=== PATIENT | female | born 1965 ===

== ENCOUNTER 2022-06-04 08:39 | Outpatient (REF) | payer OTHER, SELFPAY ==
--- NOTE | ~2022-06-04 | XR_ITS ---
EXAMINATION: XR HAND, BILATERAL CLINICAL INFORMATION: Osteoarthritis. COMPARISON: None. TECHNIQUE: Three views of the right hand. Three views of the left hand. FINDINGS: There is no acute fracture or subluxation. No suspicious focal bony lesion. No aggressive periosteal new bone formation. MINERALIZATION: Normal. ALIGNMENT: Normal. SOFT TISSUE CALCIFICATIONS: There are soft tissue calcifications associated with the right second and third PIP joints and the right fifth DIP joint. Small soft tissue calcifications present in the region of the left second PIP and the IP and the left third and fourth DIP joints. No chondrocalcinosis in the region of the triangular fibrocartilage on her side JOINT SPACES: There is mild to moderate narrowing of the DIP joints bilaterally. No narrowing of the radiocarpal joint, intercarpal or carpometacarpal joints. No significant narrowing of the MCP joints. OSTEOPHYTES: There are proliferative changes associated with the DIP joints greatest involving the IP joints of each thumb, and the right fifth and left second and third DIP joints. CYSTS/EROSIONS: No convincing cystic or erosive changes. Trace cysts involving the dorsum of the right first proximal phalanx could be present. SOFT TISSUE SWELLING: None. OTHER: None. XR/XR hand RT min 3V IMPRESSION: There are some soft tissue calcifications in a periarticular distribution primarily distally. There are some proliferative changes associated with the DIP joints. No significant erosive arthropathy. Overall pattern could be related to osteoarthritis No previous for comparison
--- NOTE | ~2022-06-04 | XR_ITS ---
EXAMINATION: XR HAND, BILATERAL CLINICAL INFORMATION: Osteoarthritis. COMPARISON: None. TECHNIQUE: Three views of the right hand. Three views of the left hand. FINDINGS: There is no acute fracture or subluxation. No suspicious focal bony lesion. No aggressive periosteal new bone formation. MINERALIZATION: Normal. ALIGNMENT: Normal. SOFT TISSUE CALCIFICATIONS: There are soft tissue calcifications associated with the right second and third PIP joints and the right fifth DIP joint. Small soft tissue calcifications present in the region of the left second PIP and the IP and the left third and fourth DIP joints. No chondrocalcinosis in the region of the triangular fibrocartilage on her side JOINT SPACES: There is mild to moderate narrowing of the DIP joints bilaterally. No narrowing of the radiocarpal joint, intercarpal or carpometacarpal joints. No significant narrowing of the MCP joints. OSTEOPHYTES: There are proliferative changes associated with the DIP joints greatest involving the IP joints of each thumb, and the right fifth and left second and third DIP joints. CYSTS/EROSIONS: No convincing cystic or erosive changes. Trace cysts involving the dorsum of the right first proximal phalanx could be present. SOFT TISSUE SWELLING: None. OTHER: None. XR/XR hand LT min 3V IMPRESSION: There are some soft tissue calcifications in a periarticular distribution primarily distally. There are some proliferative changes associated with the DIP joints. No significant erosive arthropathy. Overall pattern could be related to osteoarthritis No previous for comparison
== END 2022-06-04 08:40 | disposition home or self-care (01) ==
LOC: HO.XRAY 08:39
PROVIDERS: PCP Internal Medicine; Visit Provider Internal Medicine Rheumatology
DX: M17.0 Bilateral primary osteoarthritis of knee (principal); M19.041 Primary osteoarthritis, right hand; M19.042 Primary osteoarthritis, left hand; M79.7 Fibromyalgia; M10.9 Gout, unspecified; M19.071 Primary osteoarthritis, right ankle and foot; M47.816 Spondylosis without myelopathy or radiculopathy, lumbar region
CPT/HCPCS: 20610; 73130; 99212

== ENCOUNTER 2022-10-13 14:14 | Outpatient (REF) | payer OTHER, SELFPAY ==
[2022-10-13 15:01] LABS: Anion Gap 12 (12-20); Blood Urea Nitrogen 16 mg/dL (9-16); Calcium 9.7 mg/dL (8.4-10.2); Carbon Dioxide 25 mmol/L (22-29); Chloride 109 mmol/L (96-108); Estimated Glomerular Filt Rate > 60; Glucose Random 89 mg/dL (60-115); Potassium 4.6 mmol/L (3.3-5.1); Sodium 141 mmol/L (135-145); Uric Acid 7.7 mg/dL (2.4-5.7)
== END 2022-10-13 14:15 | disposition home or self-care (01) ==
LOC: HO.XRAY 14:14
PROVIDERS: PCP Internal Medicine; Visit Provider Internal Medicine Rheumatology
DX: M47.816 Spondylosis without myelopathy or radiculopathy, lumbar region (principal); M19.041 Primary osteoarthritis, right hand; M19.042 Primary osteoarthritis, left hand; M79.671 Pain in right foot; M79.672 Pain in left foot; M79.7 Fibromyalgia; M10.9 Gout, unspecified
CPT/HCPCS: 36415; 73630; 80048; 84550; 99212

== ENCOUNTER 2023-04-13 14:09 | Outpatient (REF) | payer OTHER, SELFPAY ==
--- NOTE | ~2023-04-13 | XR_ITS ---
EXAMINATION: XR FOOT, LEFT CLINICAL INFORMATION: Pain COMPARISON: None available. TECHNIQUE: AP, lateral, and oblique views of the left foot. FINDINGS: There is a small calcaneal heel and retrocalcaneal enthesophytes. Ankle mortise and subtalar joints are normal. No visible fracture, dislocation subluxation seen involving the left foot. The soft tissues are normal XR/XR foot LT min 3V IMPRESSION: Small calcaneal heel and retrocalcaneal enthesophytes. No visible acute fracture, dislocation or subluxation seen.
[2023-04-13 17:07] LABS: Estimated Glomerular Filt Rate 50; Uric Acid 9.2 mg/dL (2.4-5.7)
== END 2023-04-13 14:10 | disposition home or self-care (01) ==
LOC: HO.LAB 14:09
PROVIDERS: PCP Internal Medicine; Visit Provider Internal Medicine Rheumatology
DX: M10.9 Gout, unspecified (principal); M17.0 Bilateral primary osteoarthritis of knee; M19.041 Primary osteoarthritis, right hand; M19.042 Primary osteoarthritis, left hand; M19.071 Primary osteoarthritis, right ankle and foot; M47.816 Spondylosis without myelopathy or radiculopathy, lumbar region; M79.672 Pain in left foot
CPT/HCPCS: 36415; 73630; 82565; 84550; 99212

== ENCOUNTER 2023-04-29 14:04 | Outpatient (REF) | payer OTHER, SELFPAY ==
[2023-04-29 14:52] LABS: Estimated Glomerular Filt Rate > 60; Uric Acid 6.1 mg/dL (2.4-5.7)
== END 2023-04-29 14:05 | disposition home or self-care (01) ==
LOC: HO.LAB 14:04
PROVIDERS: PCP Internal Medicine; Visit Provider Internal Medicine Rheumatology
DX: M10.9 Gout, unspecified (principal)
CPT/HCPCS: 36415; 82565; 84550

== ENCOUNTER 2023-06-02 11:49 | Outpatient (REF) | payer OTHER, SELFPAY ==
[2023-06-02 13:20] LABS: Estimated Glomerular Filt Rate > 60; Uric Acid 5.6 mg/dL (2.4-5.7)
== END 2023-06-02 11:50 | disposition home or self-care (01) ==
LOC: HO.LAB 11:49
PROVIDERS: PCP Internal Medicine; Visit Provider Internal Medicine Rheumatology
DX: M10.9 Gout, unspecified (principal)
CPT/HCPCS: 36415; 82565; 84550

== ENCOUNTER 2023-07-29 09:54 | Outpatient (REF) | payer OTHER, SELFPAY ==
[2023-07-29 11:57] LABS: Estimated Glomerular Filt Rate > 60; Uric Acid 4.5 mg/dL (2.4-5.7)
== END 2023-07-29 09:55 | disposition home or self-care (01) ==
LOC: HO.WFDLDS 09:54
PROVIDERS: Visit Provider Internal Medicine Rheumatology
DX: M10.9 Gout, unspecified (principal)
CPT/HCPCS: 36415; 82565; 84550

== ENCOUNTER 2023-08-19 10:58 | Outpatient (AMB) | payer OTHER, SELFPAY ==
[2023-08-19 11:00] VITALS: BP 118/70; PULSE 87; TEMP 36.3; O2SAT 97; BMI 48.2
--- NOTE | 2023-08-19 11:00 | MHC.OFFVIS ---
Intake Vital Signs 08/19/23 11:00 Height 4 ft 11 in Weight 238 lb 12.17 oz BMI 48.2 BP 118/70 Blood Pressure Location Lt brachial Position Sitting Pulse 87 Pulse Source Pulse Oximeter Temp 97.3 F Temp Source Skin Pulse Oximetry (%) 97 Oxygen Delivery Method Room Air Intake Visit Reasons: Gout Intake Note: Patient presents today to follow up on gout and test results. Patient would like to decrease allopurinol. Requesting medication list for traveling. 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 Accompanied by: Self / Same As Patient Allergies azithromycin [AZITHROMYCIN] Allergy (Unknown, Unverified 08/19/23 11:04) UNKNOWN Penicillins [PENICILLINS] Allergy (Unknown, Unverified 08/19/23 11:04) SEIZURE Medication List - Last Reconciled 08/19/23 by Sivakumar Rodriguez MD acetaminophen (Tylenol Extra Strength) 500 mg PO Q6H PRN albuterol sulfate 90 mcg/actuation (ProAir HFA) 2 puffs inhalation Q6H PRN albuterol sulfate 90 mcg/actuation 2 puffs inhalation Q6H PRN allopurinol 300 mg PO DAILY cetirizine 10 mg PO DAILY citalopram 40 mg PO DAILY clonazepam 1 mg PO BEDTIME PRN fluticasone propion-salmeterol 115-21 mcg/actuation (Advair HFA) 2 puffs inhalation BID fluticasone propionate 50 mcg/actuation 2 sprays intranasal DAILY hydrochlorothiazide 25 mg PO DAILY levothyroxine 75 mcg PO DAILY lisinopril 10 mg PO DAILY omeprazole 20 mg PO DAILY quetiapine 50 mg PO BEDTIME zolpidem 10 mg PO BEDTIME PRN HPI HPI Comments History of Present Illness Details The patient returns for evaluation of her gout, fibromyalgia, and osteoarthritis. She has been on a stable dose of 300 mg daily allopurinol for the last few months. She reports no gout attacks. She has not been needing the prednisone for the gout. She still has overall muscle aches and pains that she feels are due to her fibromyalgia. The knees are worse with prolonged standing or walking and they have occasional swelling. She is taking some Tylenol extra-strength for that on her intermittent basis. She remains on citalopram and clonazepam. [facility] Medical History (Updated 08/19/23 @ 13:39 by Sivakumar Rodriguez MD) Trigger finger of all digits of both hands Carpal tunnel syndrome on both sides Surgical History History of cholecystectomy History of hysterectomy History of appendectomy Social History Household Members Other:: lives alone Housing: Apartment Are you a primary adult care provider to a significant other at home: No Do you presently have visiting nurse or other home services: No 75 years or older and lives alone: No Alcohol intake: never Patient Tobacco Use Status: Never used Tobacco e-Cigarette/Vaping Use: Never Used service: No Current occupational status: disabled Cognitive needs: No Hearing needs: No Vision needs: Yes Review of Systems Const Details: Negative for appetite change, weight change, fever, chills, malaise and fatigue Eyes Details: Negative for vision change, dry eyes,headaches and dizziness GI Details: Negative indigestion/heartburn, nausea, abdominal pain, bowel changes, diarrhea, constipation and bloody stool. Skin/Breast Details: Negative for itching, rash, hives, Raynaud's symptoms, sun sensitivity, and skin cancer Endo Details: Negative for polyuria and polydypsia Jim/Lymph Details: Negative for excessive bruising or bleeding. Physical Exam Vital Signs: Last Vital Signs Temp 97.3 F 08/19/23 11:00 Pulse 87 08/19/23 11:00 BP 118/70 08/19/23 11:00 Pulse Ox 97 08/19/23 11:00 Oxygen Delivery Method Room Air 08/19/23 11:00 BMI result Body Mass Index 48.2 APPEARANCE: Patient in no acute distress EYES no redness, pupils equal and reactive to light, eyelids normal EXTREMITIES: No edema, no calf tenderness. There are areas of superficial varicosities in the legs; they are not tender today. She has normal peripheral pulses. SKIN: No inflammatory or neoplastic lesions. Normal color and turgor JOINT EXAM: Cervical Spine:.? Mild pain with lateral flexion to 10 degrees to either side.? Pain is felt mostly over the posterior cervical muscle area where she has some mild tenderness. Thoracic Spine:.? No scoliosis.? No tenderness on palpation. Lumbar Spine:.? Alignment normal.? Mild pain with extremes Full range of motion, no tenderness. Chest Wall:.? No tenderness, swelling, increased warmth or erythema. Hands:.? Right:? No flexor tendon trigger tenderness or triggering is appreciated.? There is evidence of surgery at the 1st 3 flexor tendons.? There is some mild bony enlargement with minimal tenderness at the 2nd through 5th DIP joints.? No other areas of tenderness or swelling.? Left:? Evidence for surgery at the 2nd and 3rd flexor tendons but no triggering.? There is mild bony enlargement and mild tenderness at the thumb IP and the 2nd, 3rd and 5th PIP's.? No thenar atrophy or sensory loss.? Wrists:.? Right:? Mild pain with flexion or extension to 75 degrees with some slight tenderness but no swelling.? Left:? Normal pain-free range of motion without tenderness, swelling, increased warmth or erythema. Elbows: Normal pain-free range of motion without tenderness, swelling, increased warmth or erythema. Shoulders:.??Right:? Full range of motion without pain. No tenderness, weakness, swelling, increased warmth or erythema.? Left:? Mild pain with abduction 150 degrees.? Slight anterior tenderness without abductor weakness or adenopathy. Hips:? Full range of motion without pain. Hip bursa:.? No tenderness. Knees:.?? Right:? Mild pain with extremes of normal flexion or extension.? There is slight medial and lateral tenderness without redness or effusion.? Left:? Normal pain-free range of motion with some mild medial compartment tenderness without effusion, swelling, increased warmth or erythema.? Ankles:.? Normal pain-free range of motion without tenderness, swelling, increased warmth or erythema. Feet:.? Right: There is mild 1st MTP bony enlargement bilaterally.? This area is not tender but there is hallux valgus deformity.? There is no instep or MTP tenderness. No tenderness in the toes. Left: There is no swelling or tenderness in the instep region. The 1st MTP has slight tenderness and minimal bony enlargement. No tenderness or swelling in the toes. No redness or warmth. Tender points:? Mild tenderness to digital palpation at the occiput, trapezius, second rib, lateral epicondyle, knees, greater trochanter and gluteal area bilaterally. Results Reviewed Results Reviewed: Laboratory Tests 08/08/23 08/08/23 10/04/23 11:58 11:58 09:57 Creatinine 0.91 0.81 Uric Acid 5.6 07/29/23 09:57 Creatinine Uric Acid 4.5 [address] [place] [address] XRay Report Signed Patient: Shweta Alarcon MR#: [id number] : 1965 Acct:[id number] Age/Sex: 57 / F ADM Date: 04/13/[address]: Sivakumar Rodriguez MD Ordering Physician: Sivakumar Rodriguez MD Date of Service: 04/13/23 Procedure(s): XR foot LT min 3V Accession Number(s): [id number] cc: Sivakumar Rodriguez MD~ EXAMINATION: XR FOOT, LEFT CLINICAL INFORMATION: Pain COMPARISON: None available. TECHNIQUE: AP, lateral, and oblique views of the left foot. FINDINGS: There is a small calcaneal heel and retrocalcaneal enthesophytes. Ankle mortise and subtalar joints are normal. No visible fracture, dislocation subluxation seen involving the left foot. The soft tissues are normal XR/XR foot LT min 3V IMPRESSION: Small calcaneal heel and retrocalcaneal enthesophytes. No visible acute fracture, dislocation or subluxation seen. Dictated By: Yunior Auguste MD Assessment & Plan Assessment & Plan (1) Osteoarthritis of hands, bilateral: Code(s): M19.041 - Primary osteoarthritis, right hand; M19.042 - Primary osteoarthritis, left hand (2) Osteoarthritis of knees, bilateral: Code(s): M17.0 - Bilateral primary osteoarthritis of knee (3) Fibromyalgia: Code(s): M79.7 - Fibromyalgia (4) Gout: Code(s): M10.9 - Gout, unspecified Plan Gout with good control of hyperuricemia. There do not appear to be any signs of acute gout presently. She has some signs of osteoarthritis in the hands and knees. Otherwise the multiple tender points and widespread pain are consistent with fibromyalgia. She will continue with acetaminophen if needed. I suggest some diclofenac gel on the DIP joints when they are uncomfortable from osteoarthritis. A recheck visit in a year would be reasonable if her primary doctor wants us to refill the allopurinol but at this dose it seems to be controlling her hyperuricemia well. Medications: New diclofenac sodium 1% apply to involved joints once or twice a day 1 - 2 grams topical QID 100 grams 4RF M19.041 - Primary osteoarthritis, right hand, M19.042 - Primary osteoarthritis, left hand Coding Level of Care Code Est Pt Level 3 (25647) Diagnoses Osteoarthritis of hands, bilateral M19.041; M19.042 Osteoarthritis of knees, bilateral M17.0 Fibromyalgia M79.7 Gout M10.9
== END 2023-08-19 11:27 | disposition home or self-care (01) ==
PROVIDERS: PCP Internal Medicine; Visit Provider Internal Medicine Rheumatology
DX: M19.041 Primary osteoarthritis, right hand (principal); M19.042 Primary osteoarthritis, left hand; M17.0 Bilateral primary osteoarthritis of knee; M79.7 Fibromyalgia; M10.9 Gout, unspecified
CPT/HCPCS: 99213

== ENCOUNTER → 2023-08-19 10:58 | Outpatient (BNVA) | payer OTHER, SELFPAY | PROVIDERS: PCP Internal Medicine; Visit Provider Internal Medicine Rheumatology | DX: M17.0 Bilateral primary osteoarthritis of knee (principal); M79.7 Fibromyalgia; M10.9 Gout, unspecified; M19.041 Primary osteoarthritis, right hand; M19.042 Primary osteoarthritis, left hand | CPT/HCPCS: 99212 ==

== ENCOUNTER 2024-03-22 10:04 | Outpatient (AMB) | payer OTHER, SELFPAY ==
--- NOTE | 2024-03-22 10:34 | MHC.OFFVIS ---
Vital Signs 03/22/24 10:59 Height 4 ft 11 in Weight 236 lb 5.369 oz BMI 47.7 BP 110/62 Blood Pressure Location Rt brachial Position Sitting Pulse 82 Pulse Oximetry (%) 97 Intake Visit Reasons: Gout Intake Note: Patient presents today for evaluation on right knee pain and possible cortisone injection. Jewel Hole Driller Required: No Allergies azithromycin [AZITHROMYCIN] Allergy (Unknown, Unverified 03/22/24 10:40) UNKNOWN Penicillins [PENICILLINS] Allergy (Unknown, Unverified 03/22/24 10:40) SEIZURE HPI Comments Details: Ms. Alarcon 58 yoF returns for follow-up of her gout, fibromyalgia, and osteoarthritis. She has been on a stable dose of 300 mg daily allopurinol for the last few months. She reports no gout attacks. She has not been needing the prednisone for the gout. She still has overall muscle aches and pains that she feels are due to her fibromyalgia and also Obesity. The knees are worse with prolonged standing or walking and they have occasional swelling. She is taking Tylenol extra-strength for that on her intermittent basis. She remains on citalopram and clonazepam --long time (over 3 years) for knee injections. --today the right knee is worse - feels a pulling in the back when tries to straighten, --She has been walking and losing weight. - knee sometimes feels unstable and paulie - the knee brace she uses rolls. 08/19/2023 Dr. Rodriguez: The patient returns for evaluation of her gout, fibromyalgia, and osteoarthritis. She has been on a stable dose of 300 mg daily allopurinol for the last few months. She reports no gout attacks. She has not been needing the prednisone for the gout. She still has overall muscle aches and pains that she feels are due to her fibromyalgia. The knees are worse with prolonged standing or walking and they have occasional swelling. She is taking some Tylenol extra-strength for that on her intermittent basis. She remains on citalopram and clonazepam. [facility] Medical History (Updated 03/22/24 @ 10:51 by TANIA Mcgowan) Trigger finger of all digits of both hands Carpal tunnel syndrome on both sides Surgical History History of cholecystectomy History of hysterectomy History of appendectomy Social History Household Members Other:: lives alone Housing: Apartment Are you a primary medication care manager to a significant other at home: No Do you presently have visiting nurse or other home services: No 75 years or older and lives alone: No Alcohol intake: never Patient Tobacco Use Status: Never used Tobacco e-Cigarette/Vaping Use: Never Used service: No Current occupational status: disabled Cognitive needs: No Hearing needs: No Vision needs: Yes Review of Systems Const All systems reviewed & are unremarkable except as noted in HPI and below Physical Exam APPEARANCE: Patient in no acute distress EYES no redness, pupils equal and reactive to light, eyelids normal EXTREMITIES: No edema, no calf tenderness. There are areas of superficial varicosities in the legs; they are not tender today. She has normal peripheral pulses. SKIN: No inflammatory or neoplastic lesions. Normal color and turgor JOINT EXAM: Cervical Spine:.? Mild pain with lateral flexion to 10 degrees to either side.? Pain is felt mostly over the posterior cervical muscle area where she has some mild tenderness. Thoracic Spine:.? No scoliosis.? No tenderness on palpation. Lumbar Spine:.? Alignment normal.? Mild pain with extremes Full range of motion, no tenderness. Chest Wall:.? No tenderness, swelling, increased warmth or erythema. Hands:.? Right:? No flexor tendon trigger tenderness or triggering is appreciated.? There is evidence of surgery at the 1st 3 flexor tendons.? There is some mild bony enlargement with minimal tenderness at the 2nd through 5th DIP joints.? No other areas of tenderness or swelling.? Left:? Evidence for surgery at the 2nd and 3rd flexor tendons but no triggering.? There is mild bony enlargement and mild tenderness at the thumb IP and the 2nd, 3rd and 5th PIP's.? No thenar atrophy or sensory loss.? Wrists:.? Right:? Mild pain with flexion or extension to 75 degrees with some slight tenderness but no swelling.? Left:? Normal pain-free range of motion without tenderness, swelling, increased warmth or erythema. Elbows: Normal pain-free range of motion without tenderness, swelling, increased warmth or erythema. Shoulders:.??Right:? Full range of motion without pain. No tenderness, weakness, swelling, increased warmth or erythema.? Left:? Mild pain with abduction 150 degrees.? Slight anterior tenderness without abductor weakness or adenopathy. Hips:? Full range of motion without pain. Hip bursa:.? No tenderness. Knees:.?? Right:? Mild pain with extremes of normal flexion or extension.? There is slight medial and lateral tenderness without redness or effusion.?Tenderness to back with palpation. Left:? Normal pain-free range of motion with some mild medial compartment tenderness without effusion, swelling, increased warmth or erythema.? Ankles:.? Normal pain-free range of motion without tenderness, swelling, increased warmth or erythema. Feet:.? Right: There is mild 1st MTP bony enlargement bilaterally.? This area is not tender but there is hallux valgus deformity.? There is no instep or MTP tenderness. No tenderness in the toes. Left: There is no swelling or tenderness in the instep region. The 1st MTP has slight tenderness and minimal bony enlargement. No tenderness or swelling in the toes. No redness or warmth. Tender points:? Mild tenderness to digital palpation at the occiput, trapezius, second rib, lateral epicondyle, knees, greater trochanter and gluteal area bilaterally. Assessment & Plan Assessment & Plan (1) Osteoarthritis of hands, bilateral: Code(s): M19.041 - Primary osteoarthritis, right hand; M19.042 - Primary osteoarthritis, left hand Category: Medical Qualifiers: Osteoarthritis type: primary Qualified Code(s): M19.041 - Primary osteoarthritis, right hand; M19.042 - Primary osteoarthritis, left hand (2) Osteoarthritis of knees, bilateral: Code(s): M17.0 - Bilateral primary osteoarthritis of knee Category: Medical Qualifiers: Osteoarthritis type: primary Qualified Code(s): M17.0 - Bilateral primary osteoarthritis of knee (3) Gout: Code(s): M10.9 - Gout, unspecified Category: Medical Qualifiers: Gout site: multiple sites Encounter type: sequela Chronicity: chronic Presence of tophus: without tophus Plan #Gout and OA:Gout with good control of hyperuricemia. There do not appear to be any signs of acute gout presently. She can continue allopurinol 300mg QD (by PCP) as this dose seems to be controlling her hyperuricemia well. She has some signs of osteoarthritis in the hands and knees. She will continue with acetaminophen if needed and also diclofenac gel on the DIP joints when they are uncomfortable from osteoarthritis. Obtain labs 1 week before next visit #Right Knee Pain/Ovidio Knee OA:Today the the right knee is more bothersome, with posterior tenderness and possible hercules cyst. Waiting for [facility] from [facility]. Recommend a knee brace to help with stability during prolonged activities such as walking which she does for exercise. Patient will call if she desires a knee injection if the right knee is not improved with brace, Tylenol and hamstring stretches. The patient may also benefit from proper foot wear when she walks for long periods. Recommended foot analysis at the [id number]. #Fibromyalgia: The multiple tender points and widespread pain are consistent with fibromyalgia. A recheck visit in 6 months. 30 minutes spent reviewing history, evaluating patient and documenting Orders: Orders Uric Acid Today M10.9 - Gout, unspecified, M17.0 - Bilateral primary osteoarthritis of knee Comprehensive Met. Panel Today M10.9 - Gout, unspecified, M17.0 - Bilateral primary osteoarthritis of knee Complete Blood Count Auto Diff Today M10.9 - Gout, unspecified, M17.0 - Bilateral primary osteoarthritis of knee C Reactive Protein Today M10.9 - Gout, unspecified, M17.0 - Bilateral primary osteoarthritis of knee Erythrocyte Sedimentation Rate Today M10.9 - Gout, unspecified, M17.0 - Bilateral primary osteoarthritis of knee Medications: New leg brace (Knee Brace Large-XLarge) Apply to knee, especially right during prolong activities such as walking. 1 ea 0RF M17.0 - Bilateral primary osteoarthritis of knee Coding Level of Care Code Est Pt Level 4 (51883) Complex EM visit Add On G2211 Diagnoses Primary osteoarthritis of both hands M19.041; M19.042 Osteoarthritis type: primary Primary osteoarthritis of both knees M17.0 Osteoarthritis type: primary Gout M10.9 Gout site: multiple sites Encounter type: sequela Chronicity: chronic Presence of tophus: without tophus
[2024-03-22 10:59] VITALS: BP 110/62; PULSE 82; O2SAT 97; BMI 47.7
== END 2024-03-22 11:24 | disposition home or self-care (01) ==
PROVIDERS: PCP Internal Medicine; Visit Provider Nurse Practitioner Family
DX: M19.041 Primary osteoarthritis, right hand (principal); M19.042 Primary osteoarthritis, left hand; M17.0 Bilateral primary osteoarthritis of knee; M10.9 Gout, unspecified
CPT/HCPCS: 99214; G2211

== ENCOUNTER → 2024-03-22 10:04 | Outpatient (BNVA) | payer OTHER, SELFPAY | PROVIDERS: PCP Internal Medicine; Visit Provider Nurse Practitioner Family | DX: M19.041 Primary osteoarthritis, right hand (principal); M19.042 Primary osteoarthritis, left hand; M17.0 Bilateral primary osteoarthritis of knee; M10.9 Gout, unspecified | CPT/HCPCS: 99212 ==

== ENCOUNTER 2024-05-17 07:37 | Outpatient (AMB) | payer OTHER, SELFPAY ==
[2024-05-17 07:45] VITALS: BP 120/70; PULSE 77; O2SAT 99; BMI 48.9
--- NOTE | 2024-05-17 07:45 | MHC.OFFVIS ---
Vital Signs 05/17/24 07:45 Height 4 ft 11 in Weight 242 lb 1.081 oz BMI 48.9 BP 120/70 Blood Pressure Location Lt brachial Position Sitting Pulse 77 Pulse Source Pulse Oximeter Pulse Oximetry (%) 99 Oxygen Delivery Method Room Air Intake Visit Reasons: Knee pain/swelling/cm Intake Note: Patient is here for knee pain and swelling for almost a month. Wheat Buyer Required: No Accompanied by: Self / Same As Patient Allergies azithromycin [AZITHROMYCIN] Allergy (Unknown, Unverified 05/17/24 07:50) UNKNOWN Penicillins [PENICILLINS] Allergy (Unknown, Unverified 05/17/24 07:50) SEIZURE Medication List - Last Reconciled 05/17/24 by Nanette Velasco MD acetaminophen (Tylenol Extra Strength) 500 mg PO Q6H PRN albuterol sulfate 90 mcg/actuation (ProAir HFA) 2 puffs inhalation Q6H PRN albuterol sulfate mg inhalation allopurinol 300 mg PO DAILY cetirizine 10 mg PO DAILY citalopram 40 mg PO DAILY clonazepam 1 mg PO BEDTIME PRN diclofenac sodium 1% 1 - 2 grams topical QID fluticasone propion-salmeterol 115-21 mcg/actuation (Advair HFA) 2 puffs inhalation BID fluticasone propionate 50 mcg/actuation 2 sprays intranasal DAILY hydrochlorothiazide 25 mg PO DAILY leg brace (Knee Brace Large-XLarge) Apply to knee, especially right during prolong activities such as walking. levothyroxine 75 mcg PO DAILY lisinopril 10 mg PO DAILY omeprazole 20 mg PO DAILY quetiapine 50 mg PO BEDTIME rizatriptan mg PO zolpidem 10 mg PO BEDTIME PRN HPI Comments Details: This is a 58-year-old female with gout, generalized osteoarthritis and fibromyalgia who presents for evaluation of right knee pain. Did that for the last 3 weeks she has been having significant right knee pain. She does not recall an injury, she feels that her right knee locks and catches and almost gives out on her, no significant swelling. Difficulty with walking. Inability to fully extend the knee. She stated that had knee injections in the past, most recent was about a year and a half ago. She stated that knee injections generally provide reasonable relief PFSH Medical History Trigger finger of all digits of both hands Carpal tunnel syndrome on both sides Surgical History History of cholecystectomy History of hysterectomy History of appendectomy Social History Household Members Other:: lives alone Housing: Apartment Are you a primary palliative care coordinator to a significant other at home: No Do you presently have visiting nurse or other home services: No 75 years or older and lives alone: No Alcohol intake: never Patient Tobacco Use Status: Never used Tobacco e-Cigarette/Vaping Use: Never Used service: No Current occupational status: disabled Cognitive needs: No Hearing needs: No Vision needs: Yes Review of Systems Musc Reports arthralgias, Reports limited range of motion and Reports stiffness Physical Exam Vital Signs: Last Vital Signs Pulse 77 05/17/24 07:45 BP 120/70 05/17/24 07:45 Pulse Ox 99 05/17/24 07:45 Oxygen Delivery Method Room Air 05/17/24 07:45 BMI result Body Mass Index 48.9 Const General: cooperative, healthy appearing and comfortable Nutritional Appearance: obese morbidly obese Orientation/consciousness: patient oriented x3 Limitations: no limitations HEENT Head: Yes normocephalic and Yes atraumatic Mouth: moist mucous membranes Resp Effort & Inspection: normal respiratory effort and able to speak in complete sentences Skin General skin exam: no rashes or lesions noted Neuro General: patient oriented x3 Extrem Other: Right knee warmth, inability to fully extend the knee Pain with flexion-extension of the knee Office Procedures Joint Injection/Drain Joint Injection/Drain Primary Site: right knee Prep: site was prepped using sterile technique and ethochloride spray was applied Injected: 40 mg of, Kenalog, with 1 mL of, 1% plain lidocaine and in the joint Approach Used: medial parapatellar Procedure: The patient tolerated the procedure well Coding Details: With the patient's consent the right knee was prepped with ChloraPrep and alcohol. The skin was anesthetized with 2 cc of 1% lidocaine. The knee was then injected with 40 mg of triamcinolone and 1 cc of I % lidocaine. The patient tolerated the procedure with no immediate adverse effects. 25373 - Large joint Procedure code (CPT) selection complete Assessment & Plan Assessment & Plan (1) Osteoarthritis of knees, bilateral: Code(s): M17.0 - Bilateral primary osteoarthritis of knee Category: Medical Qualifiers: Osteoarthritis type: primary Qualified Code(s): M17.0 - Bilateral primary osteoarthritis of knee Plan: This is a 58-year-old female with gout, osteoarthritis and fibromyalgia who presents for evaluation of right knee pain. Known bilateral knee osteoarthritis. Right knee pain worsening over the last 3-4 weeks associated with locking, catching. Right knee is warm on exam. With patient's consent, right knee was injected with Kenalog. If no improvement in about 2 months, will consider knee MRI to rule out internal derangement (2) Gout: Code(s): M10.9 - Gout, unspecified Category: Medical Qualifiers: Gout site: multiple sites Encounter type: subsequent encounter Chronicity: chronic Presence of tophus: without tophus Plan: Gout well controlled on allopurinol 300 mg daily. Check uric acid level before next visit Plan I spent 30 minutes reviewing patient's chart, evaluating patient, ordering diagnostic workup, counseling patient and documenting in the chart Orders: Orders AMB Joint Injection/Aspiration Today M17.0 - Bilateral primary osteoarthritis of knee Uric Acid 2 Months M10.9 - Gout, unspecified, M17.0 - Bilateral primary osteoarthritis of knee Comprehensive Met. Panel 2 Months M10.9 - Gout, unspecified, M17.0 - Bilateral primary osteoarthritis of knee Coding Level of Care Code Est Pt Level 4 (66638) Diagnoses Primary osteoarthritis of both knees M17.0 Osteoarthritis type: primary Gout M10.9 Gout site: multiple sites Encounter type: subsequent encounter Chronicity: chronic Presence of tophus: without tophus CPT Codes Coding - 19399 Large joint: 20868 - Large joint ([id number])
== END 2024-05-17 08:23 | disposition home or self-care (01) ==
PROVIDERS: PCP Internal Medicine; Visit Provider Student in an Organized Health Care Education/Training Program
DX: M17.0 Bilateral primary osteoarthritis of knee (principal); M10.9 Gout, unspecified
CPT/HCPCS: 20610; 99214

== ENCOUNTER → 2024-05-17 07:37 | Outpatient (BNVA) | payer OTHER, SELFPAY | PROVIDERS: PCP Internal Medicine; Visit Provider Student in an Organized Health Care Education/Training Program | DX: M17.0 Bilateral primary osteoarthritis of knee (principal); M10.9 Gout, unspecified; Z79.899 Other long term (current) drug therapy | CPT/HCPCS: 20610; 99212; J2003; J3301 ==

== ENCOUNTER 2024-07-18 10:33 | Outpatient (REF) | payer OTHER, SELFPAY ==
[2024-07-18 10:46] LABS: MANUAL DIFF FLAG NO
[2024-07-18 11:45] LABS: Basophils Percent Auto 0.3 % (0-2); Eosinophils Absolute Auto 0.1 X10*3/uL (0.0-0.4); Eosinophils Percent Auto 1.7 % (0-4); Hematocrit 41.2 % (37.0-47.0); Hemoglobin 13.3 g/dl (12.0-16.0); Imm Gran Abs Auto 0.02 X10*3/uL (0.00-0.03); Imm Gran Pct Auto 0.3 % (0.0-0.4); Lymphocytes Absolute Auto 1.5 X10*3/uL (1.2-4.9); Lymphocytes Percent Auto 22.8 % (20-40); Mean Corpuscular HGB Conc 32.3 g/dl (31.0-35.0); Mean Corpuscular Hemoglobin 29.9 pg (27.0-33.0); Mean Corpuscular Volume 92.6 fL (80.0-98.0); Mean Platelet Volume 11.8 fL (9.4-12.3); Monocytes Absolute Auto 0.5 X10*3/uL (0.1-1.2); Monocytes Percent Auto 7.7 % (2-11); Neutrophils Absolute Auto 4.4 x10*3/uL (2.0-8.3); Neutrophils Percent Auto 67.2 % (45-73); Platelet Count 221 X10*3/uL (160-400); Red Blood Count 4.45 X10*6/uL (4.20-5.50); Red Cell Distribution Width 13.1 % (11.0-16.0); White Blood Count 6.5 X10*3/uL (4.8-10.8)
[2024-07-18 12:31] LABS: Erythrocyte Sedimentation Rate 37 MM/HR (0-20)
[2024-07-18 12:37] LABS: Alanine Aminotransferase 16 U/L (0-31); Albumin Level 4.1 g/dL (3.5-5.0); Alkaline Phosphatase 80 U/L (39-117); Anion Gap 10 (12-20); Aspartate Amino Transferase 12 U/L (5-31); Bilirubin Total 0.3 mg/dL (0.0-1.0); Blood Urea Nitrogen 13 mg/dL (9-16); C Reactive Protein 0.76 mg/dL (< or = 0.50); Calcium 9.5 mg/dL (8.4-10.2); Carbon Dioxide 29 mmol/L (22-29); Chloride 110 mmol/L (96-108); Estimated Glomerular Filt Rate > 60; Glucose Random 101 mg/dL (60-115); Potassium 4.5 mmol/L (3.3-5.1); Sodium 144 mmol/L (135-145); Total Protein 7.5 g/dL (6.5-8.0); Uric Acid 7.9 mg/dL (2.4-5.7)
== END 2024-07-18 10:34 | disposition home or self-care (01) ==
LOC: HO.LAB 10:33
PROVIDERS: Nurse Practitioner Family; PCP Internal Medicine; Visit Provider Student in an Organized Health Care Education/Training Program
DX: M17.0 Bilateral primary osteoarthritis of knee (principal); M10.9 Gout, unspecified
CPT/HCPCS: 36415; 80053; 84550; 85025; 85652; 86140

== ENCOUNTER 2024-09-02 07:10 | Outpatient (AMB) | payer OTHER, SELFPAY ==
--- NOTE | 2024-09-02 07:19 | A.OFFVIS_ITS ---
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 Allergies azithromycin [AZITHROMYCIN] Allergy (Unknown, Verified 09/02/24 07:24) UNKNOWN Penicillins [PENICILLINS] Allergy (Unknown, Verified 09/02/24 07:24) SEIZURE Medication List - Last Reconciled 09/02/24 by Emely Estes MD acetaminophen (Tylenol Extra Strength) 500 mg PO Q6H PRN albuterol sulfate 90 mcg/actuation (ProAir HFA) 2 puffs inhalation Q6H PRN albuterol sulfate mg inhalation allopurinol 300 mg PO DAILY cetirizine 10 mg PO DAILY citalopram 40 mg PO DAILY clonazepam 1 mg PO BEDTIME PRN diclofenac sodium 1% 1 - 2 grams topical QID fluticasone propion-salmeterol 115-21 mcg/actuation (Advair HFA) 2 puffs inhalation BID fluticasone propionate 50 mcg/actuation 2 sprays intranasal DAILY hydrochlorothiazide 25 mg PO DAILY leg brace (Knee Brace Large-XLarge) Apply to knee, especially right during prolong activities such as walking. levothyroxine 75 mcg PO DAILY lisinopril 10 mg PO DAILY omeprazole 20 mg PO DAILY quetiapine 50 mg PO BEDTIME rizatriptan mg PO zolpidem 10 mg PO BEDTIME PRN HPI Comments Details: Patient is a 59-year-old morbidly obese female with non crystal proven gout, hypertension, hypothyroidism and polyarticular osteoarthritis who presents today for an acute sick visit for left knee pain Interval History: Patient last seen 05/14/[address] Chente jesus for an acute visit for right knee pain. She was given an intra-articular steroid injection at that time with relief. With respect to her gout she is currently on allopurinol 300 however her uric acid is not at goal and she is no longer taking colchicine because it irritates her stomach Today she complains of a 3 day history of left knee pain and swelling. Denies any trauma Rheumatologic History: Non crystal proven gout Polyarticular osteoarthritis involving knees and hands Current Rheumatology Medication(s): Allopurinol 300 mg daily Colchicine 0.6 mg daily [facility] Medical History Trigger finger of all digits of both hands Carpal tunnel syndrome on both sides Surgical History History of cholecystectomy History of hysterectomy History of appendectomy Social History Household Members Other:: lives alone Housing: Apartment Are you a primary care attendant to a significant other at home: No Do you presently have visiting nurse or other home services: No 75 years or older and lives alone: No Alcohol intake: never Patient Tobacco Use Status: Never used Tobacco e-Cigarette/Vaping Use: Never Used service: No Current occupational status: disabled Cognitive needs: No Hearing needs: No Vision needs: Yes Review of Systems Const Details: Review of Systems Constitutional: Denies fever, chills, weight loss ENT: Denies vision changes, eye pain or eye redness, dental caries, dry mouth GI: Denies nausea, vomiting, diarrhea, abdominal pain, change in BM Pulm: Denies SOB, LOPEZ, hemoptysis, wheezing Cards: Denies chest pain, palpitations Skin: Denies Raynaud's, rash, nail changes, photosensitivity, ON CALL PHARMACY TECHNICIAN: Denies headaches, weakness, paresthesias, recurrent falls MSK: as per HPI All other systems reviewed and are unremarkable except noted above Physical Exam Vital Signs: Last Vital Signs Pulse 78 09/02/24 07:25 BP 124/80 09/02/24 07:25 Pulse Ox 98 09/02/24 07:25 Oxygen Delivery Method Room Air 09/02/24 07:25 BMI result Body Mass Index 47.7 Physical Examination CONSTITUITIONAL Patient alert and cooperative. Well appearing and in no apparent painful distress HEENT Conjunctiva and sclera clear. ?Pupils equal round and reactive to light. ?No lymphadenopathy. ?Normal dentition. No oral or nasal ulcers noted. No evidence of discoid rash to the alisha of ears CHEST/RESPIRATORY SYSTEM Normal respiratory effort and able to speak in complete sentences. ?Clear to auscultation bilaterally. ?No crackles, rales, rhonchi, wheezes heard. CARDIAC SYSTEM Regular rate and rhythm. ?S1 and S2 heard no murmurs. ?Radial pulses intact bilaterally MSK Hands: ?Good retirement sales consultant strength bilaterally - 5/5. ?No deformities noted. ?No synovitis noted to the MCPs, PIPs or DIPs. ?No tenderness to palpation of these joints. Wrists: ?Full range of motion at the wrists without pain. ?No tenderness to palpation or synovitis noted to the wrists. Elbows: Full range of motion without pain. No tenderness, weakness, swelling, increased warmth or erythema. Shoulders: Full range of motion without pain. No tenderness, weakness, swelling, increased warmth or erythema. Hips: Full range of motion without pain. Hip bursa: No tenderness to palpation Knees: ?Left knee obese and warm to touch unable to fully appreciate if there is any swelling because of the size of the knees. Right knee without warmth or tenderness to palpation Ankles: Full range of motion. ?No tenderness, swelling, increased warmth or erythema.? Feet: ?Negative squeeze test. ?No tenderness to palpation or swelling of the MTPs. Tender points:??No tenderness to palpation of the neck, shoulders, chest, elbows, hips, buttocks or knees. SKIN Skin intact without rashes. Office Procedures AMB Joint Injection/Aspiration Joint Injection/Aspiration Details: Procedure was explained to the patient and consent was obtained. ? The area of interest was identified and confirmed with patient. ?This was subsequently cleaned with chlorhexidine x3. ? The area was then anesthetized using ethyl chloride spray. 40 mg Kenalog with 1 cc 1% lidocaine was injected without issue. ?Minimal to no bleeding. ?Patient tolerated procedure. Primary Site: left knee Prep: site was prepped using aseptic technique and ethochloride spray was applied Injected: 40 mg of, Kenalog, with 1 mL of, 1% plain lidocaine and in the joint Approach Used: medial parapatellar Procedure: The patient tolerated the procedure well Coding 82370 - Large joint Procedure code (CPT) selection complete Office Meds Kenalog 40 mg/mL suspension for injection Performing Provider: Emely Estes MD Performing Location: [facility] [place] [facility] Administered by: Emely Estes MD on 09/02/24 08:12 Dose Route Admin Location Dispensed Lot Number Expiration Date [facility] Devulcanizer Operator 40 mg intra-articular 1 mL [id number] 02/23/26 [address]-7 [employer] lidocaine (PF) 10 mg/mL (1 %) injection solution Performing Provider: Emely Estes MD Performing Location: [facility] [place] [facility] Administered by: Emely Estes MD on 09/02/24 08:12 Dose Route Admin Location Dispensed Lot Number Expiration Date [employer] Devulcanizer Operator 10 mg Infiltration 2 mL [id number] 01/24/27 31917-564-16 [employer] Results Reviewed Results Reviewed: Laboratory Tests 07/18/24 10:44 WBC 6.5 RBC 4.45 Hgb 13.3 Hct 41.2 MCV 92.6 MCH 29.9 MCHC 32.3 Plt Count 221 ESR 37 H Sodium 144 Potassium 4.5 Chloride 110 H Carbon Dioxide 29 Anion Gap 10 L BUN 13 Creatinine 0.86 Uric Acid 7.9 H C-Reactive Protein 0.76 H Assessment & Plan Assessment & Plan (1) Gout flare: Code(s): M10.9 - Gout, unspecified Qualifiers: Gout site: knee Gout etiology: idiopathic Laterality: left Qualified Code(s): M10.062 - Idiopathic gout, left knee Plan: #Acute monoarticular arthritis Patient presents with acute monoarticular arthritis involving the left knee. Differentials include gout flare, OA flare, infection. Arthrocentesis performed however no fluid was removed. Attempted suprapatellar and medial parapatellar approaches and both were met with dry taps. Injected 40 mg of Kenalog with 1 cc 1% lidocaine. Based on her last uric acid which was 7.9 we will presume this is a gout flare. Plan to increase her allopurinol from 300-400 mg daily. We will add prednisolone 2.5 mg daily and stop colchicine since this causes GI issues and this prohibits her from taking it. (2) Gout: Code(s): M10.9 - Gout, unspecified Category: Medical Qualifiers: Chronicity: chronic Gout site: multiple sites Presence of tophus: without tophus Gout etiology: idiopathic Qualified Code(s): M1A.09X0 - Idiopathic chronic gout, multiple sites, without tophus (tophi) Plan: # non crystal proven non tophaceous gout Patient uric acid not at goal and last check we will increase allopurinol and ensure patient is taking prednisone to prevent flares while we get uric acid under control (3) Osteoarthritis of knees, bilateral: Code(s): M17.0 - Bilateral primary osteoarthritis of knee Category: Medical Qualifiers: Osteoarthritis type: primary Qualified Code(s): M17.0 - Bilateral primary osteoarthritis of knee Plan: #OA knees Physical therapy Plan I spent 40 minutes reviewing the record and labs, seeing the patient, discussing the treatment plan and documenting in the medical record ? Orders: Orders Comprehensive Met. Panel 3 Months M10.9 - Gout, unspecified, M17.0 - Bilateral primary osteoarthritis of knee Uric Acid 3 Months M10.9 - Gout, unspecified, M17.0 - Bilateral primary osteoarthritis of knee C Reactive Protein 3 Months M10.9 - Gout, unspecified, M17.0 - Bilateral primary osteoarthritis of knee Erythrocyte Sedimentation Rate 3 Months M10.9 - Gout, unspecified, M17.0 - Bilateral primary osteoarthritis of knee AMB Joint Injection/Aspiration Today M10.9 - Gout, unspecified, M17.0 - Bilateral primary osteoarthritis of knee Medications: New allopurinol 400 mg (2 x 200 mg) PO DAILY 180 tabs 1RF M10.9 - Gout, unspecified prednisone 2.5 mg PO DAILY 90 tabs 1RF M10.9 - Gout, unspecified Discontinued allopurinol Note dose increase to 300 mg daily Discontinued Reason: Doctor's Order 300 mg PO DAILY 90 tabs 3RF M10.9 - Gout, unspecified Coding Level of Care Code Est Pt Level 5 (68266) Complex EM visit Add On G2211 Diagnoses Acute idiopathic gout of left knee M10.062 Gout site: knee Gout etiology: idiopathic Laterality: left Idiopathic chronic gout of multiple sites without tophus M1A.09X0 Chronicity: chronic Gout site: multiple sites Presence of tophus: without tophus Gout etiology: idiopathic Primary osteoarthritis of both knees M17.0 Osteoarthritis type: primary CPT Codes Coding - 42311 Large joint: 51640 - Large joint ([id number])
[2024-09-02 07:25] VITALS: BP 124/80; PULSE 78; O2SAT 98; BMI 47.7
== END 2024-09-02 07:59 | disposition home or self-care (01) ==
LOC: HO.RHE 07:10
PROVIDERS: PCP Internal Medicine; Visit Provider Student in an Organized Health Care Education/Training Program
DX: M10.062 Idiopathic gout, left knee (principal); M1A.09X0 Idiopathic chronic gout, multiple sites, without tophus (tophi); M17.0 Bilateral primary osteoarthritis of knee; M10.9 Gout, unspecified
CPT/HCPCS: 20610; 99215

== ENCOUNTER → 2024-09-02 07:10 | Outpatient (BNVA) | payer OTHER, SELFPAY | PROVIDERS: PCP Internal Medicine; Visit Provider Student in an Organized Health Care Education/Training Program | DX: M10.062 Idiopathic gout, left knee (principal); M1A.09X0 Idiopathic chronic gout, multiple sites, without tophus (tophi); M17.0 Bilateral primary osteoarthritis of knee | CPT/HCPCS: 20610; 99212; J2003; J3300 ==

== ENCOUNTER 2024-09-21 12:20 | Outpatient (AMB) | payer OTHER, SELFPAY ==
[2024-09-21 12:39] VITALS: BP 132/80; PULSE 90; BMI 48.5
--- NOTE | 2024-09-21 12:39 | A.OFFVIS_ITS ---
Vital Signs 09/21/24 12:39 Height 4 ft 11 in Weight 240 lb 4.862 oz BMI 48.5 BP 132/80 Blood Pressure Location Rt brachial Position Sitting Pulse 90 Pulse Source Pulse Oximeter Intake Visit Reasons: Knee pain/Gout./cm Intake Note: Patient presents today for a follow-up on Knee Pain/Gout: Pain scale 1-10, 6: Chemist Steroids Required: No Accompanied by: Self / Same As Patient Allergies azithromycin [AZITHROMYCIN] Allergy (Unknown, Verified 09/21/24 12:41) UNKNOWN Penicillins [PENICILLINS] Allergy (Unknown, Verified 09/21/24 12:41) SEIZURE Medication List - Last Reconciled 09/21/24 by Emely Estes MD acetaminophen (Tylenol Extra Strength) 500 mg PO Q6H PRN albuterol sulfate 90 mcg/actuation (ProAir HFA) 2 puffs inhalation Q6H PRN albuterol sulfate mg inhalation allopurinol 400 mg (2 x 200 mg) PO DAILY cetirizine 10 mg PO DAILY citalopram 40 mg PO DAILY clonazepam 1 mg PO BEDTIME PRN diclofenac sodium 1% 1 - 2 grams topical QID fluticasone propion-salmeterol 115-21 mcg/actuation (Advair HFA) 2 puffs inhalation BID fluticasone propionate 50 mcg/actuation 2 sprays intranasal DAILY hydrochlorothiazide 25 mg PO DAILY leg brace (Knee Brace Large-XLarge) Apply to knee, especially right during prolong activities such as walking. levothyroxine 75 mcg PO DAILY lisinopril 10 mg PO DAILY omeprazole 20 mg PO DAILY prednisone 2.5 mg PO DAILY quetiapine 50 mg PO BEDTIME rizatriptan mg PO zolpidem 10 mg PO BEDTIME PRN HPI Comments Details: Patient is a 59-year-old morbidly obese female with non crystal proven gout, hypertension, hypothyroidism and polyarticular osteoarthritis who presents today for an acute sick visit for left knee pain Interval History: Patient last seen 09/02/2024 with me. At that time she was complaining of pain and swelling to her left knee. Examination was consistent with an acute gout flare. Arthrocentesis was performed however it was a dry tap likely secondary to her body habitus. Steroids were injected. Based on her uric acid her allopurinol was increased from 300-400 mg and her colchicine was switched Prednisone due to side effects. Today she reports improvement after about 3 days post injection. Overall the pain is improved but she now notices some instability involving bilateral knees. Rheumatologic History: Non crystal proven gout Polyarticular osteoarthritis involving knees and hands Current Rheumatology Medication(s): [id number] mg daily Prednisone 2.5mg [facility] Medical History (Updated 09/21/24 @ 13:23 by Emely Estes MD) Current use of steroid medication On allopurinol therapy Trigger finger of all digits of both hands Carpal tunnel syndrome on both sides Surgical History History of cholecystectomy History of hysterectomy History of appendectomy Social History Household Members Other:: lives alone Housing: Apartment Are you a primary residential caregiver to a significant other at home: No Do you presently have visiting nurse or other home services: No 75 years or older and lives alone: No Alcohol intake: never Patient Tobacco Use Status: Never used Tobacco e-Cigarette/Vaping Use: Never Used service: No Current occupational status: disabled Cognitive needs: No Hearing needs: No Vision needs: Yes Review of Systems Const Details: Review of Systems Constitutional: Denies fever, chills, weight loss ENT: Denies vision changes, eye pain or eye redness, dental caries, dry mouth GI: Denies nausea, vomiting, diarrhea, abdominal pain, change in BM Pulm: Denies SOB, LOPEZ, hemoptysis, wheezing Cards: Denies chest pain, palpitations Skin: Denies Raynaud's, rash, nail changes, photosensitivity, LABORER STORES: Denies headaches, weakness, paresthesias, recurrent falls MSK: as per HPI All other systems reviewed and are unremarkable except noted above Physical Exam Vital Signs: Last Vital Signs Pulse 90 09/21/24 12:39 BP 132/80 09/21/24 12:39 BMI result Body Mass Index 48.5 Physical Examination CONSTITUITIONAL Patient alert and cooperative. Well appearing and in no apparent painful distress HEENT Conjunctiva and sclera clear. No evidence of discoid rash to the alisha of ears CHEST/RESPIRATORY SYSTEM Normal respiratory effort and able to speak in complete sentences. ?Clear to auscultation bilaterally. ?No crackles, rales, rhonchi, wheezes heard. CARDIAC SYSTEM Regular rate and rhythm. ?S1 and S2 heard no murmurs. ?Radial pulses intact bilaterally MSK Hands: ?Good rail director strength bilaterally - 5/5. ?No deformities noted. ?No synovitis noted to the MCPs, PIPs or DIPs. ?No tenderness to palpation of these joints. No tophi noted Wrists: ?Full range of motion at the wrists without pain. ?No tenderness to palpation or synovitis noted to the wrists. Elbows: Full range of motion without pain. No tenderness, weakness, swelling, increased warmth or erythema. Shoulders: Full range of motion without pain. No tenderness, weakness, swelling, increased warmth or erythema. Hips: Full range of motion without pain. Hip bursa: No tenderness to palpation Knees: ?Bilateral knees with full range of motion. No warmth or tenderness to palpation. Ankles: Full range of motion. ?No tenderness, swelling, increased warmth or erythema.? Feet: ?Negative squeeze test. ?No tenderness to palpation or swelling of the MTPs. Tender points:??No tenderness to palpation of the neck, shoulders, chest, elbows, hips, buttocks or knees. SKIN Skin intact without rashes. Results Reviewed Results Reviewed: Laboratory Tests 07/29/23 07/18/24 09:57 10:44 WBC 6.5 RBC 4.45 Hgb 13.3 Hct 41.2 Plt Count 221 ESR 37 H Sodium 144 Potassium 4.5 Chloride 110 H Carbon Dioxide 29 BUN 13 Creatinine 0.86 Uric Acid 4.5 7.9 H C-Reactive Protein 0.76 H Assessment & Plan Assessment & Plan (1) Osteoarthritis of knees, bilateral: Code(s): M17.0 - Bilateral primary osteoarthritis of knee Category: Medical Qualifiers: Osteoarthritis type: primary Qualified Code(s): M17.0 - Bilateral primary osteoarthritis of knee Plan: #Bilateral Knee OA Patient with bilateral knee OA. Check x-rays. Send to physical therapy. (2) Gout: Comment: Allopurinol therapy Colchicine - stopped due to diarrhea Code(s): M10.9 - Gout, unspecified Category: Medical Qualifiers: Chronicity: chronic Gout etiology: idiopathic Gout site: multiple sit es Presence of tophus: without tophus Qualified Code(s): M1A.09X0 - Idiopathic chronic gout, multiple sites, without tophus (tophi) Plan: #Non tophaceous non crystal proven gout Check uric acid today Continue allopurinol 400 daily for now. Uric acid goal less than 6 Continue prednisone 2.5 mg until uric acid at goal. We will try to limit Prednisone given that she is prediabetic and she is also complaining of side effects even on the low dose of 2.5. No further gout flares (3) On allopurinol therapy: Code(s): Z79.899 - Other manager terminal (current) drug therapy Category: Medical Plan: #Long-term Current Use of Allopurinol Risks and benefits of allopurinol discussed with patient Benefits include decreased gout flares, remission of gout and reduction of tophi Risks include allopurinol hypersensitivity syndrome which is a severe cutaneous adverse reaction associated with allopurinol use particularly in patients who are HLA B*5801 positive, increased transaminases, GI upset including diarrhea, nausea and vomiting, and other dermatologic manifestations. [HLA B*5801 checked] (4) Current use of steroid medication: Code(s): Z79.52 - terminal makeup operator (current) use of systemic steroids Category: Medical Plan: #Long-term Use of Steroids Discussed with patient the risks and benefits of steroid for managing the rheumatic condition Benefits include: - Reduced pain, improved mobility, increased participation in activities, and decreased progression of disease Risks include: - GI upset, potential ultrasound worsening or formation (especially in patients > 65 years old), elevated blood pressure/worsening hypertension, elevated blood sugar/worsening diabetes control, worsening of bone density, elevated lipids/worsening triglycerides, cataract formation, weight gain Recommended using proton pump inhibitors (PPIs) for the duration of steroid use to reduce the risk of gastric ulcers and vitamin-D daily to reduce the risk of osteoporosis Labs checked: ?A1c, T spot, hepatitis-B and C serologies Pneumocystis jiroveci prophylaxis: ?Patient with risk factors including steroids greater than 50 mg for more than 30 days, age greater than 60 years, and lung involvement from underlying rheumatic disease requires prophylaxis and will be given so Plan I spent 20 minutes reviewing the record and labs, seeing the patient, discussing the treatment plan and documenting in the medical record ? Orders: Orders C Reactive Protein Today M1A.09X0 - Idiopathic chronic gout, multiple sites, without tophus (tophi), Z79.52 - terminal makeup operator (current) use of systemic steroids, Z79.899 - Other senior care (current) drug therapy Comprehensive Met. Panel Today M1A.09X0 - Idiopathic chronic gout, multiple sites, without tophus (tophi), Z79.52 - [facility] (current) use of systemic steroids, Z79.899 - Other senior care (current) drug therapy XR knee RT 3V Today M17.0 - Bilateral primary osteoarthritis of knee XR knee LT 3V Today M17.0 - Bilateral primary osteoarthritis of knee XR knee standing BI Today M17.0 - Bilateral primary osteoarthritis of knee PT Evaluation and Treatment Today M17.0 - Bilateral primary osteoarthritis of knee Uric Acid Today M1A.09X0 - Idiopathic chronic gout, multiple sites, without tophus (tophi) Erythrocyte Sedimentation Rate Today M1A.09X0 - Idiopathic chronic gout, multiple sites, without tophus (tophi), Z79.52 - terminal makeup operator (current) use of systemic steroids, Z79.899 - Other manager terminal (current) drug therapy Complete Blood Count Auto Diff Today M1A.09X0 - Idiopathic chronic gout, multiple sites, without tophus (tophi), Z79.52 - terminal makeup operator (current) use of systemic steroids, Z79.899 - Other manager terminal (current) drug therapy Coding Level of Care Code Est Pt Level 3 (95925) Diagnoses Primary osteoarthritis of both knees M17.0 Osteoarthritis type: primary Idiopathic chronic gout of multiple sites without tophus M1A.09X0 Chronicity: chronic Gout etiology: idiopathic Gout site: multiple sites Presence of tophus: without tophus On allopurinol therapy Z79.899 Current use of steroid medication Z79.52
== END 2024-09-21 13:50 | disposition home or self-care (01) ==
PROVIDERS: PCP Internal Medicine; Visit Provider Student in an Organized Health Care Education/Training Program
DX: M17.0 Bilateral primary osteoarthritis of knee (principal); M1A.09X0 Idiopathic chronic gout, multiple sites, without tophus (tophi); Z79.899 Other long term (current) drug therapy; Z79.52 Long term (current) use of systemic steroids
CPT/HCPCS: 99213

== ENCOUNTER 2024-09-21 12:20 | Outpatient (REF) | payer OTHER, SELFPAY ==
--- NOTE | ~2024-09-21 | XR_ITS ---
EXAMINATION: XR 3 VIEWS OF THE RIGHT KNEE XR 3 VIEWS OF LEFT KNEE XR SINGLE VIEW OF BOTH KNEES AP UPRIGHT CLINICAL INFORMATION: Bilateral primary osteoarthritis of the knees. COMPARISON: None available. TECHNIQUE: 4 views of each knee including AP upright and tunnel views. FINDINGS: RIGHT KNEE: Medial Compartment: Joint space narrowing and marginal osteophytes indicative of moderate osteoarthritis. Lateral Compartment: Marginal osteophytes without joint space narrowing indicative of mild osteoarthritis. Patellofemoral Compartment: Nonuniform joint space narrowing and marginal osteophytes indicative of gzcf-nb-vgmotctw osteoarthritis. No effusion. Possible loose body posteriorly LEFT KNEE: Medial Compartment: Joint space narrowing and marginal osteophytes indicative of zrzdaifz-uu-butrtt osteoarthritis. Lateral Compartment: Marginal osteophytes indicative of mild osteoarthritis. Patellofemoral Compartment: Mild joint space narrowing and marginal osteophytes indicative of mild osteoarthritis. Small effusion. XR/XR knee LT 3V IMPRESSION: RIGHT KNEE: Tricompartmental osteoarthritis. Moderate osteoarthritis of the medial compartment. Possible loose body. LEFT KNEE: Tricompartmental osteoarthritis with degenerative changes most prominent in the medial compartment being [id number]. Small effusion. Electronically signed by: Tom Hernández MD 09/25/2024 02:15 PM ERIN
--- NOTE | ~2024-09-21 | XR_ITS ---
EXAMINATION: XR 3 VIEWS OF THE RIGHT KNEE XR 3 VIEWS OF LEFT KNEE XR SINGLE VIEW OF BOTH KNEES AP UPRIGHT CLINICAL INFORMATION: Bilateral primary osteoarthritis of the knees. COMPARISON: None available. TECHNIQUE: 4 views of each knee including AP upright and tunnel views. FINDINGS: RIGHT KNEE: Medial Compartment: Joint space narrowing and marginal osteophytes indicative of moderate osteoarthritis. Lateral Compartment: Marginal osteophytes without joint space narrowing indicative of mild osteoarthritis. Patellofemoral Compartment: Nonuniform joint space narrowing and marginal osteophytes indicative of jpve-jx-ctnqmjvr osteoarthritis. No effusion. Possible loose body posteriorly LEFT KNEE: Medial Compartment: Joint space narrowing and marginal osteophytes indicative of pbpqepfx-[id number] osteoarthritis. Lateral Compartment: Marginal osteophytes indicative of mild osteoarthritis. Patellofemoral Compartment: Mild joint space narrowing and marginal osteophytes indicative of mild osteoarthritis. Small effusion. XR/XR knee standing BI IMPRESSION: RIGHT KNEE: Tricompartmental osteoarthritis. Moderate osteoarthritis of the medial compartment. Possible loose body. LEFT KNEE: Tricompartmental osteoarthritis with degenerative changes most prominent in the medial compartment being [id number]. Small effusion. Electronically signed by: Tom Hernández MD 09/25/2024 02:15 PM [facility]
--- NOTE | ~2024-09-21 | XR_ITS ---
EXAMINATION: XR 3 VIEWS OF THE RIGHT KNEE XR 3 VIEWS OF LEFT KNEE XR SINGLE VIEW OF BOTH KNEES AP UPRIGHT CLINICAL INFORMATION: Bilateral primary osteoarthritis of the knees. COMPARISON: None available. TECHNIQUE: 4 views of each knee including AP upright and tunnel views. FINDINGS: RIGHT KNEE: Medial Compartment: Joint space narrowing and marginal osteophytes indicative of moderate osteoarthritis. Lateral Compartment: Marginal osteophytes without joint space narrowing indicative of mild osteoarthritis. Patellofemoral Compartment: Nonuniform joint space narrowing and marginal osteophytes indicative of zdzm-sa-souyxixy osteoarthritis. No effusion. Possible loose body posteriorly LEFT KNEE: Medial Compartment: Joint space narrowing and marginal osteophytes indicative of kmmyhiyx-bo-iqjxwb osteoarthritis. Lateral Compartment: Marginal osteophytes indicative of mild osteoarthritis. Patellofemoral Compartment: Mild joint space narrowing and marginal osteophytes indicative of mild osteoarthritis. Small effusion. XR/XR knee RT 3V IMPRESSION: RIGHT KNEE: Tricompartmental osteoarthritis. Moderate osteoarthritis of the medial compartment. Possible loose body. LEFT KNEE: Tricompartmental osteoarthritis with degenerative changes most prominent in the medial compartment being [id number]. Small effusion. Electronically signed by: Tom Hernández MD 09/25/2024 02:15 PM ERIN
[2024-09-21 13:59] LABS: Basophils Percent Auto 0.3 % (0-2); Eosinophils Absolute Auto 0.1 X10*3/uL (0.0-0.4); Eosinophils Percent Auto 1.2 % (0-4); Hematocrit 39.8 % (37.0-47.0); Hemoglobin 12.9 g/dl (12.0-16.0); Imm Gran Abs Auto 0.03 X10*3/uL (0.00-0.03); Imm Gran Pct Auto 0.4 % (0.0-0.4); Lymphocytes Absolute Auto 1.9 X10*3/uL (1.2-4.9); MANUAL DIFF FLAG NO; Mean Corpuscular HGB Conc 32.4 g/dl (31.0-35.0); Mean Corpuscular Volume 92.6 fL (80.0-98.0); Mean Platelet Volume 10.8 fL (9.4-12.3); Monocytes Absolute Auto 0.5 X10*3/uL (0.1-1.2); Monocytes Percent Auto 6.3 % (2-11); Neutrophils Absolute Auto 4.9 x10*3/uL (2.0-8.3); Neutrophils Percent Auto 65.8 % (45-73); Platelet Count 245 X10*3/uL (160-400); Red Cell Distribution Width 13.7 % (11.0-16.0); White Blood Count 7.5 X10*3/uL (4.8-10.8)
[2024-09-21 14:22] LABS: Alanine Aminotransferase 23 U/L (0-31); Anion Gap 14 (12-20); Aspartate Amino Transferase 21 U/L (5-31); Bilirubin Total 0.2 mg/dL (0.0-1.0); Blood Urea Nitrogen 17 mg/dL (9-16); C Reactive Protein 0.69 mg/dL (< or = 0.50); Calcium 9.2 mg/dL (8.4-10.2); Carbon Dioxide 25 mmol/L (22-29); Chloride 109 mmol/L (96-108); Estimated Glomerular Filt Rate > 60; Glucose Random 84 mg/dL (60-115); Potassium 4.2 mmol/L (3.3-5.1); Sodium 144 mmol/L (135-145); Total Protein 7.3 g/dL (6.5-8.0); Uric Acid 5.6 mg/dL (2.4-5.7)
[2024-09-21 14:36] LABS: Alkaline Phosphatase 90 U/L (39-117)
[2024-09-21 14:45] LABS: Erythrocyte Sedimentation Rate 29 MM/HR (0-20)
== END 2024-09-21 12:21 | disposition home or self-care (01) ==
LOC: HO.XRAY 12:20
PROVIDERS: PCP Internal Medicine; Visit Provider Student in an Organized Health Care Education/Training Program
DX: M1A.09X0 Idiopathic chronic gout, multiple sites, without tophus (tophi) (principal); Z79.899 Other long term (current) drug therapy; Z79.52 Long term (current) use of systemic steroids; M17.0 Bilateral primary osteoarthritis of knee
CPT/HCPCS: 36415; 73562; 73565; 80053; 84550; 85025; 85652; 86140; 99212

== ENCOUNTER 2024-12-06 13:59 | Outpatient (REF) | payer OTHER, SELFPAY ==
[2024-12-06 15:18] LABS: MANUAL DIFF FLAG NO
[2024-12-06 15:44] LABS: Basophils Percent Auto 0.5 % (0-2); Eosinophils Absolute Auto 0.1 X10*3/uL (0.0-0.4); Eosinophils Percent Auto 1.4 % (0-4); Hematocrit 40.9 % (37.0-47.0); Hemoglobin 13.2 g/dl (12.0-16.0); Imm Gran Abs Auto 0.02 X10*3/uL (0.00-0.03); Imm Gran Pct Auto 0.3 % (0.0-0.4); Lymphocytes Absolute Auto 1.9 X10*3/uL (1.2-4.9); Lymphocytes Percent Auto 28.8 % (20-40); Mean Corpuscular HGB Conc 32.3 g/dl (31.0-35.0); Mean Corpuscular Hemoglobin 29.3 pg (27.0-33.0); Mean Corpuscular Volume 90.9 fL (80.0-98.0); Mean Platelet Volume 11.2 fL (9.4-12.3); Monocytes Absolute Auto 0.5 X10*3/uL (0.1-1.2); Monocytes Percent Auto 7.4 % (2-11); Neutrophils Absolute Auto 4.1 x10*3/uL (2.0-8.3); Neutrophils Percent Auto 61.6 % (45-73); Platelet Count 235 X10*3/uL (160-400); Red Cell Distribution Width 13.3 % (11.0-16.0); White Blood Count 6.6 X10*3/uL (4.8-10.8)
--- OUTSIDE RECORDS SUMMARY | 2024-12-06 15:52 | XMS_ITS | Encounter Summary ---
Author Organization [facility] Address [address] [place] [address] Care Team Providers Care Production Welder Name Role Phone Jak Hinojosa MD Primary Care Provider [phone] Reason for Referral * Imaging (Routine) - Closed Specialty Diagnoses / Procedures Referred By Breanna lofton Referred To Contact Radiology Diagnoses Encounter for well woman exam with routine gynecological exam Screening breast examination Procedures MG Mammo Digital Screening w Ruben bilat MG Mammo Digital Screening Martha Blake CNM [address] [place] [phone] Phone: tel: fax: [address] [phone] Phone: tel: Referral ID Status Reason Start Date Expiration Date Visits Re quested Visits Authorized [id number] Closed 11/17/2024 11/17/2025 1 1 Reason for Visit * Imaging (Routine) - Closed Specialty Diagnoses / Procedures Referred By Breanna lofton Referred To Contact Radiology Diagnoses Encounter for well woman exam with routine gynecological exam Screening breast examination Procedures MG Mammo Digital Screening w Ruben bilat MG Mammo Digital Screening Martha Blake CNM [address] [place] [address] Phone: tel: fax: [address] Phone: tel: Referral ID Status Reason Start Date Expiration Date Visits Re quested Visits Authorized [id number] Closed 11/17/2024 11/17/2025 1 1 Encounter Details Date Type Department Care Team (Latest Contact Info) Description 11/21/2024 9:44 AM EST - 11/21/2024 11:59 PM EST Hospital Encounter Radiology Department - [address] [phone] Encounter for well woman exam with routine gynecological exam; Screening breast examination Discharge Disposition: Home or Self Care Social History Tobacco Use Types Packs/Day Years Used Date Smoking Tobacco: Never Smokeless Tobacco: Never Alcohol Use Standard Drinks/Week Comments No 0 (1 standard drink = 0.6 oz pur e alcohol) Interpersonal Safety Answer Date Record ed Physical Abuse 09/28/2024 Verbal Abuse 09/28/2024 Comments No Sex and Gender Information Value Date Recorded Sex Assigned at Female 09/28/2024 8:12 AM EST Legal Sex Female 10:06 AM EST Gender Identity Female 09/28/2024 8:12 AM EST Sexual Orientation Straight 09/28/2024 8: 12 AM EST documented as of this encounter Medications at Time of Discharge acetaminophen (TYLENOL) 500 mg tablet Take 1 Tab by mouth every 6 hours as needed for Pain for up to 14 days. albuterol 2.5 mg /3 mL (0.083 %) nebulizer solution Take 1 Vial by nebulization every 4 hours as needed for Wheezing for up to 30 days albuterol HFA (PROAIR HFA ; PROVENTIL HFA ; VENTOLIN HFA) 90 mcg/actuation inhaler Inhale 2 puffs by mouth every 6 (six) hours if needed for wheezing. allopurinoL (ZYLOPRIM) 300 mg tablet Take 400 mg by mouth 1 (one) time each day. benzonatate (TESSALON) 100 mg capsule Take 1 capsule (100 mg total) by mouth 3 (three) times a day if needed for cough. Do not crush or chew. bisacodyL (DULCOLAX) 5 mg EC tablet Take 2 tablets by mouth right before beginning bowel prep. See instructions provided by the office 2 tablet 09/14/2024 cetirizine (ZyrTEC) 10 mg tablet Take 1 tablet (10 mg total) by mouth 1 (one) time each day. 90 tablet 1 09/05/2024 citalopram (CeleXA) 40 mg tablet Take 1 tablet (40 mg total) by mouth 1 (one) time each day. clonazePAM (KlonoPIN) 0.5 mg tablet Take 1 tablet (0.5 mg total) by mouth 2 (two) times a day. diclofenac (VOLTAREN) 1 % topical gel APPLY 4 GRAMS TOPICALLY FOUR TIMES A DAY TO BILATERAL KNEES 10/06/2024 fluticasone propion-salmeter oL (ADVAIR HFA) 115-21 mcg/actuation inhaler Inhale 2 puffs by mouth 2 (two) times a day. Rinse mouth with water after use to reduce aftertaste and incidence of candidiasis. Do not swallow. fluticasone propionate (FLONASE) 50 mcg/actuation nasal spray : 2 Sprays by Each Nare route daily for 14 days Shake gently. Before first use, prime pump. After use, clean tip and replace cap. gabapentin (NEURONTIN) 100 mg capsule TAKE ONE CAPSULE BY MOUTH THREE TIMES A DAY FOR 15 DAYS 10/12/2024 hydroCHLOROthiaz laura (HYDRODIURIL) 25 mg tablet Take 1 tablet (25 mg total) by mouth 1 (one) time each day. 90 tablet 1 09/05/2024 ibuprofen (ADVIL,MOTRIN) 600 mg tablet Take 1 Tablet by mouth 2 times daily for 7 days. levothyroxine (SYNTHROID, LEVOTHROID) 75 mcg tablet Take 1 tablet (75 mcg total) by mouth 1 (one) time each day before breakfast. 30 each 2 09/05/2024 Lidocaine Pain Relief 4 % patch APPLY 1 PATCH TOPICALLY ONCE DAILY. DO NOT LEAVE PATCH ON FOR MORE THAN 12 HOURS AT A TIME 10/12/2024 lisinopriL (PRINIVIL,ZESTRI L) 10 mg tablet Take 1 tablet (10 mg total) by mouth 1 (one) time each day. 90 each 1 09/05/2024 LORazepam (ATIVAN) 0.5 mg tablet Take 1 tablet (0.5 mg total) by mouth every 6 (six) hours if needed for anxiety. meclizine (ANTIVERT) 25 mg tablet Take 1 tablet (25 mg total) by mouth 3 (three) times a day if needed for dizziness. 06/02/2024 polyethylene glycol (Golytely) 236-22.74-6.74 -5.86 gram solution Take 4L by mouth once for one dose. May substitue any PEG. Starting at 6PM the night before your procedure drink 1 8oz glasses at your own pace until you complete half of the gallon. Finish 2nd half of the gallon 5 hours before your procedure. 4000 mL 09/14/2024 predniSONE (DELTASONE) 2.5 mg tablet Take 1 tablet (2.5 mg total) by mouth 1 (one) time each day. 09/02/2024 QUEtiapine (SEROquel) 50 mg tablet Take 1 tablet (50 mg total) by mouth at bedtime. zolpidem (AMBIEN) 10 mg tablet Take by mouth at bedtime as needed for sleep. omeprazole (PriLOSEC) [address] capsule Take 1 capsule (40 mg total) by mouth 1 (one) time each day. Do not crush or chew. 30 each 2 09/05/2024 documented as of this encounter Discharge Disposition Disposition Code Departure Means Destination Home or Self Care documented in this encounter Plan of Treatment Upcoming Encounters Date Type Department Care Team (Late st Contact Info) Description 01/17/2025 9:45 AM EDT Office Visit Adult Medicine [address] [place] [address] [phone] Paty Nguyen PA [address] [place] [phone] 09/15/2025 2:30 PM EST [facility] [address] [phone] Inderjit Paez MD 175 [facility] [address] [place] [address] documented as of this encounter Procedures Procedure Name Priority Date/Time Associated Diagnosis Comments MG MAMMO DIGITAL SCREENING W RUBEN BILAT Routine 11/21/2024 10:11 AM EST Encounter for well woman exam with routine gynecological exam Screening breast examination documented in this encounter Results * MG Mammo Digital Screening w Ruben bilat (11/21/2024 10:11 AM EST) Anatomical Region Laterality Modality Breast Bilateral Mammography 11/21/2024 7:28 PM EST Impressions 11/21/2024 7:31 PM EST 1. No mammographic evidence of malignancy 2. Scattered fibroglandular tissue BI-RADS CATEGORY: 2 - BENIGN RECOMMENDATION: Screening bilateral mammogram is recommended in 1 year. Mammo Location: [facility], [address] [place] [address], [phone], . -------- FINAL REPORT -------- Dictated By: Sabiha Conroy Dictated Date: 11/21/2024 19:28 ET Assigned Physician: Sabiha Conroy Reviewed and Electronically Signed By: Sabiha Conroy Signed Date: 11/21/2024 19:31 ET Workstation ID: [id number] Transcribed By: Self Edit Transcribed Date: 11/21/2024 19:28 ET Narrative 11/21/2024 7:31 PM EST A BILATERAL DIGITAL 3D SCREENING MAMMOGRAPHY HISTORY: Routine screening. ??Family history of breast cancer in mother. COMPARISON: Mammogram from 12/25/2020 Technique: Bilateral full field digital mammography (3D) was performed using standard CC and MLO projections CAD ??was used to evaluate this mammogram. FINDINGS: Right: No suspicious masses, groups of microcalcification or areas of architectural distortion identified. Stable typically benign parenchymal asymmetries. Left: No suspicious masses, groups of microcalcification or areas of architectural distortion identified. Stable typically benign parenchymal asymmetries. BREAST DENSITY: B - There are scattered areas of fibroglandular density. Procedure Note Sabiha Conroy MD - 11/21/2024 A BILATERAL DIGITAL 3D SCREENING MAMMOGRAPHY HISTORY: Routine screening. Family history of breast cancer in mother. COMPARISON: Mammogram from 12/25/2020 Technique: Bilateral full field digital mammography (3D) was performedusing standard CC and MLO projections CAD was used to evaluate this mammogram. FINDINGS: Right: No suspicious masses, groups of microcalcification or areas ofarchitectural distortion identified. Stable typically benign parenchymalasymmetries. Left: No suspicious masses, groups of microcalcification or areas ofarchitectural distortion identified. Stable typically benign parenchymalasymmetries. BREAST DENSITY: B - There are scattered areas of fibroglandular density. IMPRESSION: 1. No mammographic evidence of malignancy 2. Scattered fibroglandular tissue BI-RADS CATEGORY: 2 - BENIGN RECOMMENDATION: Screening bilateral mammogram is recommended in 1 year. Mammo Location: [facility], [address] [place] [address], [phone], . -------- FINAL REPORT -------- Dictated By: Sabiha Conroy Dictated Date: 11/21/2024 19:28 ET Assigned Physician: Sabiha Conroy Reviewed and Electronically Signed By: Sabiha Conroy Signed Date: 11/21/2024 19:31 ET Workstation ID: [id number] Transcribed By: Self Edit Transcribed Date: 11/21/2024 19:28 ET Martha Garcia CNM IMG BI PROCEDURES Final Resul t documented in this encounter Visit Diagnoses Diagnosis Encounter for well woman exam with routine gynecological exam Screening breast examination Other screening breast examination documented in this encounter Care Teams Production Welder Relationship Specialty Start Date End Date Jak Hinojosa MD [address] [place] [phone] PCP - General Internal Medicine 10/04/14 documented as of this encounter
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
--- OUTSIDE RECORDS SUMMARY | 2024-12-06 15:52 | XMS_ITS | Encounter Summary ---
Author Organization [employer] Address [address] [place] [address] Care Team Providers Care Industrial Refrigeration Mechanic Name Role Phone Jak Hinojosa MD Primary Care Provider [phone] Reason for Referral * Consultation (Routine) - Authorized Specialty Diagnoses / Procedures Referred By Breanna t Referred To Contact Bariatrics Diagnoses Morbid obesity with BMI of 45.0-49.9, adult (CMS/[facility]) Jak Hinojosa MD [address] [place] [address] Phone: tel: fax: Bariatric Surgery [address] [address] Phone: tel: fax: Referral ID Status Reason Start Date Expiration Date Visits Requested Visits Authorized [id number] Authorized Specialty Services Required 11/07/2024 11/07/2025 1 1 * Imaging (Routine) - Closed Specialty Diagnoses / Procedures Referred By Breanna t Referred To Contact Radiology Diagnoses Left kidney mass Procedures MR Abdomen wo and w Contrast Jak Hinojosa MD [address] [place] [address] Phone: tel: fax: Radiology Department - [address] Phone: tel: fax: Referral ID Status Reason Start Date Expiration Date Visits Re quested Visits Authorized [id number] Closed 11/07/2024 01/07/2025 1 1 Reason for Visit * Reason Comments Hospital Follow-up Encounter Details Date Type Department Care Team (Late st Contact Info) Description 11/07/2024 1:30 PM EST Office Visit Adult Medicine [address] [phone] Jak Hinojosa MD [address] [place] [phone] Left kidney mass (Primary Dx); Morbid obesity with BMI of 45.0-49.9, adult (CMS/HCC); Low back pain without sciatica, unspecified back pain laterality, unspecified chronicity Social History Tobacco Use Types Packs/Day Years Used Date Smoking Tobacco: Never Smokeless Tobacco: Never Tobacco Cessation:Counseling Given: Not Answered Alcohol Use Standard Drinks/Week Comments No 0 [...] Sign Reading Time Taken Comments Blood Pressure 130/80 11/07/2024 1:04 PM EST Pulse 74 11/07/2024 1:04 PM EST Temperature 36.2 ??C (97.2 ??F) 11/07/2024 1:04 PM ES T Respiratory Rate 14 11/07/2024 1:04 PM EST Oxygen Saturation 98% 11/07/2024 1:04 PM EST Inhaled Oxygen Concentration - - Weight 111 kg (245 lb) 11/07/2024 1:04 PM EST Height 149.9 cm (4' 11 ) 11/07/2024 1:04 PM EST Body Mass Index 49.48 11/07/2024 1:04 PM EST documented in this encounter Progress Notes * Jak Hinojosa MD - 11/07/2024 1:30 PM EST CHIEF COMPLAINT: Hospital Follow-up IDENTIFIER: Shweta Alarcon is a 59 y.o. old female. HPI: Pt with morbid obesity, chronic pain hx of fibromyalgia,migraines,htn,hypothroidism Pt was admitted for observation from 10/11-11/02/2023 at the [facility]. Pt presented with intractable left lower back pain ongoing for aprox one week. Pt denies any lower ext weakness or altered sensation. Pt denies injury or recent change in physical activity. Pt a week prior was in the hospital for upper endoscopy and colonoscopy and pt noted worsening backpain s/p. Pt denies n/v. Pt did note urination caused worsening of her back pain. Cbc cmp lactic acid wnl Ct abdomen did not show any evidence of acute abnormalities. However incidental 1.5 cm cystic appearing lesion in the interpolar of the left kidney was noted Pt did not have evidence of uti with urinalysis. Back pain was controlled with lidocaine patch and tylenol. Pt was d/gilberto with lidocaine patch,gabapentin,tizandidine and tylenol, pt was recommend to get abdominal MRI as an outpatient Pt had u/s via gastro 10/2024 Right renal length: 10.3 cm in greatest length Left renal length: Not examined. There is no dilation of the intrarenal collecting system in the right kidney. There is no suspicious focal lesion demonstrated in the right kidney. There is an approximately 1.2cm parapelvic cysts in the interpolar right kidney (Bosniak 1) There is no shadowing calculus demonstrated in the right kidney. Pt notes long time struggles with obesity pt notes in the past 10 years ago she would purge. Pt states she has started doing this again recently pt states her therapist is aware and has cautioned against this. Pt is looking for help with weight loss, pt notes in the past she was referred formedical management but her insurance did not cover the GLP-1A Pt bmi today Is 49.48 ROS: GENERAL: Negative for malaise, significant weight loss and fever RESPIRATORY: No cough, wheezing or shortness of breath CARDIOVASCULAR: Negative for chest pain, leg swelling and palpitations MUSCULOSKELETAL: See HPI PAST MEDICAL HISTORY: Patient Active Problem List Diagnosis Date Noted Morbid obesity with BMI of 50.0-59.9, adult ([facility]) 08/16/2024 Cholecystitis 11/25/2021 Allergic rhinitis 01/30/2021 Prediabetes 03/30/2019 Gout 01/11/2019 Varicose veins with pain 09/27/2018 Hemorrhoids 10/23/2016 Fatty liver 10/22/2016 Fibromyalgia 12/24/2015 Migraine 11/28/2015 Hypothyroidism 08/13/2015 Depressive disorder 12/11/2014 Asthma 11/19/2014 Colon polyp 11/19/2014 GERD (gastroesophageal reflux disease) 11/19/2014 Hypertension 11/19/2014 Obstructive sleep apnea 11/19/2014 SOCIAL HISTORY: Social History Tobacco Use Smoking status: Never Smokeless tobacco: Never Substance Use Topics Alcohol use: No FAMILY HISTORY: Family Status Relation Name Status Mother dx'd age 25 Father (Not Specified) Brother (Not Specified) Mother's vickie (Not Specified) Other m. aunts x 3 Alive Neg Hx (Not Specified) No partnership data on file Family History Problem Relation Name Age of Onset Colon cancer Mother dx'd age 25 60s Arthritis Mother dx'd age 25 Breast cancer Mother dx'd age 25 Arthritis Father Other (Other: unknown) Father Colon cancer Brother 35.00 Breast cancer Mother's side 3 cousins, all maternal Breast cancer Other m. aunts x 3 Ovarian cancer Neg Hx Uterine cancer Neg Hx ACTIVE MEDICATIONS: Outpatient Medications Marked as Taking for the 11/07/24 encounter (Office Visit) with Jak Hinojosa MD Medication Sig Dispense Refill acetaminophen (TYLENOL) 500 mg tablet Take 1 [...] instructions provided by the office 2 tablet 0 cetirizine (ZyrTEC) 10 mg tablet Take 1 tablet (10 mg total) by mouth 1 (one) time each day. 90 tablet 1 citalopram (CeleXA) 40 mg tablet Take 1 tablet (40 mg total) by mouth 1 (one) time each day. clonazePAM (KlonoPIN) 0.5 mg tablet Take 1 tablet (0.5 mg total) by mouth 2 (two) times a day. fluticasone propion-salmeteroL (ADVAIR HFA) 115-21 mcg/actuation inhaler Inhale 2 puffs by mouth 2 (two) times a day. Rinse mouth with water after use to reduce aftertaste and incidence of candidiasis. Do not swallow. fluticasone propionate (FLONASE) 50 mcg/actuation nasal spray : 2 Sprays by Each Nare route daily for 14 days Shake gently. Before first use, prime pump. After use, clean tip and replace cap. hydroCHLOROthiazide (HYDRODIURIL) 25 mg tablet Take 1 tablet (25 mg total) by mouth 1 (one) time each day. 90 tablet 1 ibuprofen (ADVIL,MOTRIN) 600 mg tablet Take 1 Tablet by mouth 2 times daily for 7 days. levothyroxine (SYNTHROID, LEVOTHROID) 75 mcg tablet Take 1 tablet (75 mcg total) by mouth 1 (one) time each day before breakfast. 30 each 2 lisinopriL (PRINIVIL,ZESTRIL) 10 mg tablet Take 1 tablet (10 mg total) by mouth 1 (one) time each day. 90 each 1 LORazepam (ATIVAN) 0.5 mg tablet Take 1 tablet (0.5 mg total) by mouth every 6 (six) hours if needed for anxiety. omeprazole (PriLOSEC) [address] capsule Take 1 capsule (40 mg total) by mouth 1 (one) time each day.Do not crush or chew. 30 each 2 predniSONE (DELTASONE) 2.5 mg tablet Take 1 tablet (2.5 mg total) by mouth 1 (one) time each day. QUEtiapine (SEROquel) 50 mg tablet Take 1 tablet (50 mg total) by mouth at bedtime. zolpidem (AMBIEN) 10 mg tablet Take by mouth at bedtime as needed for sleep. ALLERGIES: Azithromycin, Penicillins, Levofloxacin, and Naproxen PHYSICAL EXAM: Blood pressure 130/80, pulse 74, temperature 36.2 ??C (97.2 ??F), temperature source Temporal, resp. rate 14, height 1.499 m (59 ), weight 111 kg (245 lb), SpO2 98%. Body mass index is 49.48 kg/m??. Plan is deferred until next visit APPEARANCE: Alert and in no acute distress EYES: PERRLA, conjunctiva and sclera normal HEART: RRR with normal S1 and S2, no murmurs, no gallops, no JVD appreciated LUNG: clear to auscultation bilaterally EXTREMITIES: Extremities warm and well perfused without clubbing, cyanosis, or edema LABS: none IMPRESSION: 1. Left kidney mass 2. Morbid obesity with BMI of 45.0-49.9, adult (CMS/HCC) 3. Low back pain without sciatica, unspecified back pain laterality, unspecified chronicity PLAN: Pt with recent hospital stay for back pain pt with chronic pain at baseline pt was treated wth lidocaine and tylenol with relief pt notes the back pain currently is tolerable. Pt was noted to have incidental lesion noted on left kidney pt since had u/s showing paraplevic cyst right kidney I wonder if this was a typo, at this time will order abdominal mri to ensure we have clear understanding of the kidney lesion Pt with morbid obesity pt expressed frustration with her weight states she has recently started purging , pt therapist aware and cautioned her to stop, I also told the patient this is very dangerous and she needs to stop, I will refer patient to bariatric surgery pt is interested in weight loss surgery 2. Pt to follow up with care team as scheduled for 12/06/2024 No orders of the defined types were placed in this encounter. ADDITIONAL ORDERS: None Jak Hinojosa MD on 11/07/2024 at 12:37 PM EST documented in this encounter Plan of Treatment Upcoming Encounters Date Type Department Care Team (Late st Contact Info) Description 01/17/2025 9:45 AM EDT Office Visit Adult Medicine [facility] [address] [place] [address] Paty Nguyen PA [address] [place] [address] 09/15/2025 2:30 PM EST [facility] [address] [facility] [address] [place] [address] Inderjit Paez MD [address] [facility] [address] [place] [address] Scheduled Referrals Name Type Priority Associated Diagnoses Order Schedule Ambulatory referral to Bariatric Surgery Outpatient Referral Routine Morbid obesity with BMI of 45.0-49.9, adult (CMS/HCC) 1 Occurrences starting 11/07/2024 until 11/07/2025 documented as of this encounter Results * MR Abdomen wo and w Contrast (11/15/2024 10:11 AM EST) Anatomical Region Laterality Modality Body Magnetic Resonan ce 11/15/2024 7:36 PM EST Impressions 11/16/2024 1:50 PM EST Bilateral renal cysts. ??No suspicious renal lesion. Hepatomegaly and steatosis. POS [id number] -------- FINAL REPORT -------- Dictated By: Gisell Erickson Dictated Date: 11/15/2024 19:36 ET Assigned Physician: Gisell Erickson Reviewed and Electronically Signed By: Gisell Erickson Signed Date: 11/16/2024 13:50 ET Workstation ID: [id number] Transcribed By: Self Edit Transcribed Date: 11/15/2024 20:01 ET Narrative 11/16/2024 1:50 PM EST EXAM: ??MRI abdomen HISTORY: ??Follow-up parapelvic cyst in the right kidney on ultrasound. COMPARISON: None CORRELATION: ??Abdominal ultrasound 10/25/2024 and 11/12/2022 TECHNIQUE: Exam performed on a 1.5 Trina high-field MRI scanner. ??Multiplanar imaging performed without and with contrast and tailored for assessment of the kidneys. ??20 cc of Dotarem administered intravenously. FINDINGS: Liver: Enlarged measuring 20 cm in craniocaudad extent. ??Parenchyma shows drop in signal on opposed phase imaging from steatosis. ??0.7 cm T1 hypointense and T2 hyperintense lesion in the anterior inferior right hepatic lobe which enhances homogeneously and remains enhancing on the later phase images compatible with a small hemangioma. Gallbladder/biliary tree: Status post cholecystectomy. ??No intrahepatic biliary ductal dilatation. ??Dilatation of the common hepatic duct up to 1.1 cm which is similar to prior ultrasound exams. ??Low insertion of the cystic duct. ??Common bile duct measures 0.7 cm maximally and tapers distally. Spleen: No abnormality detected. Pancreas: No abnormality detected. Adrenal glands: No masses. Kidneys/ureters: ??No hydronephrosis. ??1.3 cm parapelvic cyst in the right mid kidney. ??Small peripelvic cysts in the left mid/lower kidney measuring up to 1.0 cm. ??Several bilateral cortical cysts which are more numerous on the left and measure up to 1.5 cm in the left mid kidney. ??This cyst may have a thin septation. ??No suspicious enhancing renal lesion. Vasculature: No abdominal aortic aneurysm. ??Hepatic veins and portal vein are patent. Peritoneum: No significant ascites or organized collection. Lymph nodes: No lymphadenopathy detected. Bowel: Nonobstructed bowel pattern. Lower thorax: No infiltrate in the basal lungs. ??No pleural or pericardial effusions. Procedure Note Gisell Erickson MD - 11/16/2024 EXAM: MRI abdomen HISTORY: Follow-up parapelvic cyst in the right kidney on ultrasound. COMPARISON: None CORRELATION: Abdominal ultrasound 10/25/2024 and 11/12/2022 TECHNIQUE: Exam performed on a 1.5 Trina high-field MRI scanner.Multiplanar imaging performed without and with contrast and tailored forassessment of the kidneys. 20 cc of Dotarem administered intravenously. FINDINGS: Liver: Enlarged measuring 20 cm in craniocaudad extent. Parenchyma showsdrop in signal on opposed phase imaging from steatosis. 0.7 cm [id number] and T2 hyperintense lesion in the anterior inferior righthepatic lobe which enhances homogeneously and remains enhancing on thelater phase images compatible with a small hemangioma. Gallbladder/biliary tree: Status post cholecystectomy. No intrahepaticbiliary ductal dilatation. Dilatation of the common hepatic duct up to1.1 cm which is similar to prior ultrasound exams. Low insertion of thecystic duct. Common bile duct measures 0.7 cm maximally and tapersdistally. Spleen: No abnormality detected. Pancreas: No abnormality detected. Adrenal glands: No masses. Kidneys/ureters: No hydronephrosis. 1.3 cm parapelvic cyst in the rightmid kidney. Small peripelvic cysts in the left mid/lower kidney measuringup to 1.0 cm. Several bilateral cortical cysts which are more numerous onthe left and measure up to 1.5 cm in the left mid kidney. This cyst mayhave a thin septation. No suspicious enhancing renal lesion. Vasculature: No abdominal aortic aneurysm. Hepatic veins and portal veinare patent. Peritoneum: No significant ascites or organized collection. Lymph nodes: No lymphadenopathy detected. Bowel: Nonobstructed bowel pattern. Lower thorax: No infiltrate in the basal lungs. No pleural or pericardialeffusions. IMPRESSION: Bilateral renal cysts. No suspicious renal lesion. Hepatomegaly and steatosis. POS [id number] -------- FINAL REPORT -------- Dictated By: Gisell Erickson Dictated Date: 11/15/2024 19:36 ET Assigned Physician: Gisell Erickson Reviewed and Electronically Signed By: Gisell Erickson Signed Date: 11/16/2024 13:50 ET Workstation ID: [id number] Transcribed By: Self Edit Transcribed Date: 11/15/2024 20:01 ET us Jak Hinojosa MD IMG MRI PROCEDURES Final Result documented in this encounter Visit Diagnoses Diagnosis Left kidney mass- Primary Unspecified disorder of kidney and ureter Morbid obesity with BMI of 45.0-49.9, adult (CMS/HCC) Low back pain without sciatica, unspecified back pain laterality, unspecified chronicity Left kidney mass Unspecified disorder of kidney and ureter documented in this encounter Care Teams Industrial Refrigeration Mechanic Relationship Specialty Start Date End Date Jak Hinojosa MD [address] [place] [address] PCP - General Internal Medicine 10/04/14 documented as of this encounter
--- OUTSIDE RECORDS SUMMARY | 2024-12-06 15:52 | XMS_ITS | Encounter Summary ---
Author Organization [facility] Address [address] [place] [address] Care Team Providers Care Knitting Inspector Name Role Phone Jak Hinojosa MD Primary Care Provider [phone] Reason for Visit * Reason Onset Date Comments Results 11/21/2024 Encounter Details Date Type Department Care Team (Late st Contact Info) Description 11/21/2024 Telephone Adult Medicine [address] [phone] Jak Hinojosa MD [address] [place] [address] Results Social History Tobacco Use Types Packs/Day Years [...] AM EST documented as of this encounter Progress Notes * Corina Liu - 11/24/2024 8:48 AM EST Patient is calling she is looking for the results on her MR Abdomen wo and w Contrast that was doneon 11/07/24 Please advise * DAMON Ashraf - 11/22/2024 10:23 PM EST What results is patient looking for? I last saw her in August 2024. * Judy Dowling MA - 11/22/2024 10:19 AM EST Can you please advice for pt ? * Rashi Mims - 11/21/2024 2:01 PM EST Wants to know the result of radiology please call back documented in this encounter Plan of Treatment Upcoming Encounters Date Type Department Care Team (Late st Contact Info) Description 01/17/2025 9:45 AM EDT Office Visit Adult Medicine [address] [phone] Paty Nguyen PA [address] [place] [address] 09/15/2025 2:30 PM EST [facility] [address] [facility] [address] [place] [phone] Inderjit Paez MD [address] [place] [address] documented as of this encounter Visit Diagnoses Not on filedocumented in this encounter Care Teams Knitting Inspector Relationship Specialty Start Date End Date Jak Hinojosa MD [address] [place] [address] PCP - General Internal Medicine 10/04/14 documented as of this encounter
--- OUTSIDE RECORDS SUMMARY | 2024-12-06 15:52 | XMS_ITS | Encounter Summary ---
Author Organization [employer] Address [address] [place] [address] Care Team Providers Care Network Engineer Name Role Phone Jak Hinojosa MD Primary Care Provider [phone] Reason for Referral * Imaging (Routine) - Closed Specialty Diagnoses / Procedures Referred By Contac t Referred To Contact Radiology Diagnoses Left kidney mass Procedures MR Abdomen wo and w Contrast Jak Hinojosa MD [address] [place] [address] Phone: tel: fax: Radiology [address] Phone: tel: fax: Referral ID Status Reason Start Date Expiration Date Visits Re quested Visits Authorized [id number] Closed 11/07/2024 01/07/2025 1 1 Reason for Visit * Imaging (Routine) - Closed Specialty Diagnoses / Procedures Referred By Contac t Referred To Contact Radiology Diagnoses Left kidney mass Procedures MR Abdomen wo and w Contrast Jak Hinojosa MD [address] [place] [address] Phone: tel: fax: Radiology Department - [address] [address] Phone: tel: fax: Referral ID Status Reason Start Date Expiration Date Visits Re quested Visits Authorized [id number] Closed 11/07/2024 01/07/2025 1 1 Encounter Details Date Type Department Care Team (Latest Contact Info) Description 11/15/2024 8:39 AM EST - 11/15/2024 11:59 PM EST Hospital Encounter Radiology Department - [address] [phone] Left kidney mass Discharge Disposition: Home or Self Care Social [...] crush or chew. 30 each 2 09/05/2024 doxycycline (ADOXA) 100 mg tablet Take 1 tablet (100 mg total) by mouth 2 (two) times a day. Take with a full glass of water and do not lie down for at least 30 minutes after 5 documented as of this encounter Discharge Disposition Disposition Code Departure Means Destination Home or Self Care documented in this encounter Plan of Treatment Upcoming Encounters Date Type Department Care Team (Late st Contact Info) Description 01/17/2025 9:45 AM EDT Office Visit Adult Medicine [address] [phone] Paty Nguyen PA [address] [place] [address] 09/15/2025 2:30 PM EST Office Visit [address] [place] [address] Inderjit Paez MD [address] [facility] [address] [place] [address] documented as of this encounter Procedures Procedure Name Priority Date/Time Associated Diagnosis Comments MR ABDOMEN WO AND W CONTRAST Routine 11/15/2024 10:11 AM EST Left kidney mass documented in this encounter Results * MR Abdomen wo and w Contrast (11/15/2024 10:11 AM EST) Anatomical Region Laterality Modality Body Magnetic Resonan ce 11/15/2024 7:36 PM EST Impressions 11/16/2024 1:50 PM EST Bilateral renal cysts. ??No suspicious renal lesion. Hepatomegaly and steatosis. POS [id number] -------- FINAL REPORT -------- Dictated By: Gisell Erickson Dictated Date: 11/15/2024 19:36 ET Assigned Physician: Gisell Erickson Reviewed and Electronically Signed By: Gisell Erickson Signed Date: 11/16/2024 13:50 ET Workstation ID: [id number] Transcribed By: Self Edit Transcribed Date: 11/15/2024 [...] opposed phase imaging from steatosis. 0.7 cm M1obvcsabxlyr and T2 hyperintense lesion in the anterior [...] suspicious renal lesion. Hepatomegaly and steatosis. POS [id number] -------- FINAL REPORT -------- Dictated By: Gisell Erickson Dictated Date: 11/15/2024 19:36 ET Assigned Physician: Gisell Erickson Reviewed and Electronically Signed By: Gisell Erickson Signed Date: 11/16/2024 13:50 ET Workstation ID: [id number] Transcribed By: Self Edit Transcribed Date: 11/15/2024 20:01 ET Jak Hinojosa [place] [facility] [place] Final Result documented in this encounter Visit Diagnoses Diagnosis Left kidney mass Unspecified disorder of kidney and ureter documented in this encounter Administered Medications Inactive Administered Medications - up to 3 most recent administrations Medication Order MAR Action Action Date Dose Rate Site gadoterate meglumine (CLARISCAN, DOTAREM) injection 20 mL 20 mL, intravenous, Once in imaging, Starting on 11/15/24 at 1011, For 1 dose Given 11/15/2024 10:11 AM EST 20 mL documented in this encounter Orders Medications Ordered That Leland ht Not Have Been Administered Count Last Ordered Date First Ordered Date gadoterate meglumine (ARLENE CAN, DOTAREM) injection 20 mL 1 11/15/2024 documented in this encounter Care Teams Network Engineer Relationship Specialty Start Date End Date Jak Hinojosa MD [address] [place] [address] PCP - General Internal Medicine 10/04/14 documented as of this encounter
--- OUTSIDE RECORDS SUMMARY | 2024-12-06 15:52 | XMS_ITS | Clinical Summary ---
Author Organization [facility] Address [address] [place] [address] Phone Care Team Providers Care Statistics Teacher Name Role Phone Jak Hinojosa MD Primary Care Provider [phone] Allergies Active Allergy Reactions Criticality Noted Date Comments Azithromycin Nausea And Vomiting,Rash High 5 Abdominal pain. Levofloxacin Swelling Medium 07/23/2018 Naproxen Swelling Low 05/20/2023 face Penicillins Seizures High 08/03/2024 Medications benzonatate (TESSALON) 100 mg capsule Take 1 capsule (100 mg total) by mouth 3 (three) times a day if needed for cough. Do not crush or chew. Active fluticasone propionate (FLONASE) 50 mcg/actuation nasal spray : 2 Sprays by Each Nare route daily for 14 days Shake gently. Before first use, prime pump. After use, clean tip and replace cap. Active ibuprofen (ADVIL,MOTRIN) 600 mg tablet Take 1 Tablet by mouth 2 times daily for 7 days. Active albuterol 2.5 mg /3 mL (0.083 %) nebulizer solution Take 1 Vial by nebulization every 4 hours as needed for Wheezing for up to 30 days Active fluticasone propion-salmet Elijah (ADVAIR HFA) 115-21 mcg/actuation inhaler Inhale 2 puffs by mouth 2 (two) times a day. Rinse mouth with water after use to reduce aftertaste and incidence of candidiasis. Do not swallow. Active allopurinoL (ZYLOPRIM) 300 mg tablet Take 400 mg by mouth 1 (one) time each day. Active citalopram (CeleXA) 40 mg tablet Take 1 tablet (40 mg total) by mouth 1 (one) time each day. Active albuterol HFA (PROAIR HFA ; PROVENTIL HFA ; VENTOLIN HFA) 90 mcg/actuation inhaler Inhale 2 puffs by mouth every 6 (six) hours if needed for wheezing. Active LORazepam (ATIVAN) 0.5 mg tablet Take 1 tablet (0.5 mg total) by mouth every 6 (six) hours if needed for anxiety. Active acetaminophen (TYLENOL) 500 mg tablet Take 1 Tab by mouth every 6 hours as needed for Pain for up to 14 days. Active QUEtiapine (SEROquel) 50 mg tablet Take 1 tablet (50 mg total) by mouth at bedtime. Active clonazePAM (KlonoPIN) 0.5 mg tablet Take 1 tablet (0.5 mg total) by mouth 2 (two) times a day. Active zolpidem (AMBIEN) 10 mg tablet Take by mouth at bedtime as needed for sleep. Active cetirizine (ZyrTEC) 10 mg tablet Take 1 tablet (10 mg total) by mouth 1 (one) time each day. 90 tablet 1 09/05/20 24 025 Active hydroCHLOROthi azide (HYDRODIURIL) 25 mg tablet Take 1 tablet (25 mg total) by mouth 1 (one) time each day. 90 tablet 1 09/05/20 24 Active levothyroxine (SYNTHROID, LEVOTHROID) 75 mcg tablet Take 1 tablet (75 mcg total) by mouth 1 (one) time each day before breakfast. 30 each 2 09/05/20 24 Active lisinopriL (PRINIVIL,ZEST RIL) 10 mg tablet Take 1 tablet (10 mg total) by mouth 1 (one) time each day. 90 each 1 09/05/20 24 Active bisacodyL (DULCOLAX) 5 mg EC tablet Take 2 tablets by mouth right before beginning bowel prep. See instructions provided by the office 2 tablet 09/14/20 24 Active polyethylene glycol (Golytely) 236-22.74-6.74 -5.86 gram solution Take 4L by mouth once for one dose. May substitue any PEG. Starting at 6PM the night before your procedure drink 1 8oz glasses at your own pace until you complete half of the gallon. Finish 2nd half of the gallon 5 hours before your procedure. 4000 mL 09/14/20 24 Active predniSONE (DELTASONE) 2.5 mg tablet Take 1 tablet (2.5 mg total) by mouth 1 (one) time each day. 09/02/20 24 Active gabapentin (NEURONTIN) 100 mg capsule TAKE ONE CAPSULE BY MOUTH THREE TIMES A DAY FOR 15 DAYS 10/12/20 24 Active diclofenac (VOLTAREN) 1 % topical gel APPLY 4 GRAMS TOPICALLY FOUR TIMES A DAY TO BILATERAL KNEES 10/06/20 24 Active Lidocaine Pain Relief 4 % patch APPLY 1 PATCH TOPICALLY ONCE DAILY. DO NOT LEAVE PATCH ON FOR MORE THAN 12 HOURS AT A TIME 10/12/20 24 Active meclizine (ANTIVERT) 25 mg tablet Take 1 tablet (25 mg total) by mouth 3 (three) times a day if needed for dizziness. 06/02/20 24 Active doxycycline (ADOXA) 100 mg tablet Take 1 tablet (100 mg total) by mouth 2 (two) times a day. Take with a full glass of water and do not lie down for at least 30 minutes after 025 Discontinu ed(Therapy completed) omeprazole (PriLOSEC) [address] capsule Take 1 capsule (40 mg total) by mouth 1 (one) time each day. Do not crush or chew. 30 each 2 09/05/20 24 025 Active Problems Problem Noted Date Diagnosed Date Abdominal wall pain 11/16/2024 Arthralgia 11/16/2024 Carpal tunnel syndrome 11/16/2024 Chronic constipation 11/16/2024 Costochondritis 11/16/2024 Cyst of ovary 11/16/2024 Gastritis due to Helicobacter species 11/16/2024 Genital herpes simplex 11/16/2024 History of hysterectomy 11/16/2024 Low back pain 11/16/2024 Mass of uterine adnexa 11/16/2024 Morbid obesity 11/16/2024 Severe obesity 11/16/2024 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 2024 Overview (11/16/2024): PPD -12 mm 02/19/2012 Prolapse of vaginal vault after hysterectomy Synovial cyst of knee 11/16/2024 Tubular adenoma of colon 11/16/2024 Overview (11/16/2024): by colonoscopy 02/06 Venous thrombosis 11/16/2024 Morbid obesity with BMI of 50.0-59.9, adult 07/27 Cholecystitis 11/25/2021 Overview (08/03/2024): S/p laparscopic cholecystetomy 11/23/21 [facility] ([place]) Allergic rhinitis 01/30/2021 Prediabetes 03/30/2019 Gout 01/11/2019 Varicose veins with pain 09/27/2018 Hemorrhoids 10/23/2016 Overview (08/03/2024): s/p hemorrhoidectomy 02/06 at [facility] Fatty liver 10/22/2016 Overview (08/03/2024): Abdominal ultrasound 01/05;10/10 Fibromyalgia 12/24/2015 Migraine 11/28/2015 Hypothyroidism 08/13/2015 Depressive disorder 12/11/2014 Overview (08/16/2024): Depressive disorder, not elsewhere classified Asthma 11/19/2014 Colon polyp 11/19/2014 Overview (08/03/2024): Tubular adenoma on 02/06 at [facility]; repeat in 5 years GERD (gastroesophageal reflux disease) 5 Hypertension 11/19/2014 Obstructive sleep apnea 11/19/2014 Overview (08/03/2024): [facility] Home Polysomnogram: Date 12/29/2016; AHI 8, Unclassified apneas 0; Obstructive apneas 0; Central apneas 1; Mixed apneas 0; hypopneas 68; average oxygen saturation 96% (lowest 85% without saturations <88% for 5% or more of study) [facility] Polysomnogram treatment study. Date 12/13/2018. SE 68 % SM 75 %; spent 19 % of the study in REM. On CPAP @ 8; RDI 2.2 (AHI 2.2), Central apneas 1; Obstructive apneas 0; Mixed apneas 0; hypopneas 6; RERAs 0; and, average oxygen saturation was 95%. For the entire study, PLMs ~16. - Obstructive Sleep Apnea - mild; mostly hypopneas; without sleep related hypoventilation by 2018 home polysomnogram. - 12/13/2018 Pre-study ESS 6. 3/4 RLS symptoms. - CPAP @ 8 corrective. Breast pain 12/02/2011 Bulimia nervosa 12/04/2010 Plantar fasciitis 01/19/2008 Encounters Date Type Department Care Team Description 11/21/2024 9:44 AM EST - 11/21/2024 11:59 PM EST Hospital Encounter Radiology Department - [address] [phone] Encounter for well woman exam with routine gynecological exam; Screening breast examination Discharge Disposition: Home or Self Care 11/21/2024 Telephone Adult Medicine [address] [phone] Jak Hinojosa MD Results 11/17/2024 11:15 AM EST Office Visit Obstetrics & Gynecology - [address] [phone] Martha Garcia CNM Encounter for well woman exam with routine gynecological exam (Primary Dx); Screening breast examination; Renal cyst; Screen for STD (sexually transmitted disease) 11/15/2024 8:39 AM EST - 11/15/2024 11:59 PM EST Hospital Encounter Radiology Department - [address] [phone] Left kidney mass Discharge Disposition: Home or Self Care 11/07/2024 1:30 PM EST Office Visit Adult Medicine [address] [phone] Jak Hinojosa MD Left kidney mass (Primary Dx); Morbid obesity with BMI of 45.0-49.9, adult (CMS/HCC); Low back pain without sciatica, unspecified back pain laterality, unspecified chronicity 10/25/2024 8:24 AM EST - 10/25/2024 11:59 PM EST Hospital Encounter [facility] Ultrasound [address] [place] [address] RUQ pain Discharge Disposition: Home or Self Care 10/13/2024 12:05 PM EST - 10/13/2024 11:59 PM EST Hospital Encounter Walk-In Clinic XRAY [facility] [address] [place] [address] Acute pain of left knee Discharge Disposition: Home or Self Care 10/13/2024 11:00 AM EST Office Visit Walk-In [place] [address] [place] [phone] Franklyn Leone PA Acute pain of left knee (Primary Dx) 10/12/2024 Nurse Triage Adult Medicine [address] [phone] Jak Hinojosa MD Hospital Follow-up 10/07/2024 10:00 AM EST Ancillary Procedure [facility] [address] [place] [address] Palpitations 09/28/2024 3:34 PM EST Anesthesia Event [facility] Endoscopy [address] [place] [address] Saroj Moore DO 09/28/2024 2:02 PM EST - 09/28/2024 11:59 PM EST Hospital Encounter [facility] Endoscopy [address] [place] [address] Kai Nj MD McAdams, Megan, KANG Family hx of colon cancer; GERD (gastroesophageal reflux disease); RUQ pain Discharge Disposition: Home or Self Care 09/27/2024 Telephone Gastroenterology [facility] [address] [facility] [address] [place] [address] Kai Nj MD SPECIAL PROCEDURE 09/14/2024 2:30 PM EST Office Visit Pulmonolgy [facility] 175 [facility] [address] [place] [phone] Inderjit Paez MD Mild persistent asthma, unspecified whether complicated (Primary Dx); Obstructive sleep apnea 09/14/2024 Telephone Vascular Surgery [facility] [address] [facility] [address] [place] [phone] Palma Rodriguez PA DME REQ 09/13/2024 10:30 AM EST Consult Gastroenterology [facility] [address] [facility] [address] [facility] [address] [place] [phone] Kai Nj MD RUQ pain (Primary Dx) 09/06/2024 3:00 PM EST Office Visit Adult [address] [phone] Paty Nguyen PA Hypertension, unspecified type (Primary Dx); Hypothyroidism, unspecified type; Gastroesophageal reflux disease, unspecified whether esophagitis present; Palpitations 09/05/2024 1:30 PM EST Office Visit Adult Medicine [address] [phone] Jak Hinojosa MD Flank pain (Primary Dx); Blurred vision; Primary hypertension; Chronic gout without tophus, unspecified cause, unspecified site; Prediabetes; Fibromyalgia from Last 3 Months Immunizations Name Administration Dates Next Due Influenza Quadravalent, MDCK , 0.5ml, preservative free (Flucelvax) 6mo and older 09/16/2023,09/19/2022,09/23/2021,2018 Influenza Quadravalent, MDCK , 0.5ml, with preservative (Flucelvax) 6mo and older 07/12/2018 Influenza Quadrivalent, 0.5m l, preservative free (Fluarix; FluLaval; Fluzone) ages 6mo and older (Afluria) 3yo and older 08/28/2020,10/15/2015 Influenza Whole 11/02/2006 Influenza trivalent, 0.5mL, preservative free (Fluarix; FluLaval; Fluzone) ages 6mo and older (Afluria) 3 years and older 08/30/2024 Influenza trivalent, with preservative (Fluzone; Afluria) 6mo and older 08/28/2020,10/15/2015,08/14/2014,2012,08/19/2010,11/02/2006 Influenza, Unspecified 11/02/2006 Td Tetanus diptheria (Tdvax) 7yo and older 09/23/2021 Tdap Tetanus diptheria acell ular pertussis (Boostrix; Adacel) 7yo and older 11/27/2009 Surgical History Surgery Date Site/Laterality Comments HYSTERECTOMY PROCEDURE: HISTORICAL HYSTERECTOMY APPENDECTOMY PROCEDURE: IL APPENDECTOMY OTHER SURGICAL HISTORY PROCEDURE: ---- HEMORRHOIDS ---- CARPAL TUNNEL RELEASE PROCEDURE: HISTORICAL CARPAL TUNNEL REL; COMMENT: trigger finger release and CTS OTHER SURGICAL HISTORY PROCEDURE: IL TENOLYSIS EXTENSOR TENDON HAND/FINGER EACH COLONOSCOPY 11/12/2018 PROCEDURE: HISTORICAL COLONOSCOPY; COMMENT: negative CHOLECYSTECTOMY PROCEDURE: HISTORICAL CHOLECYSTECTOMY OTHER SURGICAL HISTORY PROCEDURE: HISTORY OTHER; COMMENT: oophrectomy, unilateral Medical History Medical History Date Comments Hypertension 11/19/2014 DX:Hypertension Asthma 11/19/2014 DX:Asthma GERD (gastroesophageal reflu x disease) 11/19/2014 DX:GERD (gastroesophageal re flux disease) Colon polyp 11/19/2014, 2022 DX:Colon polyp; COMMENT: Tubular adenoma 02/06; repeat 5 yrs Morbid obesity (CMS/HCC) 11/19/2014 DX:Morb id obesity (HCC) Migraine 11/28/2015 DX:Migraine Depression DX:Depression Fibromyalgia DX:Fibromyalgia Sleep apnea DX:Sleep apnea Chest pain Hypothyroid Family History Medical History Relation Name Comments Colon cancer Brother Arthritis Father Other: unknown Father Arthritis Mother dx'd age 25 Breast cancer Mother dx'd age 25 Colon cancer Mother dx'd age 25 60s Breast cancer Mother's side 3 cousins, al l maternal Breast cancer Other m. aunts x 3 Ovarian cancer Neg Hx Uterine cancer Neg Hx Relation Name Status Comments Brother Father Mother dx'd age 25 Mother's side Other m. aunts x 3 Alive Social History Tobacco Use Types Packs/Day Years [...] Orientation Straight 09/28/2024 8: 12 AM EST Obstetrics History Para Term AB IAB SAB Ectopic Multiple Livin g Live Births 6 6 5 1 5 6 Date Outcome GA Total Labor Labor/2nd/3rd Weight Sex Type Anes PTL Yara A1 A5 Name Clin 1979 Term Onel Jung Delivery Location:[facility] Comments:Uncomplicated 1980 Term F Aguila stoen Juliss a Delivery Location:[facility] Comments:Uncompl 1982 Term Onel Galindo Delivery Location:[facility] Comments:asthma attack s requiring hospitalization 1983 25w 0d F Decea sed Vaness a Delivery Location:[facility] Comments:Born early, l ived 22 days 1984 Term F Aguila Mclean Delivery Location:[facility] Comments:uncompl 1985 Term Onel Jung Delivery Location:[facility] Comments:uncomplicated Last Filed Vital Signs Vital Sign Reading Time Taken Comments Blood Pressure 133/85 11/17/2024 10:38 AM EST Pulse 93 11/17/2024 10:38 AM EST Temperature 36.2 ??C (97.2 ??F) 11/07/2024 1:04 PM ES T Respiratory Rate 14 11/07/2024 1:04 PM EST Oxygen Saturation 98% 11/07/2024 1:04 PM EST Inhaled Oxygen Concentration - - Weight 111 kg (244 lb) 11/17/2024 10:38 AM EST Height 149.9 cm (4' 11 ) 11/17/2024 10:38 AM EST Body Mass Index 49.28 11/17/2024 10:38 AM EST Plan of Treatment Upcoming Encounters Date Type Department Care Team (Late st Contact Info) Description 01/17/2025 9:45 AM EDT Office Visit Adult Medicine [address] [phone] Paty Nguyen PA [address] [place] [phone] 09/15/2025 2:30 PM EST Office Visit Pulmonolgy - [place] [address] [facility] [address] [place] [address] Inderjit Paez MD [address] [facility] [address] [place] [address] Health Maintenance Due Date Last Done Comments Pneumococcal Vaccine: 50+ Years (1 of 2 - PCV) 1982 Pneumococcal Vaccine: Pediatrics (0 to 5 Years) and At-Risk Patients (6 to 64 Years) (1 of 2 - PCV) 1982 Cervical Cancer Screening: Pap Smear 1984 Zoster Vaccines (1 of 2) 2013 Depression Screening 10/04/2022 12/12/2020 Social Influencers of Health Screening 10/04/2022 RSV Immunization Patients 60+ Years Old (1 - Risk 60-74 years 1-dose series) 2023 COVID-19 Vaccine ( season) 2024 Hypertension/CHF/CAD Annual BMP Blood Test 09/05/2025 09/05/2024, 06/03/2024, 06/03/2024 Cholesterol Screening (Lipid Panel) 09/23/2026 09/23/2021 Breast Cancer Screening 11/21/2026 11/21/2024, 12/25 DTaP,Tdap,and Td Vaccines (3 - Td or Tdap) 09/23/2031 09/23/2021, 11/27/2009 Colorectal Cancer Screening: Colonoscopy 09/28/2034 09/28/2024, 11/12/2018 HIV Screening Completed 08/28/2017 Hepatitis C Screening Completed 04/17/2022 Influenza Vaccine Completed 08/30/2024, , 09/19/2022, Additional history exists HIB Vaccines Aged Out No longer eligi ble based on patient's age to complete this topic HPV Vaccines Aged Out No longer eligi ble based on patient's age to complete this topic Hepatitis A Vaccines Aged Out No long er eligible based on patient's age to complete this topic Hepatitis B Vaccines Aged Out No long er eligible based on patient's age to complete this topic IPV Vaccines Aged Out No longer eligi ble based on patient's age to complete this topic MMR Vaccines Aged Out No longer eligi ble based on patient's age to complete this topic Meningococcal ACWY Vaccine Aged Out N o longer eligible based on patient's age to complete this topic Meningococcal B Vacine Aged Out No lo nger eligible based on patient's age to complete this topic RSV Immunization Patients Under 20 months Aged Out No longer eligible based on patient's age to complete this topic Varicella Vaccines Aged Out No longer eligible based on patient's age to complete this topic Procedures Procedure Name Priority Date/Time Associated Diagnosis Comments MG MAMMO DIGITAL SCREENING W RUBEN BILAT Routine 11/21/2024 10:11 AM EST Encounter for well woman exam with routine gynecological exam Screening breast examination CHLAMYDIA TRACHOMATIS AND NEISSERIA GONORRHOEAE PCR Routine 11/17/2024 11:09 AM EST Encounter for well woman exam with routine gynecological exam Screen for STD (sexually transmitted disease) MR ABDOMEN WO AND W CONTRAST Routine 11/15/2024 10:11 AM EST Left kidney mass US ABDOMEN LIMITED Routine 10/25/2024 9: 02 AM EST RUQ pain XR KNEE 4+ VIEWS LEFT STAT 10/13/2024 12:17 PM EST Acute pain of left knee CARDIAC HOLTER MONITOR (REPORT GENERATED IN HOUSE) Routine 10/07/2024 9:48 AM EST Palpitations COLONOSCOPY Routine 09/28/2024 3:57 PM EST Family hx of colon cancer GERD (gastroesophageal reflux disease) RUQ pain EGD Routine 09/28/2024 3:57 PM EST Family hx of colon cancer GERD (gastroesophageal reflux disease) RUQ pain TISSUE EXAM Routine 09/28/2024 3:52 PM EST Family hx of colon cancer GERD (gastroesophageal reflux disease) RUQ pain EXTERNAL CLINICAL LAB 09/22/2024 EXTERNAL XRAY REPORT 09/21/2024 COMPLETE BLOOD COUNT Routine 09/06/2024 4:24 PM EST Palpitations THYROID STIMULATING HORMONE WITH REFLEX TO FREE T4 AND FREE T3 Routine 09/06/2024 4:24 PM EST Hypothyroidism, unspecified type Palpitations BASIC METABOLIC PANEL Routine 09/05/2024 2:26 PM EST Blurred vision HEMOGLOBIN A1C Routine 09/05/2024 2:26 PM EST Blurred vision HEPATITIS C SCREENING Routine 04/17/2022 LIPID PANEL Routine 09/23/2021 HIV SCREENING Routine 08/28/2017 from Last 3 Months or Most Recently Relevant to Health Maintenance Results * MG Mammo Digital Screening w Ruben bilat (11/21/2024 10:11 AM EST) Anatomical Region Laterality Modality Breast Bilateral Mammography 11/21/2024 7:28 PM EST Impressions 11/21/2024 7:31 PM EST 1. No mammographic evidence of malignancy 2. Scattered fibroglandular tissue BI-RADS CATEGORY: 2 - BENIGN RECOMMENDATION: Screening bilateral mammogram is recommended in 1 year. Mammo Location: [facility], [address] [place] [address], [id number], . -------- FINAL REPORT -------- Dictated By: Sabiha Conroy Dictated Date: 11/21/2024 19:28 ET Assigned Physician: Sabiha Conroy Reviewed and Electronically Signed By: Sabiha Conroy Signed Date: 11/21/2024 19:31 ET Workstation ID: [id number] Transcribed By: Self Edit Transcribed Date: 11/21/2024 [...] is recommended in 1 year. Mammo Location: [facility], [address] [place] [address], [id number], . -------- FINAL REPORT -------- Dictated By: Sabiha Conroy Dictated Date: 11/21/2024 19:28 ET Assigned Physician: Sabiha Conroy Reviewed and Electronically Signed By: Sabiha Conroy Signed Date: 11/21/2024 19:31 ET Workstation ID: [id number] Transcribed By: Self Edit Transcribed Date: 11/21/2024 19:28 ET Martha Garcia CNM IMG BI PROCEDURES Final Resul t * Chlamydia trachomatis and Neisseria gonorrhoeae molecular study (11/17/2024 11:09 AM EST) Neisseria gonorrhoeae PCR Negative Negative LAB MOLECULAR DIAGNOSTICS METHOD 11/18/2024 9:43 AM EST [facility] Chlamydia trachomatis PCR Negative Negative LAB MOLECULAR DIAGNOSTICS METHOD 11/18/2024 9:43 AM EST [facility] Swab Cervix uteri structure / Unknown Non-blood Collection / Unknown 11/17/2024 11:09 AM EST 11/17/2024 4:12 PM EST Martha PERSAUD LAB MICROBIOLOGY - GENERAL OR DERABLES Final Result [facility] [address] [place] [address], [place] [phone] * MR Abdomen wo and w Contrast (11/15/2024 10:11 AM EST) Anatomical Region Laterality Modality Body Magnetic Resonan ce 11/15/2024 7:36 PM EST Impressions 11/16/2024 1:50 PM EST Bilateral renal cysts. ??No suspicious renal lesion. Hepatomegaly and steatosis. POS [id number] -------- FINAL REPORT -------- Dictated By: Gisell Erickson Dictated Date: 11/15/2024 19:36 ET Assigned Physician: Gisell Erickson Reviewed and Electronically Signed By: Gisell Erickson Signed Date: 11/16/2024 13:50 ET Workstation ID: [id number] Transcribed By: Self Edit Transcribed Date: 11/15/2024 [...] opposed phase imaging from steatosis. 0.7 cm [id number] and T2 hyperintense lesion in the anterior [...] suspicious renal lesion. Hepatomegaly and steatosis. POS [id number] -------- FINAL REPORT -------- Dictated By: Gisell Erickson Dictated Date: 11/15/2024 19:36 ET Assigned Physician: Gisell Erickson Reviewed and Electronically Signed By: Giesll Erickson Signed Date: 11/16/2024 13:50 ET Workstation ID: [id number] Transcribed By: Self Edit Transcribed Date: 11/15/2024 20:01 ET us Jak Hinojosa MD IMG MRI PROCEDURES Final Result * US Abdomen Limited (10/25/2024 9:02 AM EST) Anatomical Region Laterality Modality Body Ultrasound 11/01/2024 9:54 AM EST Impressions 11/01/2024 9:59 AM EST Increased hepatic echogenicity can be seen with fatty change. No suspicious focal liver lesion. No intrahepatic biliary dilation. Previous cholecystectomy. The common duct measures 1.0 cm which is top normal following cholecystectomy. No definite choledocholithiasis demonstrated No ascites -------- FINAL REPORT -------- Dictated By: Bandar Miranda Dictated Date: 11/01/2024 09:54 ET Assigned Physician: Bandar Miranda Reviewed and Electronically Signed By: Bandar Miranda Signed Date: 11/01/2024 09:59 ET Workstation ID: [id number] Transcribed By: Self Edit Transcribed Date: 11/01/2024 09:54 ET Narrative 11/01/2024 9:59 AM EST EXAMINATION: ABDOMEN ULTRASOUND, LIMITED CLINICAL INFORMATION: Recurrent right upper quadrant pain. Symptoms for 2 years. Previous cholecystectomy for gallstones. Recurrent right upper quadrant pain COMPARISON: None. TECHNIQUE: Ultrasound of the right upper quadrant FINDINGS: QUALITY: Portions the pancreas were obscured. PANCREAS: The pancreatic head, neck and portions of the pancreatic body were visualized without a definite abnormality. Portions of the pancreatic tail were obscured. ABDOMINAL AORTA/IVC: The visualized IVC appears within normal limits. LIVER: The right lobe of the liver measures 18.2 cm. This is approximately one standard deviation above the mean expected. There is diffuse mild to moderate increased hepatic echogenicity. The portal tracts are slightly indistinct. The level of the diaphragm was able to be visualized. No suspicious focal liver lesion. The liver contour appears smooth. BILIARY: Previous cholecystectomy. COMMON BILE DUCT: The common duct measures 1.0 cm which is top normal following cholecystectomy. ??No definite choledocholithiasis GALLBLADDER TENDERNESS: No tenderness to transducer pressure over the expected region of the gallbladder. KIDNEYS: Right renal length: ??10.3 cm in greatest length Left renal length: ??Not examined. There is no dilation of the intrarenal collecting system in the right kidney. There is no suspicious focal lesion demonstrated in the right kidney. ??There is an approximately 1.2 cm parapelvic cysts in the interpolar right kidney (Bosniak 1) There is no shadowing calculus demonstrated ??in the right kidney. FLUID: No intraperitoneal fluid demonstrated in the upper abdomen Procedure Note Bandar Miranda MD - 11/01/2024 EXAMINATION: ABDOMEN ULTRASOUND, LIMITED CLINICAL INFORMATION: Recurrent right upper quadrant pain. Symptoms for 2 years. Previouscholecystectomy for gallstones. Recurrent right upper quadrant pain COMPARISON: None. TECHNIQUE: Ultrasound of the right upper quadrant FINDINGS: QUALITY: Portions the pancreas were obscured. PANCREAS: The pancreatic head, neck and portions of the pancreatic bodywere visualized without a definite abnormality. Portions of the pancreatictail were obscured. ABDOMINAL AORTA/IVC: The visualized IVC appears within normal limits. LIVER: The right lobe of the liver measures 18.2 cm. This is approximatelyone standard deviation above the mean expected. There is diffuse mild to moderate increased hepatic echogenicity. Theportal tracts are slightly indistinct. The level of the diaphragm was ableto be visualized. No suspicious focal liver lesion. The liver contour appears smooth. BILIARY: Previous cholecystectomy. COMMON BILE DUCT: The common duct measures 1.0 cm which is top normalfollowing cholecystectomy. No definite choledocholithiasis GALLBLADDER TENDERNESS: No tenderness to transducer pressure over theexpected region of the gallbladder. KIDNEYS: Right renal length: 10.3 cm in greatest length Left renal length: Not examined. There is no dilation of the intrarenal collecting system in the rightkidney. There is no suspicious focal lesion demonstrated in the right kidney.There is an approximately 1.2 cm parapelvic cysts in the interpolar rightkidney (Bosniak 1) There is no shadowing calculus demonstrated in the right kidney. FLUID: No intraperitoneal fluid demonstrated in the upper abdomen IMPRESSION: Increased hepatic echogenicity can be seen with fatty change. No suspicious focal liver lesion. No intrahepatic biliary dilation. Previous cholecystectomy. The commonduct measures 1.0 cm which is top normal following cholecystectomy. No definite choledocholithiasis demonstrated No ascites -------- FINAL REPORT -------- Dictated By: Bandar Miranda Dictated Date: 11/01/2024 09:54 ET Assigned Physician: Bandar Miranda Reviewed and Electronically Signed By: Bandar Miranda Signed Date: 11/01/2024 09:59 ET Workstation ID: [id number] Transcribed By: Self Edit Transcribed Date: 11/01/2024 09:54 ET us Kai Nj MD IMG US PROCEDURES Final Result * XR Knee 4+ Views Left (10/13/2024 12:17 PM EST) Anatomical Region Laterality Modality Lower Extremities, Knee Left Radiogra phic Imaging 10/13/2024 12:1 9 PM EST Impressions 10/13/2024 12:21 PM EST No acute findings. ??Degenerative changes most advanced in the medial compartment. -------- FINAL REPORT -------- Dictated By: Noah Awad Dictated Date: 10/13/2024 12:19 ET Assigned Physician: Noah Awad Reviewed and Electronically Signed By: Noah Awad Signed Date: 10/13/2024 12:21 ET Workstation ID: [id number] Transcribed By: Self Edit Transcribed Date: 10/13/2024 12:19 ET Narrative 10/13/2024 12:21 PM EST History: Medial left knee pain after falling. Left knee, 6 views: There is no evidence of fracture or dislocation. ??There is no joint effusion. ??There is moderate medial compartment degeneration and minimal patellofemoral compartment degeneration. ??The lateral compartment is well preserved. ??Soft tissues are unremarkable. Procedure Note Noah Awad MD - 10/13/2024 History: Medial left knee pain after falling. Left knee, 6 views: There is no evidence of fracture or dislocation.There is no joint effusion. There is moderate medial compartmentdegeneration and minimal patellofemoral compartment degeneration. Thelateral compartment is well preserved. Soft tissues are unremarkable. IMPRESSION: No acute findings. Degenerative changes most advanced in the medialcompartment. -------- FINAL REPORT -------- Dictated By: Noah Awad Dictated Date: 10/13/2024 12:19 ET Assigned Physician: Noah Awad Reviewed and Electronically Signed By: Noah Awad Signed Date: 10/13/2024 12:21 ET Workstation ID: [id number] Transcribed By: Self Edit Transcribed Date: 10/13/2024 12:19 ET us Franklyn JOSE IMG XR PROCEDURES Final Re sult * CARDIAC HOLTER MONITOR (REPORT GENERATED IN HOUSE) (10/07/2024 9:48 AM EST) Anatomical Region Laterality Modality Cardiac Diagnost ic Narrative 10/19/2024 9:25 PM EST [facility] DIAGNOSTIC TESTING DEPARTMENT [address] [place] [address], [id number], [place] [address] TEL: FAX: Type of test: ??48 hour Holter Monitor Date of test: 10/07/24 Ordering provider: DAMON Jovel Reason for Test: Palpitations Findings: 1: The predominant rhythm was Normal Sinus Rhythm with brief periods of Sinus Tachycardia. 2: Heart rate range was 51- 164 bpm with an average of 84 bpm. Total time in Sinus Tachycardia was 6 hrs 50 mins. 3: Rare PACs. One PVC. 4: No pauses noted. Longest R-R 1.4 sec. 5: Diary returned with no entries. Impression: Normal sinus rhythm with periods of sinus tachycardia us Paty JOSE CARDIAC SERVICES PRO CEDURES Final Result * COLONOSCOPY Anesthesia - MAC; [facility] ENDOSCOPY (09/28/2024 3:57 PM EST) Anatomical Region Laterality Modality Other 09/28/2024 3:26 PM EST Impressions 09/28/2024 4:00 PM EST - Diverticulosis in the sigmoid colon. ? - Internal hemorrhoids. ? - One 4 mm polyp in the descending colon, removed with ? a cold snare. Resected and retrieved. Recommendation: ?- Repeat colonoscopy in 5 years for surveillance. ? - Await pathology results. ? - Use fiber, for example Citrucel, Fibercon, Konsyl or ? Metamucil. Narrative 09/28/2024 4:00 PM EST [facility] GI Patient Name: Shweta Alarcon Procedure Date: 09/28/2024 3:26 PM Date of : 1965 Age: 59 Gender: Female Note Status: Finalized Attending MD: Kai Nj MD, Procedure Date No Time: 09/28/2024 Procedure: ? Colonoscopy Indications: ? High risk colon cancer surveillance: Personal history ? of colonic polyps Providers: ? Kai Nj MD Referring MD: ?Kai Nj MD Medicines: ? Propofol per Anesthesia Complications: ? No immediate complications. Estimated Blood Loss: ? Estimated blood loss was minimal. Procedure: ? Pre-Anesthesia Assessment: ? - ASA Grade Assessment: II - A patient with mild ? systemic disease. ? After I obtained informed consent, the scope was ? passed under direct vision. Throughout the procedure, ? the patient's blood pressure, pulse, and oxygen ? saturations were monitored continuously.The Olympus ? Pediatric Colonoscope was introduced through the anus ? and advanced to the cecum, identified by appendiceal ? orifice and ileocecal valve. The colonoscopy was ? performed without difficulty. The patient tolerated ? the procedure well. The quality of the bowel ? preparation was excellent. Findings: ?The perianal and digital rectal examinations were ? normal. ? A few diverticula were found in the sigmoid colon. ? Internal hemorrhoids were found during endoscopy. The ? hemorrhoids were Grade I (internal hemorrhoids that do ? not prolapse). ? A 4 mm polyp was found in the descending colon. The ? polyp was sessile. The polyp was removed with a cold ? snare. Resection and retrieval were complete. ? Estimated blood loss was minimal. Procedure Code(s): ? --- Professional --- ? 08602, Colonoscopy, flexible; with removal of ? tumor(s), polyp(s), or other lesion(s) by snare ? technique Diagnosis Code(s): ? --- Professional --- ? Z86.010, Personal history of colonic polyps ? K64.0, First degree hemorrhoids ? D12.4, Benign neoplasm of descending colon ? K57.30, Diverticulosis of large intestine without ? perforation or abscess without bleeding CPT copyright 2020 [employer]. All rights reserved. The codes documented in this report are preliminary and upon physician coder review may be revised to meet current compliance requirements. Kai Nj MD 09/28/2024 4:00:13 PM This report has been signed electronically.Kai Nj MD Number of Addenda: 0 Note Initiated On: 09/28/2024 3:26 PM Scope In: Scope Out: ? Endoscopy Department at [facility] - [address] [place] [address], ? [place] [address] Procedure Note Kai Nj MD - 09/28/2024 [facility] GI Patient Name: Shweta Alarcon Procedure Date: 09/28/2024 3:26 PM Date of : 1965 Age: 59 Gender: Female Note Status: Finalized Attending MD: Kai Nj MD, Procedure Date No Time: 09/28/2024 Procedure: Colonoscopy Indications: High risk colon cancer surveillance: Personalhistory of colonic polyps Providers: Kai Nj MD Referring MD: Kai Nj MD Medicines: Propofol per Anesthesia Complications: No immediate complications. Estimated Blood Loss: Estimated blood loss was minimal. Procedure: Pre-Anesthesia Assessment: - ASA Grade Assessment: II - A patient with mild systemic disease. After I obtained informed consent, the scope was passed under direct vision. Throughout theprocedure, the patient's blood pressure, pulse, and oxygen saturations were monitored continuously.The Olympus Pediatric Colonoscope was introduced through theanus and advanced to the cecum, identified byappendiceal orifice and ileocecal valve. The colonoscopy was performed without difficulty. The patient tolerated the procedure well. The quality of the bowel preparation was excellent. Findings: The perianal and digital rectal examinations were normal. A few diverticula were found in the sigmoidcolon. Internal hemorrhoids were found during endoscopy.The hemorrhoids were Grade I (internal hemorrhoids thatdo not prolapse). A 4 mm polyp was found in the descending colon. The polyp was sessile. The polyp was removed with acold snare. Resection and retrieval were complete. Estimated blood loss was minimal. Procedure Code(s): --- Professional --- 41769, Colonoscopy, flexible; with removal of tumor(s), polyp(s), or other lesion(s) by snare technique Diagnosis Code(s): --- Professional --- Z86.010, Personal history of colonic polyps K64.0, First degree hemorrhoids D12.4, Benign neoplasm of descending colon K57.30, Diverticulosis of large intestine without perforation or abscess without bleeding CPT copyright 2020 [employer]. All rights reserved. The codes documented in this report are preliminary and upon physician coder reviewmay be revised to meet current compliance requirements. Kai Nj MD 09/28/2024 4:00:13 PM This report has been signed electronically.Kai Nj MD Number of Addenda: 0 Note Initiated On: 09/28/2024 3:26 PM Scope In: Scope Out: Endoscopy Department at [facility] - [address] [place] [id number] IMPRESSION: - Diverticulosis in the sigmoid colon. - Internal hemorrhoids. - One 4 mm polyp in the descending colon, removedwith a cold snare. Resected and retrieved. Recommendation: - Repeat colonoscopy in 5 years for surveillance. - Await pathology results. - Use fiber, for example Citrucel, Fibercon, Konsylor Metamucil. us Kai Nj MD GI~PROCEDURE ORDERABLES Final Re sult * EGD Anesthesia - MAC; [facility] ENDOSCOPY (09/28/2024 3:57 PM EST) Anatomical Region Laterality Modality Other 09/28/2024 3:26 PM EST Impressions 09/28/2024 3:57 PM EST - Normal esophagus. ? - Normal stomach. ? - Normal examined duodenum. ? - No specimens collected. Recommendation: ?- Observe patient's clinical course. Narrative 09/28/2024 3:57 PM EST [facility] GI Patient Name: Shweta Alarcon Procedure Date: 09/28/2024 3:26 PM Date of : 1965 Age: 59 Gender: Female Note Status: Finalized Attending MD: Kai Nj MD, Procedure Date No Time: 09/28/2024 Procedure: ? Upper GI endoscopy Indications: ? Heartburn Providers: ? Kai Nj MD Referring MD: ?Kai Nj MD Medicines: ? Propofol per Anesthesia Complications: ? No immediate complications. Estimated Blood Loss: ? Estimated blood loss: none. Procedure: ? Pre-Anesthesia Assessment: ? - ASA Grade Assessment: II - A patient with mild ? systemic disease. ? After obtaining informed consent, the endoscope was ? passed under direct vision. Throughout the procedure, ? the patient's blood pressure, pulse, and oxygen ? saturations were monitored continuously.The Endoscope ? was introduced through the mouth, and advanced to the ? second part of duodenum. The upper GI endoscopy was ? accomplished without difficulty. The patient tolerated ? the procedure well. Findings: ?The esophagus was normal. ? The stomach was normal. ? The examined duodenum was normal. Procedure Code(s): ? --- Professional --- ? 56727, Esophagogastroduodenoscopy, flexible, ? transoral; diagnostic, including collection of ? specimen(s) by brushing or washing, when performed ? (separate procedure) Diagnosis Code(s): ? --- Professional --- ? R12, Heartburn CPT copyright 2020 [employer]. All rights reserved. The codes documented in this report are preliminary and upon physician coder review may be revised to meet current compliance requirements. Kai Nj MD 09/28/2024 3:57:35 PM This report has been signed electronically.Kai Nj MD Number of Addenda: 0 Note Initiated On: 09/28/2024 3:26 PM Scope In: Scope Out: ? Endoscopy Department at [address], ? [place] [address] Procedure Note Kai Nj MD - 09/28/2024 [facility] GI Patient Name: Shweta Alarcon Procedure Date: 09/28/2024 3:26 PM Date of : 1965 Age: 59 Gender: Female Note Status: Finalized Attending MD: Kai Nj MD, Procedure Date No Time: 09/28/2024 Procedure: Upper GI endoscopy Indications: Heartburn Providers: Kai Nj MD Referring MD: Kai Nj MD Medicines: Propofol per Anesthesia Complications: No immediate complications. Estimated Blood Loss: Estimated blood loss: none. Procedure: Pre-Anesthesia Assessment: - ASA Grade Assessment: II - A patient with mild systemic disease. After obtaining informed consent, the endoscope was passed under direct vision. Throughout theprocedure, the patient's blood pressure, pulse, and oxygen saturations were monitored continuously.TheEndoscope was introduced through the mouth, and advanced tothe second part of duodenum. The upper GI endoscopy was accomplished without difficulty. The patienttolerated the procedure well. Findings: The esophagus was normal. The stomach was normal. The examined duodenum was normal. Procedure Code(s): --- Professional --- 95120, Esophagogastroduodenoscopy, flexible, transoral; diagnostic, including collection of specimen(s) by brushing or washing, when performed (separate procedure) Diagnosis Code(s): --- Professional --- R12, Heartburn CPT copyright 2020 [employer]. All rights reserved. The codes documented in this report are preliminary and upon physician coder reviewmay be revised to meet current compliance requirements. Kai Nj MD 09/28/2024 3:57:35 PM This report has been signed electronically.Kai Nj MD Number of Addenda: 0 Note Initiated On: 09/28/2024 3:26 PM Scope In: Scope Out: Endoscopy Department at [address] [id number] IMPRESSION: - Normal esophagus. - Normal stomach. - Normal examined duodenum. - No specimens collected. Recommendation: - Observe patient's clinical course. Kai Nj MD GI~PROCEDURE ORDERABLES Final Re sult * Tissue exam (09/28/2024 3:52 PM EST) Final Diagnosis Descending Colon, polyp X 1: Tubular adenoma. 09/30/2024 10:36 AM [facility] Gross Description A. Large Intestine, Left/Descending Colon, polyp X 1: Labeled desc colon polyp x 1 . Received in formalin, is an approximately 0.4 cm, in greatest diameters, rubbery, santillan, polypoid tissue, which is inked black at the base, wrapped in paper and submitted in toto in one cassette, one piece, multiple levels. dvb/SL 09/30/2024 10:36 AM [facility] Disclaimer Unless otherwise specified, all tissue is 10% NB formalin fixed and paraffin embedded. 09/30/2024 10:36 AM [facility] Tissue Descending colon structure / Unknown 09/28/2024 3:52 PM EST 09/29/2024 9:15 AM EST Kai Nj MD LAB PATHOLOGY ORDERABLES Final R esult [facility] [address] [place] [address], * External clinical lab (09/22/2024) us Provider Onbase LAB BLOOD ORDERABLES Final Re sult * External Xray Report (09/21/2024) Anatomical Region Laterality Modality Radiographic Chanda ging us Provider Onbase IMG XR PROCEDURES Final Resul t * Thyroid stimulating hormone with reflex to free t4 and free t3 (09/06/2024 4:24 PM EST) TSH 1.74 0.40 - 4.00 mcIU/mL LAB CHEMISTRY METHOD 09/06/2024 6:56 PM EST [facility] Blood Venous blood specimen / Unknown Venipuncture / Unknown 09/06/2024 4:24 PM EST 09/06/2024 4:24 PM EST Paty JOSE LAB BLOOD ORDERABLES Fi nal Result [facility] [address] [place] [address], * (ABNORMAL) Complete blood count (09/06/2024 4:24 PM EST) [facility] WBC 9.2 4.8 - 10.8 K/mcL LAB HEMETOLOGY METHOD 09/06/2024 6:20 PM [facility] RBC 4.50 3.80 - 4.80 M/[facility] LAB HEMETOLOGY METHOD 09/06/2024 6:20 PM [facility] Hemoglobin 13.3 11.5 - 16.0 g/dL LAB HEMETOLOGY METHOD 09/06/2024 6:20 PM [facility] Hematocrit 41.9 35.0 - 47.0 % LAB HEMETOLOGY METHOD 09/06/2024 6:20 PM [facility] MCV 92.9 79.0 - 98.0 FL LAB HEMETOLOGY METHOD 09/06/2024 6:20 PM [facility] MCH 29.5 27.0 - 32.0 pcg LAB HEMETOLOGY METHOD 09/06/2024 6:20 PM [facility] MCHC 31.7(L) 32.0 - 37.0 g/dL LAB HEMETOLOGY METHOD 09/06/2024 6:20 PM [facility] RDW 13.4 11.0 - 15.0 % LAB HEMETOLOGY METHOD 09/06/2024 6:20 PM EST [facility] Platelets 275 130 - 400 K/mcL LAB HEMETOLOGY METHOD 09/06/2024 6:20 PM EST [facility] MPV 11.8(H) 7.0 - 11.0 FL LAB HEMETOLOGY METHOD 09/06/2024 6:20 PM EST [facility] NRBC 0.0 <1.0 % LAB HEMETOLOGY METHOD 09/06/2024 6:20 PM EST [facility] NRBC Absolute 0.00 <0.10 K/mcL LAB HEMETOLOGY METHOD 09/06/2024 6:20 PM EST [facility] Blood Venous blood specimen / Unknown Venipuncture / Unknown 09/06/2024 4:24 PM EST 09/06/2024 4:24 PM EST us Paty JOSE LAB BLOOD ORDERABLES Fi nal Result [facility] [address] [place] [address], * Hemoglobin A1c (09/05/2024 2:26 PM EST) Hemoglobin A1C 5.8 <6.5 % LAB CHEMISTRY METHOD 09/05/2024 8:48 PM EST [facility] Mean Bld Glu Estim. 120 mg/dL LAB CHEMISTRY METHOD 09/05/2024 8:48 PM EST [facility] Blood Venous blood specimen / Unknown Venipuncture / Unknown 09/05/2024 2:26 PM EST 09/05/2024 2:26 PM EST us Jak Hinojosa MD LAB BLOOD ORDERABLES Final Resu lt [facility] [address] [place] [address], * Basic metabolic panel (09/05/2024 2:26 PM EST) Sodium 140 133 - 145 mmol/L LAB CHEMISTRY METHOD 09/05/2024 4:56 PM [facility] Potassium 4.7 3.5 - 5.5 mmol/L LAB CHEMISTRY METHOD 09/05/2024 4:56 PM [facility] Chloride 106 96 - 110 mmol/L LAB CHEMISTRY METHOD 09/05/2024 4:56 PM [facility] CO2 27 21 - 32 mmol/L LAB CHEMISTRY METHOD 09/05/2024 4:56 PM [facility] Anion Gap 7 3 - 11 LAB CHEMISTRY METHOD 09/05/2024 4:56 PM [facility] Glucose 88 70 - 100 mg/dL LAB CHEMISTRY METHOD 09/05/2024 4:56 PM [facility] BUN 21 5 - 25 mg/dL LAB CHEMISTRY METHOD 09/05/2024 4:56 PM [facility] Creatinine 1.06 0.50 - 1.10 mg/dL LAB CHEMISTRY METHOD 09/05/2024 4:56 PM [facility] eGFR 60 >=60 mL/min/1. 73m2 LAB CHEMISTRY METHOD 09/05/2024 4:56 PM [facility] Comment:Calculation based on the??Chronic Kidney Disease Epidemiology Collaboration (CKD-EPI) equation refit??without adjustment for race. BUN/Creatinine Ratio 19.8 LAB CHEMISTRY METHOD 09/05/2024 4:56 PM [facility] Calcium 10.1 8.5 - 10.5 mg/dL LAB CHEMISTRY METHOD 09/05/2024 4:56 PM [facility] Blood Venous blood specimen / Unknown Venipuncture / Unknown 09/05/2024 2:26 PM EST 09/05/2024 2:26 PM EST Jak Hinojosa MD LAB BLOOD ORDERABLES Final Resu lt [facility] [address] [place] [address], [place] [phone] * Hepatitis C Screening (04/17/2022) Hepatitis C Screening Abstracted Historical Provider HEALTH MAINTENANCE Final Result * (ABNORMAL) Lipid panel (09/23/2021) LDL/HDL Ratio 4 0 - 4 Triglycerides 158(A) 0 - 150 mg/dL Cholesterol 217(A) 0 - 200 mg/dL HDL 51 >=40 mg/dL LDL Cholesterol 135(A) 0 - 100 mg/dL Blood Venous blood specimen / Unknown Historical Provider LAB BLOOD ORDERABLES Conchis l Result * HIV Screening (08/28/2017) HIV Screening Abstracted Historical Provider HEALTH MAINTENANCE Final Result from Last 3 Months or Most Recently Relevant to Health Maintenance Insurance 09-[address] [place] [id number] [facility] [place] [address] Care Teams 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
[2024-12-06 17:06] LABS: Erythrocyte Sedimentation Rate 38 MM/HR (0-20)
[2024-12-06 17:24] LABS: Alanine Aminotransferase 20 U/L (0-31); Albumin Level 4.1 g/dL (3.5-5.0); Alkaline Phosphatase 89 U/L (39-117); Anion Gap 10 (12-20); Aspartate Amino Transferase 17 U/L (5-31); Bilirubin Total 0.3 mg/dL (0.0-1.0); Blood Urea Nitrogen 12 mg/dL (9-16); C Reactive Protein 0.77 mg/dL (< or = 0.50); Calcium 9.4 mg/dL (8.4-10.2); Carbon Dioxide 27 mmol/L (22-29); Chloride 109 mmol/L (96-108); Estimated Glomerular Filt Rate > 60; Glucose Random 79 mg/dL (60-115); Potassium 4.6 mmol/L (3.3-5.1); Sodium 141 mmol/L (135-145); Uric Acid 6.6 mg/dL (2.4-5.7)
== END 2024-12-06 14:00 | disposition home or self-care (01) ==
LOC: HO.LAB 13:59
PROVIDERS: PCP Internal Medicine; Visit Provider Student in an Organized Health Care Education/Training Program
DX: M1A.09X0 Idiopathic chronic gout, multiple sites, without tophus (tophi) (principal); Z79.52 Long term (current) use of systemic steroids; Z79.899 Other long term (current) drug therapy
CPT/HCPCS: 36415; 80053; 84550; 85025; 85652; 86140; 99212

== ENCOUNTER 2024-12-06 13:59 | Outpatient (AMB) | payer OTHER, SELFPAY ==
--- NOTE | 2024-12-06 14:06 | MHC.OFFVIS ---
Vital Signs 12/06/24 14:11 Height 4 ft 11 in Weight 248 lb 7.375 oz BMI 50.2 BP 130/82 Blood Pressure Location Rt brachial Position Sitting Pulse 72 Pulse Source Pulse Oximeter Pulse Oximetry (%) 98 Oxygen Delivery Method Room Air Intake Visit Reasons: follow up Intake Note: Patient presents for follow up. Allergies azithromycin [AZITHROMYCIN] Allergy (Unknown, Verified 12/06/24 14:10) UNKNOWN Penicillins [PENICILLINS] Allergy (Unknown, Verified 12/06/24 14:10) SEIZURE Medication List - Last Reconciled 12/06/24 by Emely Estes MD acetaminophen (Tylenol Extra Strength) 500 mg PO Q6H PRN albuterol sulfate 90 mcg/actuation (ProAir HFA) 2 puffs inhalation Q6H PRN albuterol sulfate mg inhalation allopurinol 500 mg (2.5 x 200 mg) PO DAILY cetirizine 10 mg PO DAILY citalopram 40 mg PO DAILY clonazepam 1 mg PO BEDTIME PRN diclofenac sodium 1% 4 grams topical QID fluticasone propion-salmeterol 115-21 mcg/actuation (Advair HFA) 2 puffs inhalation BID fluticasone propionate 50 mcg/actuation 2 sprays intranasal DAILY hydrochlorothiazide 25 mg PO DAILY leg brace (Knee Brace Large-XLarge) Apply to knee, especially right during prolong activities such as walking. levothyroxine 75 mcg PO DAILY lisinopril 10 mg PO DAILY omeprazole 20 mg PO DAILY prednisone 2.5 mg PO DAILY quetiapine 50 mg PO BEDTIME rizatriptan mg PO zolpidem 10 mg PO BEDTIME PRN HPI Comments Details: Patient is a 59-year-old morbidly obese female with non crystal proven gout, hypertension, hypothyroidism and polyarticular osteoarthritis who presents today for an acute sick visit for left knee pain Interval History: Patient last seen 09/21/2024 with me. At that time she was here for evaluation of instability involving her bilateral knees. Exam at that time was consistent with bilateral osteoarthritis and knee x-rays ordered after that confirmed this. Since then patient has been taking the new dose of allopurinol 200 mg twice a day however she has not been taking the prednisolone everyday out of concerns of weight gain. She has had 1 minor gout flare about 2 weeks ago involving her right great toe. Rheumatologic History: Non crystal proven gout Polyarticular osteoarthritis involving knees and hands Current Rheumatology Medication(s): Allopurinol 400 mg daily Prednisone 2.5mg [facility] Medical History (Updated 09/21/24 @ 13:23 by Emely Estes MD) Current use of steroid medication On allopurinol therapy Trigger finger of all digits of both hands Carpal tunnel syndrome on both sides Surgical History History of cholecystectomy History of hysterectomy History of appendectomy Social History Household Members Other:: lives alone Housing: Apartment Are you a primary child care assistant to a significant other at home: No Do you presently have visiting nurse or other home services: No 75 years or older and lives alone: No Alcohol intake: never Patient Tobacco Use Status: Never used Tobacco e-Cigarette/Vaping Use: Never Used service: No Current occupational status: disabled Cognitive needs: No Hearing needs: No Vision needs: Yes Review of Systems Const Details: Review of Systems Constitutional: Denies fever, chills, weight loss ENT: Denies vision changes, eye pain or eye redness, dental caries, dry mouth GI: Denies nausea, vomiting, diarrhea, abdominal pain, change in BM Pulm: Denies SOB, LOPEZ, hemoptysis, wheezing Cards: Denies chest pain, palpitations Skin: Denies Raynaud's, rash, nail changes, photosensitivity, PLASTIC SURGEON: Denies headaches, weakness, paresthesias, recurrent falls MSK: as per HPI All other systems reviewed and are unremarkable except noted above Physical Exam Vital Signs: Last Vital Signs Pulse 72 12/06/24 14:11 BP 130/82 12/06/24 14:11 Pulse Ox 98 12/06/24 14:11 Oxygen Delivery Method Room Air 12/06/24 14:11 BMI result Body Mass Index 50.2 Vital signs reviewed Physical Examination CONSTITUITIONAL Patient alert and cooperative. Well appearing and in no apparent painful distress. Morbidly obese HEENT Conjunctiva and sclera clear. ?Pupils equal round and reactive to light. ?No lymphadenopathy. ? CHEST/RESPIRATORY SYSTEM Normal respiratory effort and able to speak in complete sentences. ?Clear to auscultation bilaterally. ?No crackles, rales, rhonchi, wheezes heard. CARDIAC SYSTEM Regular rate and rhythm. ?S1 and S2 heard no murmurs. 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 No deformities noted. ?No synovitis noted to the MCPs, PIPs or DIPs. ?No tenderness to palpation of these joints. Wrists: ?Full range of motion at the wrists without pain. ?No tenderness to palpation or synovitis noted to the wrists. Elbows: Full range of motion without pain. No tenderness, weakness, swelling, increased warmth or erythema. Shoulders: Full range of motion without pain. No tenderness, weakness, swelling, increased warmth or erythema. Hips: Full range of motion without pain. Hip bursa: No tenderness to palpation Knees: ?Full range of motion. ?No tenderness, swelling, increased warmth or erythema.?No effusion or crepitations Ankles: Full range of motion. ?No tenderness, swelling, increased warmth or erythema.? Feet: ?Negative squeeze test. ?No redness or swelling noted to the right 1st MTP but mild tenderness to palpation elicited. Tender points:?No tenderness to palpation of the bilateral trapezius, supraspinatus, greater trochanters, anterior costochondral junctions, bilateral gluteal areas, bilateral suboccipital muscle insertions SKIN Skin intact without rashes. Results Reviewed Results Reviewed: Laboratory Tests 07/29/23 07/18/24 09:57 10:44 WBC 6.5 RBC 4.45 Hgb 13.3 Hct 41.2 Plt Count 221 ESR 37 H Sodium 144 Potassium 4.5 Chloride 110 H Carbon Dioxide 29 BUN 13 Creatinine 0.86 Uric Acid 4.5 7.9 H C-Reactive Protein 0.76 H Laboratory Tests 07/18/24 09/21/24 10:44 13:51 WBC 7.5 RBC 4.30 Hgb 12.9 Hct 39.8 Plt Count 245 ESR 29 H Sodium 144 Potassium 4.2 Chloride 109 H Carbon Dioxide 25 BUN 17 H Creatinine 0.90 Uric Acid 7.9 H 5.6 Calcium 9.5 9.2 Total Bilirubin 0.3 0.2 AST 12 21 ALT 16 23 Alkaline Phosphatase 80 90 C-Reactive Protein 0.76 H 0.69 H XR Bilateral Knees 08/2024 FINDINGS: RIGHT KNEE: Medial Compartment: Joint space narrowing and marginal osteophytes indicative of moderate osteoarthritis. Lateral Compartment: Marginal osteophytes without joint space narrowing indicative of mild osteoarthritis. Patellofemoral Compartment: Nonuniform joint space narrowing and marginal osteophytes indicative of vbbk-xg-kuyspujw osteoarthritis. No effusion. Possible loose body posteriorly LEFT KNEE: Medial Compartment: Joint space narrowing and marginal osteophytes indicative of ayoqwmey-ii-ybfizv osteoarthritis. Lateral Compartment: Marginal osteophytes indicative of mild osteoarthritis. Patellofemoral Compartment: Mild joint space narrowing and marginal osteophytes indicative of mild osteoarthritis. Small effusion. Assessment & Plan Assessment & Plan (1) Gout: Comment: Allopurinol therapy Colchicine - stopped due to diarrhea Code(s): M10.9 - Gout, unspecified Category: Medical Qualifiers: Gout site: multiple sites Gout etiology: idiopathic Chronicity: chronic Presence of tophus: without tophus Qualified Code(s): M1A.09X0 - Idiopathic chronic gout, multiple sites, without tophus (tophi) Plan: #Non crystal proven gout Patient last uric acid 5.6 we will need to recheck uric acid today. Patient likely had a mild gout flare on a background of not taking her Prednisone prophylaxis Increase allopurinol to 500 mg daily. Prednisolone 2.5 mg daily Plan - Allopurinol 500mg daily - Prednisone 2.5mg daily - Labs today: CBC, CMP, UA, ESR, CRP - RTC 4 weeks - Labs before visit: CBC, CMP, ESR, CRP (2) Osteoarthritis of knees, bilateral: Code(s): M17.0 - Bilateral primary osteoarthritis of knee Category: Medical Qualifiers: Osteoarthritis type: primary Qualified Code(s): M17.0 - Bilateral primary osteoarthritis of knee Plan: #Bilateral knee OA Confirmed on XR Recommend low impact exercises to decrease strain on knee and increase movement to aid weight loss (3) On allopurinol therapy: Code(s): Z79.899 - Other halfway (current) drug therapy Category: Medical Plan: #Long-term Current Use of Allopurinol Risks and benefits of allopurinol discussed with patient Benefits include decreased gout flares, remission of gout and reduction of tophi Risks include allopurinol hypersensitivity syndrome which is a severe cutaneous adverse reaction associated with allopurinol use particularly in patients who are HLA B*5801 positive, increased transaminases, GI upset including diarrhea, nausea and vomiting, and other dermatologic manifestations. (4) Current use of steroid medication: Code(s): Z79.52 - prison (current) use of systemic steroids Category: Medical Plan: #Long-term Use of Steroids Discussed with patient the risks and benefits of steroid for managing the rheumatic condition Benefits include: - Reduced pain, improved mobility, increased participation in activities, and decreased progression of disease Risks include: - GI upset, potential ultrasound worsening or formation (especially in patients > 65 years old), elevated blood pressure/worsening hypertension, elevated blood sugar/worsening diabetes control, worsening of bone density, elevated lipids/worsening triglycerides, cataract formation, weight gain Recommended using proton pump inhibitors (PPIs) for the duration of steroid use to reduce the risk of gastric ulcers and vitamin-D daily to reduce the risk of osteoporosis Labs checked: ?A1c, T spot, hepatitis-B and C serologies Pneumocystis jiroveci prophylaxis: ?Patient with risk factors including steroids greater than 50 mg for more than 30 days, age greater than 60 years, and lung involvement from underlying rheumatic disease requires prophylaxis and will be given so Plan I spent 30 minutes reviewing the record and labs, taking a history, examining the patient, discussing the treatment plan and documenting in the medical record Orders: Orders C Reactive Protein 4 Weeks M17.0 - Bilateral primary osteoarthritis of knee, M1A.09X0 - Idiopathic chronic gout, multiple sites, without tophus (tophi), Z79.52 - prison (current) use of systemic steroids, Z79.899 - Other long term acute care registered nurse (current) drug therapy Uric Acid 4 Weeks M17.0 - Bilateral primary osteoarthritis of knee, M1A.09X0 - Idiopathic chronic gout, multiple sites, without tophus (tophi), Z79.52 - continuous churn buttermaker (current) use of systemic steroids, Z79.899 - Other long term acute care registered nurse (current) drug therapy Complete Blood Count Auto Diff Today M1A.09X0 - Idiopathic chronic gout, multiple sites, without tophus (tophi) Complete Blood Count Auto Diff 4 Weeks M17.0 - Bilateral primary osteoarthritis of knee, M1A.09X0 - Idiopathic chronic gout, multiple sites, without tophus (tophi), Z79.52 - continuous churn buttermaker (current) use of systemic steroids, Z79.899 - Other halfway (current) drug therapy Comprehensive Met. Panel 4 Weeks M17.0 - Bilateral primary osteoarthritis of knee, M1A.09X0 - Idiopathic chronic gout, multiple sites, without tophus (tophi), Z79.52 - continuous churn buttermaker (current) use of systemic steroids, Z79.899 - Other long term acute care registered nurse (current) drug therapy Erythrocyte Sedimentation Rate 4 Weeks M17.0 - Bilateral primary osteoarthritis of knee, M1A.09X0 - Idiopathic chronic gout, multiple sites, without tophus (tophi), Z79.52 - prison (current) use of systemic steroids, Z79.899 - Other long term acute care registered nurse (current) drug therapy Comprehensive Met. Panel Today M1A.09X0 - Idiopathic chronic gout, multiple sites, without tophus (tophi) C Reactive Protein Today M1A.09X0 - Idiopathic chronic gout, multiple sites, without tophus (tophi) Erythrocyte Sedimentation Rate Today M1A.09X0 - Idiopathic chronic gout, multiple sites, without tophus (tophi) Uric Acid Today M1A.09X0 - Idiopathic chronic gout, multiple sites, without tophus (tophi) Medications: Changed From allopurinol 400 mg (2 x 200 mg) PO DAILY 180 tabs 1RF M10.9 - Gout, unspecified To allopurinol 500 mg (2.5 x 200 mg) PO DAILY 180 tabs 1RF M10.9 - Gout, unspecified Refilled prednisone 2.5 mg PO DAILY 90 tabs 1RF M10.9 - Gout, unspecified Coding Level of Care Code Est Pt Level 4 (30756) Complex EM visit Add On G2211 Diagnoses Idiopathic chronic gout of multiple sites without tophus M1A.09X0 Gout site: multiple sites Gout etiology: idiopathic Chronicity: chronic Presence of tophus: without tophus Primary osteoarthritis of both knees M17.0 Osteoarthritis type: primary On allopurinol therapy Z79.899 Current use of steroid medication Z79.52
[2024-12-06 14:11] VITALS: BP 130/82; PULSE 72; O2SAT 98; BMI 50.2
== END 2024-12-06 14:49 | disposition home or self-care (01) ==
PROVIDERS: PCP Internal Medicine; Visit Provider Student in an Organized Health Care Education/Training Program
DX: M1A.09X0 Idiopathic chronic gout, multiple sites, without tophus (tophi) (principal); M17.0 Bilateral primary osteoarthritis of knee; Z79.899 Other long term (current) drug therapy; Z79.52 Long term (current) use of systemic steroids
CPT/HCPCS: 99214; G2211

== ENCOUNTER 2024-12-21 13:59 | Outpatient (AMB) | payer OTHER, SELFPAY ==
--- NOTE | 2024-12-21 14:28 | MHC.OFFVIS ---
Vital Signs 12/21/24 14:34 Height 4 ft 11 in Weight 248 lb 3.848 oz BMI 50.1 BP 134/82 Blood Pressure Location Lt brachial Position Sitting Pulse 91 Pulse Source Pulse Oximeter Pulse Oximetry (%) 98 Oxygen Delivery Method Room Air Intake Visit Reasons: Follow up Intake Note: Patient presents for follow up. I have a soar inside my mouth since I stater to take 600 mg of Allopurinol and constant headaches. Allergies azithromycin [AZITHROMYCIN] Allergy (Unknown, Verified 12/21/24 14:34) UNKNOWN Penicillins [PENICILLINS] Allergy (Unknown, Verified 12/21/24 14:34) SEIZURE Medication List - Last Reconciled 12/21/24 by Emely Estes MD acetaminophen (Tylenol Extra Strength) 500 mg PO Q6H PRN albuterol sulfate 90 mcg/actuation (ProAir HFA) 2 puffs inhalation Q6H PRN albuterol sulfate mg inhalation allopurinol 600 mg (2 x 300 mg) PO DAILY cetirizine 10 mg PO DAILY citalopram 40 mg PO DAILY clonazepam 1 mg PO BEDTIME PRN diclofenac sodium 1% 4 grams topical QID fluticasone propion-salmeterol 115-21 mcg/actuation (Advair HFA) 2 puffs inhalation BID fluticasone propionate 50 mcg/actuation 2 sprays intranasal DAILY hydrochlorothiazide 25 mg PO DAILY leg brace (Knee Brace Large-XLarge) Apply to knee, especially right during prolong activities such as walking. levothyroxine 75 mcg PO DAILY lisinopril 10 mg PO DAILY omeprazole 20 mg PO DAILY prednisone 2.5 mg PO DAILY quetiapine 50 mg PO BEDTIME rizatriptan mg PO zolpidem 10 mg PO BEDTIME PRN HPI Comments Details: Patient is a 59-year-old morbidly obese female with non crystal proven gout, hypertension, hypothyroidism and polyarticular osteoarthritis (knees, hands) who presents today for an acute sick visit for left knee pain Interval History: Patient last seen 12/06/2024 with me. At that time she had increased her dose of allopurinol however was not taking prednisone everyday and had a mini flare involving her right big toe. I reiterated that she shouldn't stop her prednisolone especially during the time when we are adjusting her uric acid lowering medications because that will precipitate a flare. She had repeat uric acid done which was 6.6 and allopurinol was increased to 600 mg. On the 600 mg patient has developed ulcers in the mouth. No new flares Rheumatologic History: Non crystal proven gout Polyarticular osteoarthritis involving knees and hands Current Rheumatology Medication(s): Allopurinol 600 mg daily Prednisone 2.5mg [facility] Medical History (Updated 12/21/24 @ 15:23 by Emely Estes MD) Encounter for monitoring febuxostat therapy Current use of steroid medication Trigger finger of all digits of both hands Carpal tunnel syndrome on both sides Surgical History History of cholecystectomy History of hysterectomy History of appendectomy Social History Household Members Other:: lives alone Housing: Apartment Are you a primary rn home care to a significant other at home: No Do you presently have visiting nurse or other home services: No 75 years or older and lives alone: No Alcohol intake: never Patient Tobacco Use Status: Never used Tobacco e-Cigarette/Vaping Use: Never Used service: No Current occupational status: disabled Cognitive needs: No Hearing needs: No Vision needs: Yes Review of Systems Const Details: Review of Systems Constitutional: Denies fever, chills, weight loss ENT: Denies vision changes, eye pain or eye redness, dental caries, dry mouth GI: Denies nausea, vomiting, diarrhea, abdominal pain, change in BM Pulm: Denies SOB, LOPEZ, hemoptysis, wheezing Cards: Denies chest pain, palpitations Skin: Denies Raynaud's, rash, nail changes, photosensitivity, [employer]: Denies headaches, weakness, paresthesias, recurrent falls MSK: as per HPI All other systems reviewed and are unremarkable except noted above Physical Exam Vital Signs: Last Vital Signs Pulse 91 12/21/24 14:34 BP 134/82 12/21/24 14:34 Pulse Ox 98 12/21/24 14:34 Oxygen Delivery Method Room Air 12/21/24 14:34 BMI result Body Mass Index 50.1 Vital signs reviewed Physical Examination CONSTITUITIONAL Patient alert and cooperative. Well appearing and in no apparent painful distress. Morbidly obese HEENT Conjunctiva and sclera clear. ?Pupils equal round and reactive to light. ?No lymphadenopathy. ? 3 cm shallow ulcer noted to the right buccal surface associated with erythema CHEST/RESPIRATORY SYSTEM Normal respiratory effort and able to speak in complete sentences. ?Clear to auscultation bilaterally. ?No crackles, rales, rhonchi, wheezes heard. CARDIAC SYSTEM Regular rate and rhythm. ?S1 and S2 heard no murmurs. ?Radial pulses intact bilaterally MSK Hands: ?Good head cashier strength bilaterally. No deformities noted. ?No synovitis noted to the MCPs, PIPs or DIPs. ?No tenderness to palpation of these joints. Wrists: ?Full range of motion at the wrists without pain. ?No tenderness to palpation or synovitis noted to the wrists. Elbows: Full range of motion without pain. No tenderness, weakness, swelling, increased warmth or erythema. Shoulders: Full range of motion without pain. No tenderness, weakness, swelling, increased warmth or erythema. Hips: Full range of motion without pain. Hip bursa: No tenderness to palpation Knees: ?Full range of motion. ?No tenderness, swelling, increased warmth or erythema.?No effusion or crepitations Ankles: Full range of motion. ?No tenderness, swelling, increased warmth or erythema.? Feet: ?Negative squeeze test. ?No redness or swelling noted to the right 1st MTP but mild tenderness to palpation elicited. Tender points:?No tenderness to palpation of the bilateral trapezius, supraspinatus, greater trochanters, anterior costochondral junctions, bilateral gluteal areas, bilateral suboccipital muscle insertions SKIN Skin intact without rashes. Results Reviewed Results Reviewed: Laboratory Tests 07/29/23 07/18/24 09:57 10:44 WBC 6.5 RBC 4.45 Hgb 13.3 Hct 41.2 Plt Count 221 ESR 37 H Sodium 144 Potassium 4.5 Chloride 110 H Carbon Dioxide 29 BUN 13 Creatinine 0.86 Uric Acid 4.5 7.9 H C-Reactive Protein 0.76 H Laboratory Tests 07/18/24 09/21/24 10:44 13:51 WBC 7.5 RBC 4.30 Hgb 12.9 Hct 39.8 Plt Count 245 ESR 29 H Sodium 144 Potassium 4.2 Chloride 109 H Carbon Dioxide 25 BUN 17 H Creatinine 0.90 Uric Acid 7.9 H 5.6 Calcium 9.5 9.2 Total Bilirubin 0.3 0.2 AST 12 21 ALT 16 23 Alkaline Phosphatase 80 90 C-Reactive Protein 0.76 H 0.69 H Laboratory Tests 12/06/24 15:17 WBC 6.6 RBC 4.50 Hgb 13.2 Hct 40.9 Plt Count 235 ESR 38 H Sodium 141 Potassium 4.6 Chloride 109 H Carbon Dioxide 27 BUN 12 Creatinine 0.73 Random Glucose 79 Uric Acid 6.6 H AST 17 ALT 20 Alkaline Phosphatase 89 C-Reactive Protein 0.77 H XR Bilateral Knees 08/2024 FINDINGS: RIGHT KNEE: Medial Compartment: Joint space narrowing and marginal osteophytes indicative of moderate osteoarthritis. Lateral Compartment: Marginal osteophytes without joint space narrowing indicative of mild osteoarthritis. Patellofemoral Compartment: Nonuniform joint space narrowing and marginal osteophytes indicative of ccrw-ly-dmzxjjhv osteoarthritis. No effusion. Possible loose body posteriorly LEFT KNEE: Medial Compartment: Joint space narrowing and marginal osteophytes indicative of xwtlreyp-ee-yreoaf osteoarthritis. Lateral Compartment: Marginal osteophytes indicative of mild osteoarthritis. Patellofemoral Compartment: Mild joint space narrowing and marginal osteophytes indicative of mild osteoarthritis. Small effusion. Assessment & Plan Assessment & Plan (1) Gout: Comment: Allopurinol therapy - stopped due oral ulcers Colchicine - stopped due to diarrhea Code(s): M10.9 - Gout, unspecified Category: Medical Qualifiers: Gout site: multiple sites Gout etiology: idiopathic Chronicity: chronic Presence of tophus: without tophus Qualified Code(s): M1A.09X0 - Idiopathic chronic gout, multiple sites, without tophus (tophi) Plan: #Non crystal proven gout patient is a 59-year-old female with non crystal proven non tophaceous gout here today for follow up. Last uric acid 6.6 and allopurinol increased to 600 mg daily. After the increase patient's started to develop oral ulcers. Concern is that this could be related to her allopurinol. We will have to stop allopurinol. Start febuxostat 40 mg daily. Continue prednisolone 2.5 mg. Goal uric acid less than 6. Plan - Stop Allopurinol - Prednisone 2.5mg daily - Start febuxostat 40mg daily - Magic mouth wash with lidocaine twice a day - RTC 3 months - Labs before visit: CBC, CMP, ESR, CRP, UA (2) Osteoarthritis of knees, bilateral: Code(s): M17.0 - Bilateral primary osteoarthritis of knee Category: Medical Qualifiers: Osteoarthritis type: primary Qualified Code(s): M17.0 - Bilateral primary osteoarthritis of knee Plan: #Bilateral knee OA Confirmed on XR Recommend low impact exercises to decrease strain on knee and increase movement to aid weight loss (3) Current use of steroid medication: Code(s): Z79.52 - long-term (current) use of systemic steroids Category: Medical Plan: #Long-term Use of Steroids Discussed with patient the risks and benefits of steroid for managing the rheumatic condition Benefits include: - Reduced pain, improved mobility, increased participation in activities, and decreased progression of disease Risks include: - GI upset, potential ultrasound worsening or formation (especially in patients > 65 years old), elevated blood pressure/worsening hypertension, elevated blood sugar/worsening diabetes control, worsening of bone density, elevated lipids/worsening triglycerides, cataract formation, weight gain Recommended using proton pump inhibitors (PPIs) for the duration of steroid use to reduce the risk of gastric ulcers and vitamin-D daily to reduce the risk of osteoporosis Labs checked: ?A1c, T spot, hepatitis-B and C serologies Pneumocystis jiroveci prophylaxis: ?Patient with risk factors including steroids greater than 50 mg for more than 30 days, age greater than 60 years, and lung involvement from underlying rheumatic disease requires prophylaxis and will be given so (4) Encounter for monitoring febuxostat therapy: Code(s): Z51.81 - Encounter for therapeutic drug level monitoring; Z79.899 - Other usp (current) drug therapy Category: Medical Plan: #Long-term Current Use of Febuxostat Risks and benefits of Feboxostat discussed with patient Benefits include decreased gout flares, remission of gout and reduction of tophi Discussed that febuxostat has a black box warning indicating an increased risk of from heart related causes and other causes. Other risks associated with this medication include heart arrhythmias, blurred vision, dizziness, shortness of breath, muscle pain and rash Plan I spent 30 minutes reviewing the record and labs, taking a history, examining the patient, discussing the treatment plan and documenting in the medical record Orders: Orders C Reactive Protein Today M1A.09X0 - Idiopathic chronic gout, multiple sites, without tophus (tophi) Comprehensive Met. Panel Today M1A.09X0 - Idiopathic chronic gout, multiple sites, without tophus (tophi) Complete Blood Count Auto Diff Today M1A.09X0 - Idiopathic chronic gout, multiple sites, without tophus (tophi) Erythrocyte Sedimentation Rate Today M1A.09X0 - Idiopathic chronic gout, multiple sites, without tophus (tophi) Uric Acid Today M1A.09X0 - Idiopathic chronic gout, multiple sites, without tophus (tophi) Medications: New febuxostat 40 mg PO DAILY 90 tabs 1RF M1A.09X0 - Idiopathic chronic gout, multiple sites, without tophus (tophi) Magic Mouthwash Diphen/Lido/Antacid 1:1:1 Lidocaine Viscous 2 % 80mL; diphenhydramine 12.5 mg/5 mL 80mL; aluminum-mag hydrox-simeth [id number]-88pv/5mL 80mL Use 10mL to swish and spit twice a day 10 mL PO BID 240 mL 1RF K12.0 - Recurrent oral aphthae Discontinued allopurinol Discontinued Reason: Doctor's Order 600 mg (2 x 300 mg) PO DAILY 180 tabs 1RF M10.9 - Gout, unspecified Coding Level of Care Code Est Pt Level 4 (44154) Complex EM visit Add On G2211 Diagnoses Idiopathic chronic gout of multiple sites without tophus M1A.09X0 Gout site: multiple sites Gout etiology: idiopathic Chronicity: chronic Presence of tophus: without tophus Primary osteoarthritis of both knees M17.0 Osteoarthritis type: primary Current use of steroid medication Z79.52 Encounter for monitoring febuxostat therapy Z51.81; Z79.020
[2024-12-21 14:34] VITALS: BP 134/82; PULSE 91; O2SAT 98; BMI 50.1
--- OUTSIDE RECORDS SUMMARY | 2024-12-21 17:13 | XMS_ITS | Encounter Summary ---
Author Organization [employer] Address [address] [place] [address] Care Team Providers Care Voice Pathologist Name Role Phone Jak Hinojosa MD Primary Care Provider [phone] Reason for Visit * Reason Onset Date Comments Med Refill 12/20/2024 Encounter Details Date Type Department Care Team ([facility] Contact Info) Description 12/20/2024 Telephone [facility] [address] [phone] Inderjit Paez MD [address] [phone] Med Refill Social History Tobacco Use Types Packs/Day Years [...] AM EST documented as of this encounter Ordered Prescriptions Prescription Sig Dispense Quantity Refills Last Filled Start Date End Date albuterol sulfate (ProAir RespiClick) 90 mcg/actuation aerosol powdr breath activated Inhale 180 mcg by mouth every 4 (four) hours. 1 each 3 12/20/2024 12/20/2025 documented in this encounter Progress Notes * Orlando Mondragon MA - 12/20/2024 12:52 PM EST DARIAN 09/14/24 * Jessica Quintana - 12/20/2024 12:09 PM EST Refill: PROAIR RESPICLICK 108 MCG/ACT AEPB 108 Darian: 09/14/2024 Nov: 09/15/2025 documented in this encounter Plan of Treatment Upcoming Encounters Date Type Department Care Team (Late st Contact Info) Description 01/17/2025 9:45 AM EDT Office Visit Adult Medicine [address] [phone] Paty Nguyen PA [address] [place] [phone] 02/23/2025 3:45 PM EDT Office Visit Bariatric Surgery - [place] [address] [phone] Elizabeth Maldonado MD [address] [address] 09/15/2025 2:30 PM EST Office Visit Pulmonolgy - [place] [address] [phone] Inderjit Paez MD [address] [address] documented as of this encounter Visit Diagnoses Not on filedocumented in this encounter Care Teams Voice Pathologist Relationship Specialty Start Date End Date Jak Hinojosa MD [address] [place] [phone] PCP - General Internal Medicine 10/04/14 documented as of this encounter
--- OUTSIDE RECORDS SUMMARY | 2024-12-21 17:13 | XMS_ITS | Encounter Summary ---
Author Organization [employer] Address [address] [place] [address] Care Team Providers Care Loss Prevention Officer Name Role Phone Jak Hinojosa MD Primary Care Provider [phone] Reason for Visit * Reason Onset Date Comments Results 11/21/2024 Encounter Details Date Type Department Care Team (Late st Contact Info) Description 11/21/2024 Telephone Adult Medicine [address] [phone] Jak Hinojosa MD [address] [place] [phone] Results Social History Tobacco Use Types Packs/Day [...] AM EDT Office Visit Adult Medicine [address] [phone] Paty Nguyen PA [address] [place] [phone] 02/23/2025 3:45 PM EDT Office Visit Bariatric Surgery - [place] [address] [place] [phone] Elizabeth Maldonado MD [address] [address] 09/15/2025 2:30 PM EST Office Visit Pulmonolgy - [place] [address] [phone] Inderjit Paez MD [address] [place] [address] documented as of this encounter Visit Diagnoses Not on filedocumented in this encounter Care Teams Loss Prevention Officer Relationship Specialty Start Date End Date Jak Hinojosa MD [address] [place] [phone] PCP - General Internal Medicine 10/04/14 documented as of this encounter
--- OUTSIDE RECORDS SUMMARY | 2024-12-21 17:13 | XMS_ITS | Encounter Summary ---
Author Organization [employer] Address [address] [place] [address] Care Team Providers Care Ballistics Expert Name Role Phone Jak Hinojosa MD Primary Care Provider [phone] Reason for Referral * Imaging (Routine) - Closed Specialty Diagnoses / Procedures Referred By Breanna lofton Referred To Contact Radiology Diagnoses Encounter for well woman exam with routine gynecological exam Screening breast examination Procedures MG Mammo Digital Screening w Ruben bilat MG Mammo Digital Screening Martha Blake CNM [address] [place] [phone] Phone: tel: fax: [address] [phone] Phone: tel: Referral ID Status Reason Start Date Expiration Date Visits Re quested Visits Authorized [id number] Closed 11/17/2024 11/17/2025 1 1 Reason for Visit * Imaging (Routine) - Closed Specialty Diagnoses / Procedures Referred By Breanna lofton Referred To Contact Radiology Diagnoses Encounter for well woman exam with routine gynecological exam Screening breast examination Procedures MG Mammo Digital Screening w Ruben bilat MG Mammo Digital Screening bilat Martha Garcia CNM [address] [place] [address] Phone: tel: fax: [address] Phone: tel: Referral ID Status Reason Start Date Expiration Date Visits Re quested Visits Authorized [id number] Closed 11/17/2024 11/17/2025 1 1 Encounter Details Date Type Department Care Team (Latest Contact Info) Description 11/21/2024 9:44 AM EST - 11/21/2024 11:59 PM EST Hospital Encounter Radiology Department - [address] [phone] Encounter for well woman exam with routine [...] for Wheezing for up to 30 days allopurinoL (ZYLOPRIM) 300 mg tablet Take 400 [...] mouth 2 times daily for 7 days. Lidocaine Pain Relief 4 % patch APPLY [...] crush or chew. 30 each 2 09/05/2024 5 albuterol HFA (PROAIR HFA ; PROVENTIL HFA ; VENTOLIN HFA) 90 mcg/actuation inhaler Inhale 2 puffs by mouth every 6 (six) hours if needed for wheezing. 5 levothyroxine (SYNTHROID, LEVOTHROID) 75 mcg tablet Take 1 tablet (75 mcg total) by mouth 1 (one) time each day before breakfast. 30 each 2 09/05/2024 5 documented as of this encounter Discharge Disposition Disposition Code Departure Means Destination Home or Self Care documented in this encounter Plan of Treatment Upcoming Encounters Date Type Department Care Team (Late st Contact Info) Description 01/17/2025 9:45 AM EDT Office Visit Adult Medicine [address] [phone] Paty Nguyen PA [address] [place] [phone] 02/23/2025 3:45 PM EDT Office Visit Bariatric Surgery [facility] [address] [phone] Elizabeth Maldonado MD 175 [facility] [address] [place] [address] 09/15/2025 2:30 PM EST Office Visit Pulmonolgy - [place] [address] [facility] [address] [place] [phone] Inedrjit Paez MD 175 [facility] [address] [place] [address] documented as of this encounter Procedures Procedure [...] is recommended in 1 year. Mammo Location: [facility], [address] [place] [address], [address], . -------- FINAL REPORT -------- Dictated By: Sabiha Conroy Dictated Date: 11/21/2024 19:28 ET Assigned Physician: Sabiha Conroy Reviewed and Electronically Signed By: Sabiha Conroy Signed Date: 11/21/2024 19:31 ET Workstation ID: [id number] Transcribed By: Self Edit Transcribed Date: 11/21/2024 [...] is recommended in 1 year. Mammo Location: [facility], [address] [place] [address], [address], . -------- FINAL REPORT -------- Dictated By: Sabiha Conroy Dictated Date: 11/21/2024 19:28 ET Assigned Physician: Sabiha Conroy Reviewed and Electronically Signed By: Sabiha Conroy Signed Date: 11/21/2024 19:31 ET Workstation ID: [id number] Transcribed By: Self Edit Transcribed Date: 11/21/2024 19:28 ET Martha Garcia CNM IMG BI PROCEDURES Final Resul t documented in this encounter Visit Diagnoses Diagnosis Encounter for well woman exam with routine gynecological exam Screening breast examination Other screening breast examination documented in this encounter Care Teams Ballistics Expert Relationship Specialty Start Date End Date Jak Hinojosa MD [address] [place] [phone] PCP - General Internal Medicine 10/04/14 documented as of this encounter
--- OUTSIDE RECORDS SUMMARY | 2024-12-21 17:13 | XMS_ITS | Clinical Summary ---
Author Organization [facility] Address [address] [facility] [place] [address] Phone Care Team Providers Care Flooring Mechanic Name Role Phone Jak Hinojosa MD Primary Care Provider [phone] Allergies Active Allergy Reactions Criticality Noted Date [...] mouth 1 (one) time each day. Active LORazepam (ATIVAN) 0.5 mg tablet Take [...] day. 90 tablet 1 09/05/20 24 Active lisinopriL (PRINIVIL,ZEST RIL) 10 [...] if needed for dizziness. 06/02/20 24 Active levothyroxine (SYNTHROID, LEVOTHROID) 75 mcg tablet TAKE ONE TABLET BY MOUTH EVERY DAY BEFORE BREAKFAST 90 tablet 1 12/13/19 25 Active Ventolin HFA 90 mcg/actuation inhaler INHALE 2 PUFFS INTO THE LUNGS EVERY 4 HOURS NEEDED FOR WHEEZING OR SHORTNESS OF BREATH 18 g 2 12/19/19 25 Active albuterol sulfate (ProAir RespiClick) 90 mcg/actuation aerosol powdr breath activated Inhale 180 mcg by mouth every 4 (four) hours. 1 each 3 12/20/19 25 026 Active albuterol HFA (PROAIR HFA ; PROVENTIL HFA ; VENTOLIN HFA) 90 mcg/actuation inhaler Inhale 2 puffs by mouth every 6 (six) hours if needed for wheezing. 025 Discontinued levothyroxine (SYNTHROID, LEVOTHROID) 75 mcg tablet Take 1 tablet (75 mcg total) by mouth 1 (one) time each day before breakfast. 30 each 2 09/05/20 24 025 Discontinued omeprazole (PriLOSEC) [address] capsule Take [...] 11/25/2021 Overview (08/03/2024): S/p laparscopic cholecystetomy 11/23/21 [facility] ([place]) Allergic rhinitis 01/30/2021 Prediabetes 03/30/2019 Gout 01/11/2019 Varicose veins with pain 09/27/2018 Hemorrhoids 10/23/2016 Overview (08/03/2024): s/p hemorrhoidectomy 02/06 at [facility] Fatty liver 10/22/2016 Overview (08/03/2024): Abdominal ultrasound 01/05;10/10 Fibromyalgia 12/24/2015 Migraine 11/28/2015 Hypothyroidism 08/13/2015 Depressive disorder 12/11/2014 Overview (08/16/2024): Depressive disorder, not elsewhere classified Asthma 11/19/2014 Colon polyp 11/19/2014 Overview (08/03/2024): Tubular adenoma on 02/06 at [facility]; repeat in 5 years GERD (gastroesophageal reflux disease) 5 Hypertension 11/19/2014 Obstructive sleep apnea 11/19/2014 Overview (08/03/2024): [facility] Home Polysomnogram: Date 12/29/2016; AHI 8, Unclassified apneas 0; Obstructive apneas 0; Central apneas 1; Mixed apneas 0; hypopneas 68; average oxygen saturation 96% (lowest 85% without saturations <88% for 5% or more of study) [facility] Polysomnogram treatment study. Date 12/13/2018. SE 68 [...] Encounters Date Type Department Care Team Description 12/20/2024 Telephone Pulmonolgy [facility] [address] [address] Inderjit Paez MD Med Refill 12/07/2024 Telephone Adult Medicine [address] [phone] Jak Hinojosa MD imaging results 11/21/2024 9:44 AM EST - 11/21/2024 11:59 PM EST Hospital Encounter Radiology Department - [address] [phone] Encounter for well woman exam with routine gynecological exam; Screening breast examination Discharge Disposition: Home or Self Care 11/21/2024 Telephone Adult Medicine [address] [phone] Jak Hinojosa MD Results 11/17/2024 11:15 AM EST Office Visit Obstetrics & Gynecology - [facility] [address] [place] [phone] Martha Garcia CNM Encounter for well woman exam with routine gynecological exam (Primary Dx); Screening breast examination; Renal cyst; Screen for STD (sexually transmitted disease) 11/15/2024 8:39 AM EST - 11/15/2024 11:59 PM EST Hospital Encounter Radiology Department - [address] [phone] Left kidney mass Discharge Disposition: Home or Self Care 11/07/2024 1:30 PM EST Office Visit Adult Medicine [address] [phone] Jak Hinojosa MD Left kidney mass (Primary Dx); Morbid obesity with BMI of 45.0-49.9, adult (CMS/HCC); Low back pain without sciatica, unspecified back pain laterality, unspecified chronicity 10/25/2024 8:24 AM EST - 10/25/2024 11:59 PM EST Hospital Encounter [facility] Ultrasound [address] [place] [phone] RUQ pain Discharge Disposition: Home or Self Care 10/13/2024 12:05 PM EST - 10/13/2024 11:59 PM EST Hospital Encounter [facility] [address] [phone] Acute pain of left knee Discharge Disposition: Home or Self Care 10/13/2024 11:00 AM EST Office Visit [facility] [address] [phone] Franklyn Leone PA Acute pain of left knee (Primary Dx) 10/12/2024 Nurse Triage Adult Medicine [address] [phone] Jak Hinojosa MD Hospital Follow-up 10/07/2024 10:00 AM EST Ancillary Procedure [facility] - [address] [facility] Jonathan [address] [place] [phone] Palpitations 09/28/2024 3:34 PM EST Anesthesia Event [facility] Endoscopy [address] [place] [address] Saroj Moore DO 09/28/2024 2:02 PM EST - 09/28/2024 11:59 PM EST Hospital Encounter [facility] Endoscopy [address] [place] [address] Kai Nj MD McAdams, Megan, CRNA Family hx of colon cancer; GERD (gastroesophageal reflux disease); RUQ pain Discharge Disposition: Home or Self Care 09/27/2024 Telephone Gastroenterology - [place] 175 [facility] [address] [facility] [address] [place] [address] Kai Nj MD SPECIAL PROCEDURE from Last 3 Months Immunizations Name Administration [...] Comments HYSTERECTOMY PROCEDURE: HISTORICAL HYSTERECTOMY APPENDECTOMY PROCEDURE: VT APPENDECTOMY OTHER SURGICAL HISTORY PROCEDURE: ---- HEMORRHOIDS ---- CARPAL TUNNEL RELEASE PROCEDURE: HISTORICAL CARPAL TUNNEL REL; COMMENT: trigger finger release and CTS OTHER SURGICAL HISTORY PROCEDURE: VT TENOLYSIS EXTENSOR TENDON HAND/FINGER EACH COLONOSCOPY 11/12/2018 PROCEDURE: HISTORICAL COLONOSCOPY; COMMENT: negative CHOLECYSTECTOMY PROCEDURE: HISTORICAL CHOLECYSTECTOMY OTHER SURGICAL HISTORY PROCEDURE: HISTORY OTHER; COMMENT: oophrectomy, unilateral Medical History Medical History Date Comments Hypertension 11/19/2014 DX:Hypertension Asthma 11/19/2014 DX:Asthma GERD (gastroesophageal reflu x disease) 11/19/2014 DX:GERD (gastroesophageal re flux disease) Colon polyp 11/19/20142022 DX:Colon polyp; COMMENT: Tubular adenoma 02/06; repeat [...] Yara A1 A5 Name Clin 1979 Term M Aguila stone Erich Delivery Location:[facility] Comments:Uncomplicated 1980 Term F Livin g Jorgeiss a Delivery Location:[facility] Comments:Uncompl 1982 Term M Aguila Galindo Delivery Location:[facility] Comments:asthma attack s requiring hospitalization 1984 25w 0d F Decea sed Vaness a Delivery Location:[facility] Comments:Born early, l ived 22 days 1984 Term F Aguila Mclean Delivery Location:[facility] Comments:uncompl 1985 Term M Aguila Jung Delivery Location:[facility] Comments:uncomplicated Last Filed Vital Signs Vital Sign [...] 9:45 AM EDT Office Visit Adult Medicine [address] [phone] Paty Nguyen PA [address] [place] [phone] 02/23/2025 3:45 PM EDT Office Visit Bariatric Surgery - [place] [address] [facility] [address] [place] [phone] Elizabeth Maldonado MD [address] [address] 09/15/2025 2:30 PM EST Office Visit Pulmonolgy - [place] [address] [facility] [address] [place] [phone] Inderjit Paez MD [address] [address] Health Maintenance Due Date Last Done Comments [...] CLINICAL LAB 09/22/2024 EXTERNAL XRAY REPORT 09/21/2024 BASIC METABOLIC PANEL Routine 09/05/2024 2:26 PM [...] is recommended in 1 year. Mammo Location: [facility], [address] [place] [address], [phone], . -------- FINAL REPORT -------- Dictated By: Sabiha Conroy Dictated Date: 11/21/2024 19:28 ET Assigned Physician: Sabiha Conroy Reviewed and Electronically Signed By: Sabiha Conroy Signed Date: 11/21/2024 19:31 ET Workstation ID: [id number] Transcribed By: Self Edit Transcribed Date: 11/21/2024 [...] is recommended in 1 year. Mammo Location: [facility], [address] [place] [address], [address], . -------- FINAL REPORT -------- Dictated By: Sabiha Conroy Dictated Date: 11/21/2024 19:28 ET Assigned Physician: Sabiha Conroy Reviewed and Electronically Signed By: Sabiha Conroy Signed Date: 11/21/2024 19:31 ET Workstation ID: [id number] Transcribed By: Self Edit Transcribed Date: 11/21/2024 19:28 ET Martha Garcia CNM IMG BI PROCEDURES Final Resul t * Chlamydia trachomatis and Neisseria gonorrhoeae molecular study (11/17/2024 11:09 AM EST) Neisseria gonorrhoeae PCR Negative Negative LAB MOLECULAR DIAGNOSTICS METHOD 11/18/2024 9:43 AM EST [facility] Chlamydia trachomatis PCR Negative Negative LAB MOLECULAR DIAGNOSTICS METHOD 11/18/2024 9:43 AM EST [facility] Swab Cervix uteri structure / Unknown Non-blood Collection / Unknown 11/17/2024 11:09 AM EST 11/17/2024 4:12 PM EST us Martha Garcia CNM LAB MICROBIOLOGY - GENERAL OR DERABLES Final Result [facility] [address] [place] [address], [place] [phone] * MR Abdomen wo and w Contrast (11/15/2024 10:11 AM EST) Anatomical Region Laterality Modality Body Magnetic Resonan ce 11/15/2024 7:36 PM EST Impressions 11/16/2024 1:50 PM EST Bilateral renal cysts. ??No suspicious renal lesion. Hepatomegaly and steatosis. POS [id number] -------- FINAL REPORT -------- Dictated By: Gisell Erickson Dictated Date: 11/15/2024 19:36 ET Assigned Physician: Gisell Erickson Reviewed and Electronically Signed By: Gisell Erickson Signed Date: 11/16/2024 13:50 ET Workstation ID: [id number] Transcribed By: Self Edit Transcribed Date: 11/15/2024 [...] opposed phase imaging from steatosis. 0.7 cm [id number] and T2 hyperintense lesion in the anterior [...] suspicious renal lesion. Hepatomegaly and steatosis. POS [id number] -------- FINAL REPORT -------- Dictated By: Gisell Erickson Dictated Date: 11/15/2024 19:36 ET Assigned Physician: Gisell Erickson Reviewed and Electronically Signed By: Gisell Erickson Signed Date: 11/16/2024 13:50 ET Workstation ID: [id number] Transcribed By: Self Edit Transcribed Date: 11/15/2024 [...] Signed Date: 11/01/2024 09:59 ET Workstation ID: [id number] Transcribed By: Self Edit Transcribed Date: 11/01/2024 [...] Signed Date: 11/01/2024 09:59 ET Workstation ID: [id number] Transcribed By: Self Edit Transcribed Date: 11/01/2024 09:54 ET us Kai Nj MD [facility] [place] PROCEDURES Final Result * XR Knee [...] Signed Date: 10/13/2024 12:21 ET Workstation ID: [id number] Transcribed By: Self Edit Transcribed Date: 10/13/2024 [...] Signed Date: 10/13/2024 12:21 ET Workstation ID: [id number] Transcribed By: Self Edit Transcribed Date: 10/13/2024 12:19 ET Franklyn JOSE IMG XR PROCEDURES Final Re sult * CARDIAC HOLTER MONITOR (REPORT GENERATED IN HOUSE) (10/07/2024 9:48 AM EST) Anatomical Region Laterality Modality Cardiac Diagnost ic Narrative 10/19/2024 9:25 PM EST [facility] DIAGNOSTIC TESTING DEPARTMENT [address] [place] [address] TEL: FAX: Type of test: ??48 hour [...] sinus rhythm with periods of sinus tachycardia Paty JOSE CV CARDIAC SERVICES PRO CEDURES Final Result * COLONOSCOPY Anesthesia - MAC; [facility] ENDOSCOPY (09/28/2024 3:57 PM EST) Anatomical Region [...] ? Metamucil. Narrative 09/28/2024 4:00 PM EST [facility] GI Patient Name: Shweta Alarcon Procedure [...] Procedure Code(s): ? --- Professional --- ? 39621, Colonoscopy, flexible; with removal of ? tumor(s), polyp(s), or other lesion(s) by snare ? technique Diagnosis Code(s): ? --- Professional --- ? Z86.010, Personal history of colonic polyps ? K64.0, First degree hemorrhoids ? D12.4, Benign neoplasm of descending colon ? K57.30, Diverticulosis of large intestine without ? perforation or abscess without bleeding CPT copyright 2020 [employer]. All rights reserved. The codes documented in this report are preliminary and upon security system technician review may be revised to meet current compliance requirements. Kai Nj MD 09/28/2024 4:00:13 PM This report has been signed electronically.Kai Nj MD Number of Addenda: 0 Note Initiated On: 09/28/2024 3:26 PM Scope In: Scope Out: ? Endoscopy Department at [facility] - [address] [place] [address], ? [place] [address] Procedure Note Kai Nj MD - 09/28/2024 [facility] GI Patient Name: Shweta Alarcon Procedure [...] was minimal. Procedure Code(s): --- Professional --- 78517, Colonoscopy, flexible; with removal of tumor(s), polyp(s), or other lesion(s) by snare technique Diagnosis Code(s): --- Professional --- Z86.010, Personal history of colonic polyps K64.0, First degree hemorrhoids D12.4, Benign neoplasm of descending colon K57.30, Diverticulosis of large intestine without perforation or abscess without bleeding CPT copyright 2020 [employer]. All rights reserved. The codes documented in this report are preliminary and upon security system technician reviewmay be revised to meet current compliance requirements. Kai Nj MD 09/28/2024 4:00:13 PM This report has been signed electronically.Kai Nj MD Number of Addenda: 0 Note Initiated On: 09/28/2024 3:26 PM Scope In: Scope Out: Endoscopy Department at [facility] - [address] [place] [phone] IMPRESSION: - Diverticulosis in the sigmoid colon. - Internal hemorrhoids. - One 4 mm polyp in the descending colon, removedwith a cold snare. Resected and retrieved. Recommendation: - Repeat colonoscopy in 5 years for surveillance. - Await pathology results. - Use fiber, for example Citrucel, Fibercon, Konsylor Metamucil. us Kai Nj MD GI~PROCEDURE ORDERABLES Final Re sult * EGD Anesthesia - MAC; [facility] ENDOSCOPY (09/28/2024 3:57 PM EST) Anatomical Region Laterality Modality Other 09/28/2024 3:26 PM EST Impressions 09/28/2024 3:57 PM EST - Normal esophagus. ? - Normal stomach. ? - Normal examined duodenum. ? - No specimens collected. Recommendation: ?- Observe patient's clinical course. Narrative 09/28/2024 3:57 PM EST [facility] GI Patient Name: Shweta Alarcon Procedure [...] Procedure Code(s): ? --- Professional --- ? 74181, Esophagogastroduodenoscopy, flexible, ? transoral; diagnostic, including collection of ? specimen(s) by brushing or washing, when performed ? (separate procedure) Diagnosis Code(s): ? --- Professional --- ? R12, Heartburn CPT copyright 2020 [employer]. All rights reserved. The codes documented in this report are preliminary and upon security system technician review may be revised to meet current compliance requirements. Kai Nj MD 09/28/2024 3:57:35 PM This report has been signed electronically.Kai Nj MD Number of Addenda: 0 Note Initiated On: 09/28/2024 3:26 PM Scope In: Scope Out: ? Endoscopy Department at [facility] - [address] [place] [address], ? [place] [address] Procedure Note Kai Nj MD - 09/28/2024 [facility] GI Patient Name: Shweta Alarcon Procedure [...] was normal. Procedure Code(s): --- Professional --- 32466, Esophagogastroduodenoscopy, flexible, transoral; diagnostic, including collection of specimen(s) by brushing or washing, when performed (separate procedure) Diagnosis Code(s): --- Professional --- R12, Heartburn CPT copyright 2020 [employer]. All rights reserved. The codes documented in this report are preliminary and upon security system technician reviewmay be revised to meet current compliance requirements. Kai Nj MD 09/28/2024 3:57:35 PM This report has been signed electronically.Kai Nj MD Number of Addenda: 0 Note Initiated On: 09/28/2024 3:26 PM Scope In: Scope Out: Endoscopy Department at [address] [phone] IMPRESSION: - Normal esophagus. - Normal stomach. - Normal examined duodenum. - No specimens collected. Recommendation: - Observe patient's clinical course. us Kai Nj MD GI~PROCEDURE ORDERABLES Final Re sult * Tissue exam (09/28/2024 3:52 PM EST) Final Diagnosis Descending Colon, polyp X 1: Tubular adenoma. 09/30/2024 10:36 AM EST [facility] HOSPITAL LAB Gross Description A. Large Intestine, Left/Descending Colon, polyp X 1: Labeled desc colon polyp x 1 . Received in formalin, is an approximately 0.4 cm, in greatest diameters, rubbery, santillan, polypoid tissue, which is inked black at the base, wrapped in paper and submitted in toto in one cassette, one piece, multiple levels. dvb/SL 09/30/2024 10:36 AM [facility] Disclaimer Unless otherwise specified, all tissue is 10% NB formalin fixed and paraffin embedded. 09/30/2024 10:36 AM [facility] Tissue Descending colon structure / Unknown 09/28/2024 3:52 PM EST 09/29/2024 9:15 AM EST Kai Nj MD LAB PATHOLOGY ORDERABLES Final R esult [facility] [address] [place] [address], [place] [phone] * External clinical lab (09/22/2024) Provider Onbase LAB BLOOD ORDERABLES Final Re sult * External Xray Report (09/21/2024) Anatomical Region Laterality Modality Radiographic Chanda ging Provider Onbase IMG XR PROCEDURES Final Resul t * Basic metabolic panel (09/05/2024 2:26 PM EST) Sodium 140 133 - 145 mmol/L LAB CHEMISTRY METHOD 09/05/2024 4:56 PM [facility] Potassium 4.7 3.5 - 5.5 mmol/L LAB CHEMISTRY METHOD 09/05/2024 4:56 PM [facility] Chloride 106 96 - 110 mmol/L LAB CHEMISTRY METHOD 09/05/2024 4:56 PM [facility] CO2 27 21 - 32 mmol/L LAB CHEMISTRY METHOD 09/05/2024 4:56 PM [facility] Anion Gap 7 3 - 11 LAB CHEMISTRY METHOD 09/05/2024 4:56 PM EST [facility] Glucose 88 70 - 100 mg/dL LAB CHEMISTRY METHOD 09/05/2024 4:56 PM [facility] BUN 21 5 - 25 mg/dL LAB CHEMISTRY METHOD 09/05/2024 4:56 PM [facility] Creatinine 1.06 0.50 - 1.10 mg/dL LAB CHEMISTRY METHOD 09/05/2024 4:56 PM [facility] eGFR 60 >=60 mL/min/1. 73m2 LAB CHEMISTRY METHOD 09/05/2024 4:56 PM [facility] Comment:Calculation based on the??Chronic Kidney Disease Epidemiology Collaboration (CKD-EPI) equation refit??without adjustment for race. BUN/Creatinine Ratio 19.8 LAB CHEMISTRY METHOD 09/05/2024 4:56 PM [facility] Calcium 10.1 8.5 - 10.5 mg/dL LAB CHEMISTRY METHOD 09/05/2024 4:56 PM [facility] Blood Venous blood specimen / Unknown Venipuncture / Unknown 09/05/2024 2:26 PM EST 09/05/2024 2:26 PM EST Jak Hinojosa MD LAB BLOOD ORDERABLES Final Resu lt [facility] [address] [place] [address], * Hepatitis C Screening (04/17/2022) Pathologist [facility] Hepatitis C Screening Abstracted Red Alcala MD HEALTH MAINTENANCE Final Result * (ABNORMAL) Lipid panel (09/23/2021) Pathologist [facility] LDL/HDL Ratio 4 0 - 4 Triglycerides 158(A) 0 - 150 mg/dL Cholesterol 217(A) 0 - 200 mg/dL HDL 51 >=40 mg/dL LDL Cholesterol 135(A) 0 - 100 mg/dL Blood Venous blood specimen / Unknown Historical Provider LAB BLOOD ORDERABLES Conchis l Result * HIV Screening (08/28/2017) [facility] HIV Screening Abstracted Historical Provider HEALTH MAINTENANCE Final Result from Last 3 Months or Most Recently Relevant to Health Maintenance Insurance 09-[address] [place] [address] [facility] PLAN Care Teams Flooring Mechanic Relationship Specialty Start Date End Date Jak Hinojosa MD [address] [place] [phone] PCP - General Internal Medicine 10/04/14
--- OUTSIDE RECORDS SUMMARY | 2024-12-21 17:13 | XMS_ITS | Encounter Summary ---
Author Organization [employer] Address [address] [place] [address] Care Team Providers Care Clerical Investigator Name Role Phone Jak Hinojosa MD Primary Care Provider [phone] Reason for Visit * Reason Onset Date Comments imaging results 12/07/2024 Encounter Details Date Type Department Care Team (Late st Contact Info) Description 12/07/2024 Telephone Adult Medicine [address] [phone] Jak Hinojosa MD [address] [place] [phone] imaging results Social History Tobacco Use Types Packs/Day Years [...] as of this encounter Progress Notes * Leah Gonzalez MA - 12/20/2024 3:02 PM EST Pt has been informed * Jak Hinojosa MD - 12/16/2024 6:29 PM EST Please inform the patient that the results will be mailed * Ailyn Tavares MA - 12/07/2024 11:10 AM EST Please review and advise. * Kimmy Torres - 12/07/2024 9:08 AM EST Patient call requires triage: Symptoms patient is presenting: patient is reaching out regarding mri and ultra sound test that were taking last month. Results are in there however pt never received a letter or phone call regardingresults. Pt would like to know if results can be emailed to her personally? If results cannot be emailed then pt request results to be mailed again to home address if cannot be emailed. How long has patient had these symptoms?: 11/16/2024 For ALL patients calling to schedule any appointment (routine, sick visit, follow up, consult, etc.) in the outpatient setting please ask the following questions: Do you have fever of higher than 101, sore throat with difficulty swallowing or severe shortness ofbreath? no If YES to any of these above symptoms, send a message to triage and do not book. Red dot. If no, an audio or video visit should be booked. Have you had close contact with someone with Coronavirus in the last 14 days? no Have you traveled abroad? no Have you traveled recently to another state outside of [place], [place], [place], [place], [place], [place], [place]? no o If yes, did you quarantine for 14 days or have a negative covid test? no If yes to any of the above, patient is not to be scheduled in office until after 14 day quarantine or negative covid test. If pain or injury related was it due to an accident at work or from a motor vehicle accident? If yes, date of accident/Injury: No If yes, gather 3rd republican insurance information Third Green Party Information: not applicable PCP: Jak Hinojosa MD Payor: [employer] [facility] PLAN / Plan: [employer] MEDICAID / Product Type: *No Product type* / documented in this encounter Plan of Treatment Upcoming Encounters Date Type Department Care Team (Late st Contact Info) Description 01/17/2025 9:45 AM EDT Office Visit Adult Medicine [facility] [address] [place] [phone] Paty Nguyen PA [address] [place] [phone] 02/23/2025 3:45 PM EDT Office Visit Bariatric Surgery [facility] [address] [phone] Elizabeth Maldonado MD [address] [phone] 09/15/2025 2:30 PM EST Office Visit Pulmonolgy - [place] [address] [phone] Inderjit Paez MD [address] [address] documented as of this encounter Visit Diagnoses Not on filedocumented in this encounter Care Teams Clerical Investigator Relationship Specialty Start Date End Date Jak Hinojosa MD [address] [place] [phone] PCP - General Internal Medicine 10/04/14 documented as of this encounter
== END 2024-12-21 15:21 | disposition home or self-care (01) ==
PROVIDERS: PCP Internal Medicine; Visit Provider Student in an Organized Health Care Education/Training Program
DX: M1A.09X0 Idiopathic chronic gout, multiple sites, without tophus (tophi) (principal); M17.0 Bilateral primary osteoarthritis of knee; Z79.52 Long term (current) use of systemic steroids; Z51.81 Encounter for therapeutic drug level monitoring; Z79.899 Other long term (current) drug therapy
CPT/HCPCS: 99214; G2211

== ENCOUNTER → 2024-12-21 13:59 | Outpatient (BNVA) | payer OTHER, SELFPAY | PROVIDERS: PCP Internal Medicine; Visit Provider Student in an Organized Health Care Education/Training Program | DX: M1A.09X0 Idiopathic chronic gout, multiple sites, without tophus (tophi) (principal); M17.0 Bilateral primary osteoarthritis of knee; Z79.52 Long term (current) use of systemic steroids; Z79.899 Other long term (current) drug therapy | CPT/HCPCS: 99212 ==

== ENCOUNTER 2025-01-30 12:20 | Outpatient (AMB) | payer OTHER, SELFPAY ==
[2025-01-30 12:29] VITALS: BP 126/74; PULSE 97; O2SAT 98; BMI 50.2
--- NOTE | 2025-01-30 12:29 | A.OFFVIS_ITS ---
Vital Signs 01/30/25 12:29 Height 4 ft 11 in Weight 248 lb 10.903 oz BMI 50.2 BP 126/74 Blood Pressure Location Lt brachial Position Sitting Pulse 97 Pulse Source Pulse Oximeter Pulse Oximetry (%) 98 Oxygen Delivery Method Room Air Intake Visit Reasons: Knee pain/Gout Intake Note: Patient presents today for pain in right knee and she feels a bump behind it, she is in constant pain, even with her medications. She states it's been a week that she has been in pain. Allergies azithromycin [AZITHROMYCIN] Allergy (Unknown, Verified 01/30/25 12:34) UNKNOWN Penicillins [PENICILLINS] Allergy (Unknown, Verified 01/30/25 12:34) SEIZURE HPI Comments Details: Patient is a 59-year-old morbidly obese female with non crystal proven gout, hypertension, hypothyroidism and polyarticular osteoarthritis (knees, hands) who presents today for urgent visit for right leg pain Interval History: Patient last seen 12/21/24 with me. At that time she was complaining of oral ulcers which we thought could be related to the increase in allopurinol. She was changed to febuxostat and given magic mouthwash Today she reports improvement in the mouth ulcers, tolerating the febuxostat. Here today for right leg pain Patient known to have varicose veins and a history of superficial thrombophlebitis currently being managed by vascular surgery at [facility]. States that for the past 1 week she has been having worsening pain of her lower extremities with engorgement of her varicose veins on the right and tenderness to palpation of stiff blood vessels posteriorly Denies any swelling to her knees Rheumatologic History: Non crystal proven gout Polyarticular osteoarthritis involving knees and hands Current Rheumatology Medication(s): Febuxostat 40 mg daily Prednisone 2.5 mg daily [facility] Medical History (Updated 12/21/24 @ 15:23 by Emely Estes MD) Encounter for monitoring febuxostat therapy Current use of steroid medication Trigger finger of all digits of both hands Carpal tunnel syndrome on both sides Surgical History History of cholecystectomy History of hysterectomy History of appendectomy Social History Household Members Other:: lives alone Housing: Apartment Are you a primary youth care worker to a significant other at home: No Do you presently have visiting nurse or other home services: No 75 years or older and lives alone: No Alcohol intake: never Patient Tobacco Use Status: Never used Tobacco e-Cigarette/Vaping Use: Never Used service: No Current occupational status: disabled Cognitive needs: No Hearing needs: No Vision needs: Yes Review of Systems Const Details: Review of Systems Constitutional: Denies fever, chills, weight loss ENT: Denies vision changes, eye pain or eye redness, dental caries, dry mouth GI: Denies nausea, vomiting, diarrhea, abdominal pain, change in BM Pulm: Denies SOB, LOPEZ, hemoptysis, wheezing Cards: Denies chest pain, palpitations Skin: Denies Raynaud's, rash, nail changes, photosensitivity, MAT WORKER: Denies headaches, weakness, paresthesias, recurrent falls MSK: as per HPI All other systems reviewed and are unremarkable except noted above Physical Exam Vital Signs: Last Vital Signs Pulse 97 01/30/25 12:29 BP 126/74 01/30/25 12:29 Pulse Ox 98 01/30/25 12:29 Oxygen Delivery Method Room Air 01/30/25 12:29 BMI result Body Mass Index 50.2 MSK Right lower extremity with prominent varicose veins and nodules. Tender palpation to the Remy perforators in the upper thigh and dad perforators in the posterior leg. Results Reviewed Results Reviewed: Laboratory Tests 09/21/24 12/06/24 13:51 15:17 WBC 6.6 RBC 4.50 Hgb 13.2 Hct 40.9 Plt Count 235 ESR 38 H Sodium 141 Potassium 4.6 Chloride 109 H Carbon Dioxide 27 BUN 12 Creatinine 0.73 Uric Acid 5.6 6.6 H Calcium 9.4 Total Bilirubin 0.3 AST 17 ALT 20 Alkaline Phosphatase 89 C-Reactive Protein 0.69 H 0.77 H Total Protein 7.3 8.0 Albumin 4.0 4.1 Assessment & Plan Assessment & Plan (1) Superficial thrombophlebitis: Code(s): I80.9 - Phlebitis and thrombophlebitis of unspecified site Qualifiers: Superficial thrombophlebitis-Involved body area: lower extremity Laterality: right Qualified Code(s): I80.01 - Phlebitis and thrombophlebitis of superficial vessels of right lower extremity Plan: #Superficial thrombophlebitis of the RLE Patient is a 59-year-old female with superficial thrombophlebitis of the right lower extremity. No evidence of a gout flare today Recommending patient follow up with her vascular surgeon Topical heat and leg elevation Venous Doppler ultrasound of the right lower extremity Plan - Topical heat and leg elevation - Doppler US - Follow up with vascular - RTC February 2025 for follow up of gout - Labs before visit: CBC, CMP, ESR, CRP, UA Plan I spent 22 minutes reviewing the record and labs, taking a history, examining the patient, discussing the treatment plan, ordering diagnostic work up and documenting in the medical record Orders: Orders US venous duplex LE RT Today I80.9 - Phlebitis and thrombophlebitis of unspecified site Coding Level of Care Code Est Pt Level 3 (07581) Diagnoses Thrombophlebitis of superficial veins of right lower extremity I80.01 Superficial thrombophlebitis-Involved body area: lower extremity Laterality: right
--- OUTSIDE RECORDS SUMMARY | 2025-01-30 14:40 | XMS_ITS | Encounter Summary ---
Author Organization [employer] Address [address] [place] [address] Care Team Providers Care Corn Picker Name Role Phone Jak Hinojosa MD Primary Care Provider [phone] Reason for Visit * Reason Onset Date Comments Ear Problem 01/17/2025 Pain in the back of EAR Encounter Details Date Type Department Care Team (Late st Contact Info) Description 01/17/2025 Telephone Adult Medicine [address] [phone] Jak Hinojosa MD [address] [place] [id number] Ear Problem (Pain in the back of EAR ) Social History Tobacco Use Types Packs/Day Years [...] as of this encounter Progress Notes * Yola Doyle RN - 01/17/2025 8:41 AM EDT Pt. C/o of pain and tenderness behind her left ear. The area is tender to touch but not red. She denies fever chills, o sore throat but throat is tender externally on left side and uncomfortable whenshe moves her head to the rt. She denies congestion,fever,n/v or diarrhea but states she is extremely tired and fatigued apt. Made for this a.m. * Luca Zambrano - 01/17/2025 8:16 AM EDT Patient call requires triage: Symptoms patient is presenting: Patient is having pain the back of her left ear How long has patient had these symptoms?: Yesterday For ALL patients calling to schedule any [...] 14 days? no Have you traveled abroad? NO Have you traveled recently to another state outside of [place], [place], [place], [place], [place], [place], [place]? no o If yes, did you quarantine [...] of accident/Injury: No If yes, gather 3rd green party insurance information Third Constitution Party Information: not applicable PCP: Jak Hinojosa MD Payor: [employer] PLAN / Plan: Receptor MEDICAID / Product Type: *No Product type* / documented in this encounter Plan of Treatment Upcoming Encounters Date Type Department Care Team (Late st Contact Info) Description 02/23/2025 3:45 PM EDT Office Visit Bariatric Surgery - [place] [address] [place] [phone] Elizabeth Maldonado MD [address] [place] [address] 06/27/2025 10:20 AM EDT Office Visit [facility] [address] [place] [address] Sivakumar Tijerina MD [address] [place] [address] [address] [place] [address] 09/15/2025 2:30 PM EST Office Visit Pulmonolgy - [place] [address] [place] [phone] Inderjit Paez MD [address] [place] [address] documented as of this encounter Visit Diagnoses Not on filedocumented in this encounter Additional Health Concerns Infection Onset Date Last Indicated Resolved Time Respiratory Rule-Out 01/17/2025 01/17/2025 025 12:05 AM EDT COVID-19 Rule-Out 01/17/2025 01/17/2025 01/18/2025 12:05 AM EDT documented as of this encounter Care Teams Corn Picker Relationship Specialty Start Date End Date Jak Hinojosa MD [address] [place] [phone] PCP - General Internal Medicine 10/04/14 documented as of this encounter
--- OUTSIDE RECORDS SUMMARY | 2025-01-30 14:40 | XMS_ITS | Clinical Summary ---
Author Organization [facility] ([place], [place]) [facility] Address [address] [place] [address] Phone Care Team Providers Care Button Bradder Name Role Phone Jak Hinojosa MD Primary Care Provider [phone] Allergies Active Allergy Reactions Criticality Noted Date Comments Azithromycin Nausea And Vomiting,Rash High 5 Abdominal pain. Levofloxacin Swelling Medium 07/23/2018 Naproxen Swelling Low 05/20/2023 face Penicillins Seizures High 08/03/2024 Medications ibuprofen (ADVIL,MOTRIN) 600 mg tablet Take 1 [...] day. 90 each 1 09/05/20 24 Active predniSONE (DELTASONE) 2.5 mg tablet [...] BREAKFAST 90 tablet 1 12/13/19 25 Active albuterol sulfate (ProAir RespiClick) 90 mcg/actuation aerosol powdr breath activated Inhale 180 mcg by mouth every 4 (four) hours. 1 each 3 12/20/19 25 026 Active Ventolin HFA 90 mcg/actuation inhaler Inhale 2 puffs by mouth every 4 (four) hours if needed for wheezing or shortness of breath. 18 g 3 12/22/19 25 026 Active fluticasone propionate (FLONASE) 50 mcg/actuation nasal spray Administer 2 sprays into each nostril 1 (one) time each day. 16 g 1 01/18/20 25 Active fluticasone propionate (FLONASE) 50 mcg/actuation nasal spray : 2 Sprays by Each Nare route daily for 14 days Shake gently. Before first use, prime pump. After use, clean tip and replace cap. 025 Discontinu ed(Reorder ) doxycycline (VIBRAMYCIN) 100 mg capsule Take 1 capsule (100 mg total) by mouth 2 (two) times a day for 7 days. Take with at least 8 ounces (large glass) of water, do not lie down for 30 minutes after. Administer 2 hours before or after multivitamins, antacids, or other products containing polyvalent cations (i.e., calcium, iron, magnesium, selenium, zinc). 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 2024 Overview (11/16/2024): PPD -12 mm 02/19/2012 Synovial cyst of knee 11/16/2024 Tubular adenoma of colon 11/16/2024 Overview (11/16/2024): by colonoscopy 02/06 Venous thrombosis 11/16/2024 Morbid obesity with BMI of 50.0-59.9, adult 07/27 Allergic rhinitis 01/30/2021 Prediabetes 03/30/2019 Gout 01/11/2019 Varicose veins with pain 09/27/2018 Hemorrhoids 10/23/2016 Overview (08/03/2024): s/p hemorrhoidectomy 02/06 at [facility] Fatty liver 10/22/2016 Overview (08/03/2024): Abdominal ultrasound 01/05;10/10 Fibromyalgia 12/24/2015 Migraine 11/28/2015 Hypothyroidism 08/13/2015 Depressive disorder 12/11/2014 Overview (08/16/2024): Depressive disorder, not elsewhere classified Asthma 11/19/2014 Colon polyp 11/19/2014 Overview (08/03/2024): Tubular adenoma on 02/06 at [facility]; repeat in 5 years GERD (gastroesophageal reflux disease) 5 Hypertension 11/19/2014 Obstructive sleep apnea 11/19/2014 Overview (08/03/2024): [facility] [place]ys[place]: Date 12/29/2016; AHI 8, Unclassified apneas 0; Obstructive apneas 0; Central apneas 1; Mixed apneas 0; hypopneas 68; average oxygen saturation 96% (lowest 85% without saturations <88% for 5% or more of study) [facility] Polysomnogram treatment study. Date 12/13/2018. SE 68 [...] RLS symptoms. - CPAP @ 8 corrective. Bulimia nervosa 12/04/2010 Plantar fasciitis 01/19/2008 Resolved Problems Problem Noted Date Diagnosed Date Resolved Date Abdominal wall pain 11/16/2024 12/30/19 25 History of hysterectomy 11/16/2024/03/2025 Prolapse of vaginal vault after hysterectomy 12/29/2024 Cholecystitis 11/25/2021 12/28/2024 Overview (08/03/2024): S/p laparscopic cholecystetomy 11/23/21 [facility] ([place]) Breast pain 12/02/2011 12/29/2024 Encounters Date Type Department Care Team Description 01/25/[address] [place] [address] Jak Hinojosa MD 01/20/[address] [place] [address] Jak Hinojosa MD Appointment 01/17/2025 9:30 AM EDT Office Visit Adult Medicine [address] [phone] Barb Tavares PA Acute suppurative otitis media of left ear without spontaneous rupture of tympanic membrane, recurrence not specified (Primary Dx); Seasonal allergic rhinitis, unspecified trigger 01/17/2025 Telephone Adult Medicine [address] [phone] Jak Hinojosa MD Ear Problem (Pain in the back of EAR ) 12/29/2024 1:30 PM EST Office Visit Adult [address] [phone] Donya Ricardo MD Oral aphthous ulcer (Primary Dx); Hypertension, unspecified type; Prediabetes; Mild persistent asthma, unspecified whether complicated; Fibromyalgia 12/28/2024 Nurse Triage Adult Medicine [address] [phone] Jak Hinojosa MD Headache; Mouth Lesions 12/22/2024 Telephone [facility] [address] [address] Inderjit Paez MD Medication Problem 12/20/2024 Telephone [facility] [address] [phone] Inderjit Paez MD Med Refill 12/07/2024 Telephone Adult Medicine [address] [phone] Jak Hinojosa MD imaging results 11/21/2024 9:44 AM EST - 11/21/2024 11:59 PM EST Hospital Encounter Radiology Department - [address] [phone] Encounter for well woman exam with routine gynecological exam; Screening breast examination Discharge Disposition: Home or Self Care 11/21/2024 Telephone Adult Medicine [address] [phone] Jak Hinojosa MD Results 11/17/2024 11:15 AM EST Office Visit Obstetrics & Gynecology - [address] [phone] Martha Garcia CN Encounter for well woman exam with routine gynecological exam (Primary Dx); Screening breast examination; Renal cyst; Screen for STD (sexually transmitted disease) 11/15/2024 8:39 AM EST - 11/15/2024 11:59 PM EST Hospital Encounter Radiology Department - [address] [phone] Left kidney mass Discharge Disposition: Home or Self Care 11/07/2024 1:30 PM EST Office Visit Adult Medicine [address] [phone] Jak Hinojosa MD Left kidney mass (Primary Dx); Morbid obesity with BMI of 45.0-49.9, adult (CMS/HCC); Low back pain without sciatica, unspecified back pain laterality, unspecified chronicity from Last 3 Months Immunizations Name Administration [...] Surgical History Surgery Date Site/Laterality Comments HYSTERECTOMY APPENDECTOMY OTHER SURGICAL HISTORY PROCEDURE: ---- HEMORRHOIDS ---- CARPAL TUNNEL RELEASE : trigger finger release and CTS OTHER SURGICAL HISTORY : TX TENOLYSIS EXTENSOR TENDON HAND/FINGER EACH COLONOSCOPY 11/12/2018 : negative CHOLECYSTECTOMY OTHER SURGICAL HISTORY oophrectomy, unilateral Medical History Medical History Date Comments Hypertension 11/19/2014 Asthma 11/19/2014 GERD (gastroesophageal reflu x disease) 11/19/2014 Colon polyp 11/19/2014, 2022 Tubular adenoma 02/06; repeat 5 yrs Morbid obesity (CMS/HCC) 11/19/2014 Migraine 11/28/2015 Depression Fibromyalgia Sleep apnea Hypothyroid Family History Medical History Relation Name Comments Colon cancer Brother Arthritis Father Colon cancer Mother dx'd age 25 60s; arthr itis, breast cancer Breast cancer Mother's side 3 cousins, al [...] A5 Name Clin 1977 Term M Aguila Jung Delivery Location:[facility] Comments:Uncomplicated 1980 Term F Aguila stone Juliss a Delivery Location:[facility] Comments:Uncompl 1982 Term M Aguila Galindo Delivery Location:[facility] Comments:asthma attack s requiring hospitalization 1983 25w 0d F Decea sed Vaness a Delivery Location:[facility] Comments:Born early, l ived 22 days 1984 Term F Aguila stone Caridad Delivery Location:[facility] Comments:uncompl 1985 Term M Aguila Jung Delivery Location:[facility] Comments:uncomplicated Last Filed Vital Signs Vital Sign Reading Time Taken Comments Blood Pressure 119/86 01/17/2025 9:22 AM EDT Pulse 77 01/17/2025 9:22 AM EDT Temperature 36.7 ??C (98 ??F) 01/17/2025 9:22 AM EDT Respiratory Rate 14 01/17/2025 9:22 AM EDT Oxygen Saturation 99% 01/17/2025 9:22 AM EDT Inhaled Oxygen Concentration - - Weight 114 kg (252 lb) 01/17/2025 9:22 AM EDT Height 149.9 cm (4' 11 ) 01/17/2025 9:22 AM EDT Body Mass Index 50.9 01/17/2025 9:22 AM EDT Plan of Treatment Upcoming Encounters Date Type Department Care Team (Late st Contact Info) Description 02/23/2025 3:45 PM EDT Office Visit Bariatric Surgery - [place] [address] [place] [phone] Elizabeth Maldonado MD 175 [facility] [address] [place] [address] 06/27/2025 10:20 AM EDT Office Visit [facility] [address] [place] [phone] Sivakumar Tijerina MD [address] [place] [address] [address] [place] [address] 09/15/2025 2:30 PM EST Office Visit Pulmonolgy - [place] [address] [place] [phone] Inderjit Paez MD [address] [place] [address] Health Maintenance Due Date Last Done Comments Pneumococcal Vaccine: 50+ Years (1 of 2 - PCV) 1982 Pneumococcal Vaccine: Pediatrics (0 to 5 Years) and At-Risk Patients (6 to 64 Years) (1 of 2 - PCV) 1982 Cervical Cancer Screening: Pap Smear 1984 Zoster Vaccines (1 of 2) 2013 Depression Screening 10/04/2022 12/12/2020 Social Influencers of Health Screening 10/04/2022 RSV Immunization Adult Patients (1 - Risk 60-74 years 1-dose series) [...] age to complete this topic Meningococcal B Vaccine Aged Out No l onger eligible based on patient's age to complete this topic RSV Immunization Patients Under 20 months Aged Out No longer eligible based on patient's age to complete this topic Varicella Vaccines Aged Out No longer eligible based on patient's age to complete this topic Procedures Procedure Name Priority Date/Time Associated Diagnosis Comments [id number], RSV, FLU A AND B QUALITATIVE RT-PCR, LOCAL REFERENCE LAB Routine 01/17/2025 10:09 AM EDT Acute suppurative otitis media of left ear without spontaneous rupture of tympanic membrane, recurrence not specified MG MAMMO DIGITAL SCREENING W RUBEN BILAT [...] 11/15/2024 10:11 AM EST Left kidney mass COLONOSCOPY Routine 09/28/2024 3:57 PM EST Family hx of colon cancer GERD (gastroesophageal reflux disease) RUQ pain BASIC METABOLIC PANEL Routine 09/05/2024 2:26 PM EST Blurred vision HEPATITIS C SCREENING Routine 04/17/2022 LIPID PANEL Routine 09/23/2021 HIV SCREENING Routine 08/28/2017 from Last 3 Months or Most Recently Relevant to Health Maintenance Results * [id number], RSV, Influenza A and B qualitative RT-PCR (01/17/2025 10:09 AM EDT) SARS COV-2 Not Detected Not Detected LAB MOLECULAR DIAGNOSTICS METHOD 01/18/2025 12:05 AM EDT [facility] Comment: Disclaimer: The manner in which this information is used to guide patient care is the responsibility of the healthcare provider. Testing was performed using the [employer] m SARS-CoV-2 test. This test has been authorized by FDA under an Emergency Use Authorization (EUA). This test is only authorized for the duration of time the declaration that circumstances exist justifying the authorization of the emergency use of in vitro diagnostic tests for detection of SARS-CoV-2 virus and/or diagnosis of COVID-19 infection under section 564(b)(1) of the Act, 21 U.S.C. 360bbb- 3(b)(1), unless the authorization is terminated or revoked sooner. Fact sheet for Healthcare Providers can be found at: https://www.fda.gov/media/735908/download Fact sheet for Patients can be found at: https://www.fda.gov/media/644564/download Influenza A PCR Not Detected Not Detected LAB MOLECULAR DIAGNOSTICS METHOD 01/18/2025 12:05 AM EDT [facility] Influenza B PCR Not Detected Not Detected LAB MOLECULAR DIAGNOSTICS METHOD 01/18/2025 12:05 AM EDT [facility] RSV PCR Not Detected Not Detected LAB MOLECULAR DIAGNOSTICS METHOD 01/18/2025 12:05 AM EDT [facility] Swab Nasopharyngeal structure / Unknown Non-blood Collection / Unknown 01/17/2025 10:09 AM EDT 01/17/2025 10:09 AM EDT Barb JOSE LAB MICROBIOLOGY - GENERAL OR DERABLES Final Result [facility] [address] [place] [address], [place] [phone] * MG Mammo Digital Screening w Ruben bilat (11/21/2024 10:11 AM EST) Anatomical Region Laterality Modality Breast Bilateral Mammography 11/21/2024 7:28 PM EST Impressions 11/21/2024 7:31 PM EST 1. No mammographic evidence of malignancy 2. Scattered fibroglandular tissue BI-RADS CATEGORY: 2 - BENIGN RECOMMENDATION: Screening bilateral mammogram is recommended in 1 year. Mammo Location: [facility], [address] [place] [address], [address], . -------- FINAL REPORT -------- Dictated By: Sabiha Conroy Dictated Date: 11/21/2024 19:28 ET Assigned Physician: Sabiha Conroy Reviewed and Electronically Signed By: Sabiha Conroy Signed Date: 11/21/2024 19:31 ET Workstation ID: [id number] Transcribed By: Self Edit Transcribed Date: 11/21/2024 [...] is recommended in 1 year. Mammo Location: [facility], [address] [place] [address], [address], . -------- FINAL REPORT -------- Dictated By: Sabiha Conroy Dictated Date: 11/21/2024 19:28 ET Assigned Physician: Sabiha Conroy Reviewed and Electronically Signed By: Sabiha Conroy Signed Date: 11/21/2024 19:31 ET Workstation ID: [id number] Transcribed By: Self Edit Transcribed Date: 11/21/2024 19:28 ET us Martha Garcia CNM IM BI PROCEDURES Final Resul t * Chlamydia trachomatis and Neisseria gonorrhoeae molecular study (11/17/2024 11:09 AM EST) Neisseria gonorrhoeae PCR Negative Negative LAB MOLECULAR DIAGNOSTICS METHOD 11/18/2024 9:43 AM EST [facility] Chlamydia trachomatis PCR Negative Negative LAB MOLECULAR DIAGNOSTICS METHOD 11/18/2024 9:43 AM EST [facility] Swab Cervix uteri structure / Unknown Non-blood Collection / Unknown 11/17/2024 11:09 AM EST 11/17/2024 4:12 PM EST us Martha Garcia [facility] MICROBIOLOGY - GENERAL OR DERABLES Final Result [facility] ([facility] [address] [place] [address], [place] [phone] * MR Abdomen wo and w Contrast (11/15/2024 10:11 AM EST) Anatomical Region Laterality Modality Body Magnetic Resonan ce 11/15/2024 7:36 PM EST Impressions 11/16/2024 1:50 PM EST Bilateral renal cysts. ??No suspicious renal lesion. Hepatomegaly and steatosis. POS [id number] -------- FINAL REPORT -------- Dictated By: Gisell Erickson Dictated Date: 11/15/2024 19:36 ET Assigned Physician: Gisell Erickson Reviewed and Electronically Signed By: Gisell Erickson Signed Date: 11/16/2024 13:50 ET Workstation ID: [id number] Transcribed By: Self Edit Transcribed Date: 11/15/2024 [...] opposed phase imaging from steatosis. 0.7 cm [id number] and T2 hyperintense lesion in the anterior [...] suspicious renal lesion. Hepatomegaly and steatosis. POS [id number] -------- FINAL REPORT -------- Dictated By: Gisell Erickson Dictated Date: 11/15/2024 19:36 ET Assigned Physician: Gisell Erickson Reviewed and Electronically Signed By: Gisell Erickson Signed Date: 11/16/2024 13:50 ET Workstation ID: [id number] Transcribed By: Self Edit Transcribed Date: 11/15/2024 20:01 ET Jak Hinojosa MD IM MRI PROCEDURES Final Result * COLONOSCOPY Anesthesia - MAC; [facility] ENDOSCOPY (09/28/2024 3:57 PM EST) Anatomical Region [...] ? Metamucil. Narrative 09/28/2024 4:00 PM EST [facility] Patient Name: Shweta Alarcon Procedure Date: [...] Procedure Code(s): ? --- Professional --- ? 98539, Colonoscopy, flexible; with removal of ? tumor(s), polyp(s), or other lesion(s) by snare ? technique Diagnosis Code(s): ? --- Professional --- ? Z86.010, Personal history of colonic polyps ? K64.0, First degree hemorrhoids ? D12.4, Benign neoplasm of descending colon ? K57.30, Diverticulosis of large intestine without ? perforation or abscess without bleeding CPT copyright 2020 [employer]. All rights reserved. The codes documented in this report are preliminary and upon corn cooker review may be revised to meet current compliance requirements. Kai Nj MD 09/28/2024 4:00:13 PM This report has been signed electronically.Kai Nj MD Number of Addenda: 0 Note Initiated On: 09/28/2024 3:26 PM Scope In: Scope Out: ? Endoscopy Department at [facility] - [address] [place] [address], ? [place] [address] Procedure Note Kai Nj MD - 09/28/2024 [facility] GI Patient Name: Shweta Alarcon Procedure Date: [...] was minimal. Procedure Code(s): --- Professional --- 21579, Colonoscopy, flexible; with removal of tumor(s), polyp(s), or other lesion(s) by snare technique Diagnosis Code(s): --- Professional --- Z86.010, Personal history of colonic polyps K64.0, First degree hemorrhoids D12.4, Benign neoplasm of descending colon K57.30, Diverticulosis of large intestine without perforation or abscess without bleeding CPT copyright 2020 [employer]. All rights reserved. The codes documented in this report are preliminary and upon corn cooker reviewmay be revised to meet current compliance requirements. Kai Nj MD 09/28/2024 4:00:13 PM This report has been signed electronically.Kai Nj MD Number of Addenda: 0 Note Initiated On: 09/28/2024 3:26 PM Scope In: Scope Out: Endoscopy Department at [facility] - [address] [place] [phone] IMPRESSION: - Diverticulosis in the sigmoid colon. - Internal hemorrhoids. - One 4 mm polyp in the descending colon, removedwith a cold snare. Resected and retrieved. Recommendation: - Repeat colonoscopy in 5 years for surveillance. - Await pathology results. - Use fiber, for example Citrucel, Fibercon, Konsylor Metamucil. Kai Nj MD GI~PROCEDURE ORDERABLES Final Re sult * Basic metabolic panel (09/05/2024 2:26 PM EST) Sodium 140 133 - 145 mmol/L LAB CHEMISTRY METHOD 09/05/2024 4:56 PM [facility] Potassium 4.7 3.5 - 5.5 mmol/L LAB CHEMISTRY METHOD 09/05/2024 4:56 PM [facility] Chloride 106 96 - 110 mmol/L LAB CHEMISTRY METHOD 09/05/2024 4:56 PM [facility] CO2 27 21 - 32 mmol/L LAB CHEMISTRY METHOD 09/05/2024 4:56 PM [facility] Anion Gap 7 3 - 11 LAB CHEMISTRY METHOD 09/05/2024 4:56 PM [facility] Glucose 88 70 - 100 mg/dL LAB CHEMISTRY METHOD 09/05/2024 4:56 PM [facility] BUN 21 5 - 25 mg/dL LAB CHEMISTRY METHOD 09/05/2024 4:56 PM [facility] Creatinine 1.06 0.50 - 1.10 mg/dL LAB CHEMISTRY METHOD 09/05/2024 4:56 PM [facility] eGFR 60 >=60 mL/min/1. 73m2 LAB CHEMISTRY METHOD 09/05/2024 4:56 PM [facility] Comment:Calculation based on the??Chronic Kidney Disease Epidemiology Collaboration (CKD-EPI) equation refit??without adjustment for race. BUN/Creatinine Ratio 19.8 LAB CHEMISTRY METHOD 09/05/2024 4:56 PM [facility] Calcium 10.1 8.5 - 10.5 mg/dL LAB CHEMISTRY METHOD 09/05/2024 4:56 PM EST [facility] Blood Venous blood specimen / Unknown Venipuncture / Unknown 09/05/2024 2:26 PM EST 09/05/2024 2:26 PM EST Jak Hinojosa MD LAB BLOOD ORDERABLES Final Resu lt [facility] [address] [place] [address], * Hepatitis C Screening (04/17/2022) Pathologist [facility] Hepatitis C Screening Abstracted Historical Provider HEALTH [...] Most Recently Relevant to Health Maintenance Insurance [facility] [employer] Care Teams Button Bradder Relationship Specialty Start Date End Date Jak Hinojosa MD [address] [place] [address] PCP - General Internal Medicine 10/04/14
--- OUTSIDE RECORDS SUMMARY | 2025-01-30 14:40 | XMS_ITS | Encounter Summary ---
Author Organization [facility] Address [address] [place] [address] Care Team Providers Care Sheep Shearer Name Role Phone Jak Hinojosa MD Primary Care Provider [phone] Encounter Details Date Type Department Care Team (Late st Contact Info) Description 01/25/[address] [facility] [address] [place] [phone] Jak Hinojosa MD [address] [place] [address] Social History Tobacco Use Types Packs/Day Years [...] AM EST documented as of this encounter Plan of Treatment Upcoming Encounters Date Type Department Care Team (Late st Contact Info) Description 02/23/2025 3:45 PM EDT Office Visit Bariatric Surgery - [address] [place] [phone] Elizabeth Maldonado MD [address] [facility] [address] [place] [address] 06/27/2025 10:20 AM EDT Office Visit [facility] - [address] [place] [address] Sivakumar Tijerina MD [address] [place] [address] [address] [place] [address] 09/15/2025 2:30 PM EST Office Visit Pulmonolgy - [place] [address] [facility] [address] [place] [phone] Inderjit Paez MD 175 [facility] [address] [place] [address] documented as of this encounter Visit Diagnoses Not on filedocumented in this encounter Care Teams Sheep Shearer Relationship Specialty Start Date End Date Jak Hinojosa MD [address] [place] [address] PCP - General Internal Medicine 10/04/14 documented as of this encounter
--- OUTSIDE RECORDS SUMMARY | 2025-01-30 14:40 | XMS_ITS | Encounter Summary ---
Author Organization [facility] Address [address] [place] [address] Care Team Providers Care Repeater Operator Name Role Phone Jak Hinojosa MD Primary Care Provider [phone] Reason for Visit * Reason Onset Date Comments Appointment 01/20/2025 Encounter Details Date Type Department Care Team (Late st Contact Info) Description 01/20/2025 Telephone [facility] [address] [place] [address] Jak Hinojosa MD [address] [place] [address] Appointment Social History Tobacco Use Types Packs/Day Years [...] as of this encounter Progress Notes * Harvey Figueroa - 01/20/2025 9:33 AM EDT Patient called with a new referral for a new patient previous, if we can call her back to schedule she would appreciate it. documented in this encounter Plan of Treatment Upcoming Encounters Date Type Department Care Team (Late st Contact Info) Description 02/23/2025 3:45 PM EDT Office Visit Bariatric Surgery - [place] [address] [place] [phone] Elizabeth Maldonado MD [address] [facility] [address] [place] [address] 06/27/2025 10:20 AM EDT Office Visit [facility] [address] [place] [address] Sivakumar Tijerina MD [address] [place] [address] [address] [place] [address] 09/15/2025 2:30 PM EST Office Visit Pulmonolgy - [place] [address] [place] [phone] Inderjit Paez MD [address] [facility] [address] [place] [address] documented as of this encounter Visit Diagnoses Not on filedocumented in this encounter Care Teams Repeater Operator Relationship Specialty Start Date End Date Jak Hinojosa MD [address] [place] [id number] PCP - General Internal Medicine 10/04/14 documented as of this encounter
== END 2025-01-30 13:00 | disposition home or self-care (01) ==
PROVIDERS: PCP Internal Medicine; Visit Provider Student in an Organized Health Care Education/Training Program
DX: I80.01 Phlebitis and thrombophlebitis of superficial vessels of right lower extremity (principal)
CPT/HCPCS: 99213

== ENCOUNTER → 2025-01-30 12:20 | Outpatient (BNVA) | payer OTHER, SELFPAY | PROVIDERS: PCP Internal Medicine; Visit Provider Student in an Organized Health Care Education/Training Program | DX: I80.01 Phlebitis and thrombophlebitis of superficial vessels of right lower extremity (principal) | CPT/HCPCS: 99212 ==

== ENCOUNTER 2025-02-13 12:08 | Outpatient (REF) | payer OTHER, SELFPAY ==
--- NOTE | ~2025-02-13 | US_ITS ---
CLINICAL HISTORY: I80.9 - Phlebitis and thrombophlebitis of unspecified site Venous duplex ultrasound right lower extremity Comparison: None Findings: The visualized deep veins are fully compressible with normal Doppler color flow and spectral tracings. Thrombosis is visualized in the greater saphenous vein at the level of the knee. Thrombosis of the varicose vein above the knee. No popliteal cyst. IMPRESSION: Negative for right lower extremity deep vein thrombosis. There is Superficial thrombophlebitis. This document has been electronically signed by: Carolyn Pak MD on 02/13/2025 13:45:25
== END 2025-02-13 12:09 | disposition home or self-care (01) ==
LOC: HO.US 12:08
PROVIDERS: PCP Internal Medicine; Visit Provider Student in an Organized Health Care Education/Training Program
DX: I80.9 Phlebitis and thrombophlebitis of unspecified site (principal)
CPT/HCPCS: 93971

== ENCOUNTER → 2025-02-13 12:12 | Outpatient (BNV) | payer OTHER, SELFPAY | PROVIDERS: PCP Internal Medicine; Visit Provider Nuclear Medicine | DX: I80.9 Phlebitis and thrombophlebitis of unspecified site (principal) | CPT/HCPCS: 93971 ==

== ENCOUNTER 2025-03-14 09:07 | Outpatient (REF) | payer OTHER, SELFPAY ==
[2025-03-14 10:08] LABS: MANUAL DIFF FLAG NO
--- OUTSIDE RECORDS SUMMARY | 2025-03-14 10:59 | XMS_ITS | Clinical Summary ---
Author Organization [facility] [employer] Address [address] [place] [address] Phone Care Team Providers Care Workforce Manager Name Role Phone Jak Hinojosa MD Primary Care Provider [phone] Allergies Active Allergy Reactions Criticality Noted Date [...] Mass of uterine adnexa 11/16/2024 Morbid obesity ([facility] V24, [facility] V28) 2024 Severe obesity ([facility] V24, [facility] V28) 2024 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 2024 Overview (11/16/2024): PPD -12 mm 02/19/2012 Synovial cyst of knee 11/16/2024 Tubular adenoma of colon 11/16/2024 Overview (11/16/2024): by colonoscopy 02/06 Venous thrombosis 11/16/2024 Morbid obesity with BMI of 5 0.0-59.9, adult ([facility] V24, [facility] V28) 08/16/2024 Allergic rhinitis 01/30/2021 Prediabetes 03/30/2019 Gout 01/11/2019 Varicose veins with pain 09/27/2018 Hemorrhoids 10/23/2016 Overview (08/03/2024): s/p hemorrhoidectomy 02/06 at [facility] Fatty liver 10/22/2016 Overview (08/03/2024): Abdominal ultrasound 01/05;10/10 Fibromyalgia 12/24/2015 Migraine 11/28/2015 Hypothyroidism 08/13/2015 Depressive disorder 12/11/2014 Overview (08/16/2024): Depressive disorder, not elsewhere classified Asthma 11/19/2014 Colon polyp 11/19/2014 Overview (08/03/2024): Tubular adenoma on 02/06 at [facility]; repeat in 5 years GERD (gastroesophageal reflux disease) 5 Hypertension 11/19/2014 Obstructive sleep apnea 11/19/2014 Overview (08/03/2024): [facility] Home Polysomnogram: Date 12/29/2016; AHI 8, Unclassified apneas 0; Obstructive apneas 0; Central apneas 1; Mixed apneas 0; hypopneas 68; average oxygen saturation 96% (lowest 85% without saturations <88% for 5% or more of study) [facility] Polysomnogram treatment study. Date 12/13/2018. SE 68 [...] 12/28/2024 Overview (08/03/2024): S/p laparscopic cholecystetomy 11/23/21 [facility] ([place]) Breast pain 12/02/2011 12/29/2024 Encounters Date Type Department Care Team Description 03/07/2025 Telephone Adult Medicine [address] [address] Jak Hinojosa MD Hospital Follow-up (N/A) 02/21/2025 Telephone [facility] Cardiology [facility] [address] [place] [phone] Anne Vidales 01/25/2025 Telephone [facility] [address] [place] [address] Jak Hinojosa MD 01/20/2025 Telephone [facility] [address] [place] [address] Jak Hinojosa MD Appointment 01/17/2025 9:30 AM EDT Office Visit [address] [phone] Barb Tavares PA Acute suppurative otitis media of left ear without spontaneous rupture of tympanic membrane, recurrence not specified (Primary Dx); Seasonal allergic rhinitis, unspecified trigger 01/17/2025 Telephone Adult [address] [phone] Jak Hinojosa MD Ear Problem (Pain in the back of EAR ) 12/29/2024 1:30 PM EST Office Visit [address] [phone] Donya Ricardo MD Oral aphthous ulcer (Primary Dx); Hypertension, unspecified type; Prediabetes; Mild persistent asthma, unspecified whether complicated; Fibromyalgia 12/28/2024 Nurse Triage Adult [address] [phone] Jak Hinojosa MD Headache; Mouth Lesions 12/22/2024 [facility]phone [facility] [address] [facility] [address] [place] [address] Inderjit Paez MD Medication Problem 12/20/2024 Telephone [facility] [address] [facility] [address] [place] [address] Inderjit Paez MD Med Refill [...] release and CTS OTHER SURGICAL HISTORY : AL TENOLYSIS EXTENSOR TENDON HAND/FINGER EACH COLONOSCOPY 11/12/2018 : negative CHOLECYSTECTOMY OTHER SURGICAL HISTORY oophrectomy, unilateral Medical History Medical History Date Comments Hypertension 11/19/2014 Asthma 11/19/2014 GERD (gastroesophageal reflu x disease) 11/19/2014 Colon polyp 11/19/2014, 2022 Tubular adenoma 02/06; repeat 5 yrs Morbid obesity ([facility] V24, [facility] V28) 11/19/2014 Migraine 11/28/2015 Depression Fibromyalgia Sleep [...] Name Clin 1977 Term Onel Jung Delivery Location:[facility] Comments:Uncomplicated 1980 Term F Aguila stone Juliss a Delivery Location:[facility] Comments:Uncompl 1982 Term M Aguila Galindo Delivery Location:[facility] Comments:asthma attack s requiring hospitalization 1984 25w 0d F Decea sed Vaness a Delivery Location:[facility] Comments:Born early, l ived 22 days 1984 Term F Aguila Mclean Delivery Location:[facility] Comments:uncompl 1985 Term Onel Jung Delivery Location:[facility] Comments:uncomplicated Last Filed Vital Signs Vital [...] 9:30 AM EDT Office Visit Adult Medicine [facility] [address] [place] [address] Donya Ricardo MD [address] [place] [address] 05/23/2025 10:00 AM EDT Ancillary Procedure [facility] [address] [place] [address] 06/27/2025 10:20 AM EDT Office Visit [facility] - [address] [place] [address] Sivakumar Tijerina MD [address] [place] [address] [address] [place] [address] 09/15/2025 2:30 PM EST Office Visit [facility] [place] [address] [place] [address] Inderjit Paez MD [address] [place] [address] Health Maintenance Due Date Last Done Comments [...] VENOUS RIGHT Routine 02/15/2025 9:15 AM EDT [id number], RSV, FLU A AND B QUALITATIVE RT-PCR, [...] CV VASCULAR PROCEDURES Fi nal Result * [id number], RSV, Influenza A and B qualitative RT-PCR (01/17/2025 10:09 AM EDT) SARS COV-2 Not Detected Not Detected LAB MOLECULAR DIAGNOSTICS METHOD 01/18/2025 12:05 AM EDT [facility] ([facility] Comment: Disclaimer: The manner in which this information is used to guide patient care is the responsibility of the healthcare provider. Testing was performed using the [employer] m SARS-CoV-2 test. This test has [...] for Healthcare Providers can be found at: https://www.fda.gov/media/603782/download Fact sheet for Patients can be found at: https://www.fda.gov/media/903025/download Influenza A PCR Not Detected Not Detected LAB MOLECULAR DIAGNOSTICS METHOD 01/18/2025 12:05 AM EDT [facility] Influenza B PCR Not Detected Not Detected LAB MOLECULAR DIAGNOSTICS METHOD 01/18/2025 12:05 AM EDT [facility] RSV PCR Not Detected Not Detected LAB MOLECULAR DIAGNOSTICS METHOD 01/18/2025 12:05 AM EDT [facility] Swab Nasopharyngeal structure / Unknown Non-blood Collection / Unknown 01/17/2025 10:09 AM EDT 01/17/2025 10:09 AM EDT Barb JOSE LAB MICROBIOLOGY - GENERAL OR DERABLES Final Result [facility] [address] [place] [address], * MG Mammo Digital Screening w Ruben bilat (11/21/2024 10:11 AM EST) Anatomical Region Laterality Modality Breast Bilateral Mammography 11/21/2024 7:28 PM EST Impressions 11/21/2024 7:31 PM EST 1. No mammographic evidence of malignancy 2. Scattered fibroglandular tissue BI-RADS CATEGORY: 2 - BENIGN RECOMMENDATION: Screening bilateral mammogram is recommended in 1 year. Mammo Location: [facility], [address] [place] [address], [id number], . -------- FINAL REPORT -------- Dictated By: Sabiha Conroy Dictated Date: 11/21/2024 19:28 ET Assigned Physician: Sabiha Conroy Reviewed and Electronically Signed By: Sabiha Conroy Signed Date: 11/21/2024 19:31 ET Workstation ID: [id number] Transcribed By: Self Edit Transcribed Date: 11/21/2024 [...] is recommended in 1 year. Mammo Location: [facility], [address] [place] [address], [address], . -------- FINAL REPORT -------- Dictated By: Sabiha Conroy Dictated Date: 11/21/2024 19:28 ET Assigned Physician: Sabiha Conroy Reviewed and Electronically Signed By: Sabiha Conroy Signed Date: 11/21/2024 19:31 ET Workstation ID: [id number] Transcribed By: Self Edit Transcribed Date: 11/21/2024 19:28 ET Martha Garcia CNM IMG BI PROCEDURES Final Resul t * COLONOSCOPY Anesthesia - MAC; [facility] ENDOSCOPY (09/28/2024 3:57 PM EST) Anatomical Region [...] ? Metamucil. Narrative 09/28/2024 4:00 PM EST [facility] GI Patient Name: Shweta Mcclain Procedure [...] Procedure Code(s): ? --- Professional --- ? 46017, Colonoscopy, flexible; with removal of ? tumor(s), polyp(s), or other lesion(s) by snare ? technique Diagnosis Code(s): ? --- Professional --- ? Z86.010, Personal history of colonic polyps ? K64.0, First degree hemorrhoids ? D12.4, Benign neoplasm of descending colon ? K57.30, Diverticulosis of large intestine without ? perforation or abscess without bleeding CPT copyright 2020 [employer]. All rights reserved. The codes documented in this report are preliminary and upon tripe scraper review may be revised to meet current compliance requirements. Kai Nj MD 09/28/2024 4:00:13 PM This report has been signed electronically.Kai Nj MD Number of Addenda: 0 Note Initiated On: 09/28/2024 3:26 PM Scope In: Scope Out: ? Endoscopy Department at [facility] - [address] [place] [address], ? [place] [address] Procedure Note Kai Nj MD - 09/28/2024 [facility] GI Patient Name: Shweta Mcclain Procedure [...] was minimal. Procedure Code(s): --- Professional --- 79846, Colonoscopy, flexible; with removal of tumor(s), polyp(s), or other lesion(s) by snare technique Diagnosis Code(s): --- Professional --- Z86.010, Personal history of colonic polyps K64.0, First degree hemorrhoids D12.4, Benign neoplasm of descending colon K57.30, Diverticulosis of large intestine without perforation or abscess without bleeding CPT copyright 2020 [employer]. All rights reserved. The codes documented in this report are preliminary and upon tripe scraper reviewmay be revised to meet current compliance requirements. Kai Nj MD 09/28/2024 4:00:13 PM This report has been signed electronically.Kai Nj MD Number of Addenda: 0 Note Initiated On: 09/28/2024 3:26 PM Scope In: Scope Out: Endoscopy Department at [facility] - [address] [place] [id number] IMPRESSION: - Diverticulosis in the sigmoid colon. [...] LAB CHEMISTRY METHOD 09/05/2024 4:56 PM EST [facility] Potassium 4.7 3.5 - 5.5 mmol/L LAB CHEMISTRY METHOD 09/05/2024 4:56 PM EST [facility] Chloride 106 96 - 110 mmol/L LAB CHEMISTRY METHOD 09/05/2024 4:56 PM EST [facility] CO2 27 21 - 32 mmol/L LAB CHEMISTRY METHOD 09/05/2024 4:56 PM [facility] Anion Gap 7 3 - 11 LAB CHEMISTRY METHOD 09/05/2024 4:56 PM [facility] Glucose 88 70 - 100 mg/dL LAB CHEMISTRY METHOD 09/05/2024 4:56 PM [facility] BUN 21 5 - 25 mg/dL LAB CHEMISTRY METHOD 09/05/2024 4:56 PM [facility] Creatinine 1.06 0.50 - 1.10 mg/dL LAB CHEMISTRY METHOD 09/05/2024 4:56 PM [facility] eGFR 60 >=60 mL/min/1. 73m2 LAB CHEMISTRY METHOD 09/05/2024 4:56 PM [facility] Comment:Calculation based on the??Chronic Kidney Disease Epidemiology Collaboration (CKD-EPI) equation refit??without adjustment for race. BUN/Creatinine Ratio 19.8 LAB CHEMISTRY METHOD 09/05/2024 4:56 PM [facility] Calcium 10.1 8.5 - 10.5 mg/dL LAB CHEMISTRY METHOD 09/05/2024 4:56 PM [facility] Blood Venous blood specimen / Unknown Venipuncture / Unknown 09/05/2024 2:26 PM EST 09/05/2024 2:26 PM EST Jak Hinojosa MD LAB BLOOD ORDERABLES Final Resu lt [facility] [address] [place] [address], * Hepatitis C Screening (04/17/2022) Pathologist [facility] Hepatitis C Screening Abstracted Historical Provider HEALTH MAINTENANCE Final Result * (ABNORMAL) Lipid panel (09/23/2021) Pathologist [facility] LDL/HDL Ratio 4 0 - 4 Triglycerides 158(A) 0 - 150 mg/dL Cholesterol 217(A) 0 - 200 mg/dL HDL 51 >=40 mg/dL LDL Cholesterol 135(A) 0 - 100 mg/dL Blood Venous blood specimen / Unknown Historical Provider LAB BLOOD ORDERABLES Conchis l Result * HIV Screening (08/28/2017) Pathologist [facility] HIV Screening Abstracted Historical Provider HEALTH MAINTENANCE Final Result from Last 3 Months or Most Recently Relevant to Health Maintenance Insurance 09-[address] [place] [address] [facility] Care Teams Workforce Manager Relationship Specialty Start Date End Date Jak Hinojosa MD [address] [place] [id number] PCP - General Internal Medicine 10/04/14
[2025-03-14 11:16] LABS: Basophils Percent Auto 0.3 % (0-2); Eosinophils Absolute Auto 0.1 X10*3/uL (0.0-0.4); Eosinophils Percent Auto 1.2 % (0-4); Hemoglobin 13.8 g/dl (12.0-16.0); Imm Gran Abs Auto 0.03 X10*3/uL (0.00-0.03); Imm Gran Pct Auto 0.4 % (0.0-0.4); Lymphocytes Absolute Auto 1.8 X10*3/uL (1.2-4.9); Lymphocytes Percent Auto 24.3 % (20-40); Mean Corpuscular HGB Conc 32.1 g/dl (31.0-35.0); Mean Corpuscular Hemoglobin 29.5 pg (27.0-33.0); Mean Corpuscular Volume 91.9 fL (80.0-98.0); Mean Platelet Volume 11.3 fL (9.4-12.3); Monocytes Absolute Auto 0.5 X10*3/uL (0.1-1.2); Monocytes Percent Auto 6.7 % (2-11); Neutrophils Absolute Auto 5.1 x10*3/uL (2.0-8.3); Neutrophils Percent Auto 67.1 % (45-73); Platelet Count 302 X10*3/uL (160-400); Red Blood Count 4.68 X10*6/uL (4.20-5.50); Red Cell Distribution Width 14.2 % (11.0-16.0); White Blood Count 7.6 X10*3/uL (4.8-10.8)
[2025-03-14 11:26] LABS: Alanine Aminotransferase 21 U/L (0-31); Albumin Level 4.4 g/dL (3.5-5.0); Alkaline Phosphatase 89 U/L (39-117); Anion Gap 10 (12-20); Aspartate Amino Transferase 19 U/L (5-31); Bilirubin Total 0.4 mg/dL (0.0-1.0); Blood Urea Nitrogen 18 mg/dL (9-16); Carbon Dioxide 28 mmol/L (22-29); Chloride 105 mmol/L (96-108); Estimated Glomerular Filt Rate > 60; Glucose Random 103 mg/dL (60-115); Potassium 5.2 mmol/L (3.3-5.1); Sodium 138 mmol/L (135-145); Total Protein 8.1 g/dL (6.5-8.0)
[2025-03-14 11:40] LABS: Uric Acid 6.3 mg/dL (2.4-5.7)
[2025-03-14 11:48] LABS: Erythrocyte Sedimentation Rate 37 MM/HR (0-20)
== END 2025-03-14 09:08 | disposition home or self-care (01) ==
LOC: HO.LAB 09:07
PROVIDERS: PCP Internal Medicine; Visit Provider Student in an Organized Health Care Education/Training Program
DX: M1A.09X0 Idiopathic chronic gout, multiple sites, without tophus (tophi) (principal)
CPT/HCPCS: 36415; 80053; 84550; 85025; 85652; 86140; 96372; 99212; J3300

== ENCOUNTER 2025-03-14 09:07 | Outpatient (AMB) | payer OTHER, SELFPAY ==
--- NOTE | 2025-03-14 09:13 | MHC.OFFVIS ---
Vital Signs 03/14/25 09:19 Height 4 ft 11 in Weight 250 lb 7.122 oz BMI 50.6 BP 124/72 Blood Pressure Location Rt brachial Position Sitting Pulse 86 Pulse Source Pulse Oximeter Pulse Oximetry (%) 97 Oxygen Delivery Method Room Air Intake Visit Reasons: discuss ER visit Intake Note: Patient presents for ER visit follow up. Allergies azithromycin [AZITHROMYCIN] Allergy (Unknown, Verified 03/14/25 09:18) UNKNOWN Penicillins [PENICILLINS] Allergy (Unknown, Verified 03/14/25 09:18) SEIZURE Medication List - Last Reconciled 03/14/25 by Emely Estes MD acetaminophen (Tylenol Extra Strength) 500 mg PO Q6H PRN albuterol sulfate 90 mcg/actuation (ProAir HFA) 2 puffs inhalation Q6H PRN albuterol sulfate mg inhalation cetirizine 10 mg PO DAILY citalopram 40 mg PO DAILY clonazepam 1 mg PO BEDTIME PRN diclofenac sodium 1% 4 grams topical QID febuxostat 40 mg PO DAILY fluticasone propion-salmeterol 115-21 mcg/actuation (Advair HFA) 2 puffs inhalation BID fluticasone propionate 50 mcg/actuation 2 sprays intranasal DAILY hydrochlorothiazide 25 mg PO DAILY leg brace (Knee Brace Large-XLarge) Apply to knee, especially right during prolong activities such as walking. levothyroxine 75 mcg PO DAILY lisinopril 10 mg PO DAILY Magic Mouthwash Diphen/Lido/Antacid 1:1:1 10 mL PO BID omeprazole 20 mg PO DAILY prednisone 2.5 mg PO DAILY prednisone 5 mg PO DIRECTED quetiapine 50 mg PO BEDTIME rizatriptan mg PO zolpidem 10 mg PO BEDTIME PRN HPI Comments Details: Patient is a 59-year-old morbidly obese female with non crystal proven gout, hypertension, hypothyroidism and polyarticular osteoarthritis (knees, hands) who presents today for urgent visit for left foot pain Interval History: Patient last seen 01/30/25 with me. At that time she was here for an urgent visit for right calf pain. Exam was consistent with superficial thrombophlebitis and not gout. She was sent for a Doppler ultrasound which confirmed this. I recommended following up with vascular surgery conservative measures such as ice and foot elevation. Today she is here for urgent visit for left foot pain. Started about a week ago. Went to the ED and was given prednisone and ibuprofen. Currently complaining of significant GI upset but still unable to walk on the foot. Patient not taking her febuxostat and restarted allopurinol 300 mg without the knowledge of this provider Rheumatologic History: Non crystal proven gout Polyarticular osteoarthritis involving knees and hands Current Rheumatology Medication(s): Allopurinol 300 mg Prednisone not taking due to GI upset [facility] Medical History (Updated 12/21/24 @ 15:23 by Emely Estes MD) Encounter for monitoring febuxostat therapy Current use of steroid medication Trigger finger of all digits of both hands Carpal tunnel syndrome on both sides Surgical History History of cholecystectomy History of hysterectomy History of appendectomy Social History Household Members Other:: lives alone Housing: Apartment Are you a primary assurance services manager health care to a significant other at home: No Do you presently have visiting nurse or other home services: No 75 years or older and lives alone: No Alcohol intake: never Patient Tobacco Use Status: Never used Tobacco e-Cigarette/Vaping Use: Never Used service: No Current occupational status: disabled Cognitive needs: No Hearing needs: No Vision needs: Yes Review of Systems Const Details: Review of Systems Constitutional: Denies fever, chills, weight loss ENT: Denies vision changes, eye pain or eye redness, dental caries, dry mouth GI: Denies nausea, vomiting, diarrhea, abdominal pain, change in BM Pulm: Denies SOB, LOPEZ, hemoptysis, wheezing Cards: Denies chest pain, palpitations Skin: Denies Raynaud's, rash, nail changes, photosensitivity, FOOD TASTER: Denies headaches, weakness, paresthesias, recurrent falls MSK: as per HPI All other systems reviewed and are unremarkable except noted above Physical Exam Vital Signs: Last Vital Signs Pulse 86 03/14/25 09:19 BP 124/72 03/14/25 09:19 Pulse Ox 97 03/14/25 09:19 Oxygen Delivery Method Room Air 03/14/25 09:19 BMI result Body Mass Index 50.6 MSK Left foot swelling tenderness to palpation of the heel as well as the plantar surface. Office Procedures Injection-Therapetic IM Kenalog Lot# [id number] exp 04/2026 [facility]: [address]-5 Results Reviewed Results Reviewed: Laboratory Tests 09/21/24 12/06/24 13:51 15:17 WBC 6.6 RBC 4.50 Hgb 13.2 Hct 40.9 Plt Count 235 ESR 38 H Sodium 141 Potassium 4.6 Chloride 109 H Carbon Dioxide 27 BUN 12 Creatinine 0.73 Uric Acid 5.6 6.6 H Calcium 9.4 Total Bilirubin 0.3 AST 17 ALT 20 Alkaline Phosphatase 89 C-Reactive Protein 0.69 H 0.77 H Total Protein 7.3 8.0 Albumin 4.0 4.1 Assessment & Plan Assessment & Plan (1) Gout: Comment: Allopurinol therapy - stopped due oral ulcers Colchicine - stopped due to diarrhea Code(s): M10.9 - Gout, unspecified Category: Medical Qualifiers: Gout site: multiple sites Gout etiology: idiopathic Chronicity: chronic Presence of tophus: without tophus Qualified Code(s): M1A.09X0 - Idiopathic chronic gout, multiple sites, without tophus (tophi) Plan: #Non crystal proven gout Patient is a 59-year-old female with non crystal proven gout here today for urgent visit for left foot pain. The patient is likely having a gout flare on a background of noncompliance with gout regimen. Patient is supposed to be on febuxostat however patient is taking allopurinol 300 mg. Gave her an intramuscular injection of 60 mg of triamcinolone today given her significant GI upset. We will review efficacy in 3 days. Labs today Plan - S/p 60mg kenalog IM - Labs today: CBC, CMP, ESR, CRP, UA - RTC 3 days Plan I spent 30 minutes reviewing the record and labs, taking a history, examining the patient, discussing the treatment plan, ordering diagnostic work up and documenting in the medical record Orders: Orders Injection-Corticosteroid Today M10.9 - Gout, unspecified Medications: Discontinued prednisone Take 15 mg for 7 days then 10 mg for 7 days then 5 mg for 7 days then stop Discontinued Reason: Doctor's Order 5 mg PO DIRECTED 42 tabs 0RF M10.9 - Gout, unspecified Coding Level of Care Code Est Pt Level 4 (83111) Complex EM visit Add On G2211 Diagnoses Idiopathic chronic gout of multiple sites without tophus M1A.09X0 Gout site: multiple sites Gout etiology: idiopathic Chronicity: chronic Presence of tophus: without tophus Comment Add CPT Code 14530 + J3301 with 6 units
[2025-03-14 09:19] VITALS: BP 124/72; PULSE 86; O2SAT 97; BMI 50.6
--- OUTSIDE RECORDS SUMMARY | 2025-03-14 09:48 | XMS_ITS | Clinical Summary ---
Author Organization [facility] Address [address] [place] [address] Phone Care Team Providers Care Hypercil Core Transformer Assembler Name Role Phone Jak Hinojosa MD Primary Care Provider [phone] Allergies Active Allergy Reactions Criticality Noted Date [...] day. 90 tablet 1 09/05/20 24 Active hydroCHLOROthi azide (HYDRODIURIL) 25 mg tablet Take 1 tablet (25 mg total) by mouth 1 (one) time each day. 90 tablet 1 09/05/20 24 Active predniSONE (DELTASONE) 2.5 [...] day. 16 g 1 01/18/20 25 Active lisinopriL (PRINIVIL,ZEST RIL) 10 mg tablet TAKE ONE TABLET BY MOUTH EVERY DAY 90 tablet 1 03/13/20 25 Active lisinopriL (PRINIVIL,ZEST RIL) 10 mg tablet Take 1 tablet (10 mg total) by mouth 1 (one) time each day. 90 each 1 09/05/20 24 025 Discontinued Active Problems Problem Noted Date Diagnosed Date Sinus tachycardia 01/24/2025 Palpitation 01/24/2025 Arthralgia 11/16/2024 Carpal tunnel syndrome 11/16/2024 Chronic constipation 11/16/2024 Costochondritis 11/16/2024 Cyst of ovary 11/16/2024 Gastritis due to Helicobacter species 11/16/2024 Genital herpes simplex 11/16/2024 Low back pain 11/16/2024 Mass of uterine adnexa 11/16/2024 Morbid obesity ([facility] V24, [facility] V28) 2024 Severe obesity ([facility] V24, [facility] V28) 2024 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 2024 Overview (11/16/2024): PPD -12 mm 02/19/2012 Synovial cyst of knee 11/16/2024 Tubular adenoma of colon 11/16/2024 Overview (11/16/2024): by colonoscopy 02/06 Venous thrombosis 11/16/2024 Morbid obesity with BMI of 5 0.0-59.9, adult ([facility] V24, [facility] V28) 08/16/2024 Allergic rhinitis 01/30/2021 Prediabetes 03/30/2019 Gout 01/11/2019 Varicose veins with pain 09/27/2018 Hemorrhoids 10/23/2016 Overview (08/03/2024): s/p hemorrhoidectomy 02/06 at [facility] Fatty liver 10/22/2016 Overview (08/03/2024): Abdominal ultrasound 01/05;10/10 Fibromyalgia 12/24/2015 Migraine 11/28/2015 Hypothyroidism 08/13/2015 Depressive disorder 12/11/2014 Overview (08/16/2024): Depressive disorder, not elsewhere classified Asthma 11/19/2014 Colon polyp 11/19/2014 Overview (08/03/2024): Tubular adenoma on 02/06 at [facility]; repeat in 5 years GERD (gastroesophageal reflux disease) 5 Hypertension 11/19/2014 Obstructive sleep apnea 11/19/2014 Overview (08/03/2024): [facility] Home Polysomnogram: Date 12/29/2016; AHI 8, Unclassified apneas 0; Obstructive apneas 0; Central apneas 1; Mixed apneas 0; hypopneas 68; average oxygen saturation 96% (lowest 85% without saturations <88% for 5% or more of study) [facility] Polysomnogram treatment study. Date 12/13/2018. SE 68 [...] mostly hypopneas; without sleep related hypoventilation by 2019 home polysomnogram. - 12/13/2018 Pre-study ESS 6. 3/4 RLS symptoms. - CPAP @ 8 corrective. Bulimia nervosa 12/04/2010 Plantar fasciitis 01/19/2008 Resolved Problems Problem Noted Date Diagnosed Date Resolved Date Abdominal wall pain 11/16/2024 12/30/19 History of hysterectomy 11/16/2024 03/0 03/2025 Prolapse of vaginal vault after hysterectomy 12/29/2024 Cholecystitis 11/25/2021 12/28/2024 Overview (08/03/2024): S/p laparscopic cholecystetomy 11/23/21 [facility] Breast pain 12/02/2011 12/29/2024 Encounters Date Type Department Care Team Description 03/07/2025 Telephone Adult Medicine [address] [phone] Jak Hinojosa MD Hospital Follow-up (N/A) 02/21/2025 Telephone [facility] Cardiology [facility] [address] [place] [phone] Anne Vidales 01/25/2025 Telephone [facility] [address] [place] [address] Jak Hinojosa MD 01/20/2025 Telephone [facility] [address] [place] [address] Jak Hinojosa MD Appointment 01/17/2025 9:30 AM EDT Office Visit [address] [phone] Barb Tavares PA Acute suppurative otitis media of left ear without spontaneous rupture of tympanic membrane, recurrence not specified (Primary Dx); Seasonal allergic rhinitis, unspecified trigger 01/17/2025 Telephone Adult [address] [phone] Jak Hinojosa MD Ear Problem (Pain in the back of EAR ) 12/29/2024 1:30 PM EST Office Visit [address] [phone] Donya Ricardo MD Oral aphthous ulcer (Primary Dx); Hypertension, unspecified type; Prediabetes; Mild persistent asthma, unspecified whether complicated; Fibromyalgia 12/28/2024 Nurse Triage Adult [address] [phone] Jak Hinojosa MD Headache; Mouth Lesions 12/22/2024 [facility] [address] [facility] [address] [place] [address] Inderjit Paez MD Medication Problem 12/20/[address] [facility] [address] [facility] [address] [facility] [address] [place] [address] Inderjit Paez MD Med Refill from Last 3 Months Immunizations Name Administration [...] release and CTS OTHER SURGICAL HISTORY : OK TENOLYSIS EXTENSOR TENDON HAND/FINGER EACH COLONOSCOPY 11/12/2018 : negative CHOLECYSTECTOMY OTHER SURGICAL HISTORY oophrectomy, unilateral Medical History Medical History Date Comments Hypertension 11/19/2014 Asthma 11/19/2014 GERD (gastroesophageal reflu x disease) 11/19/2014 Colon polyp 11/19/2014, 2022 Tubular adenoma 02/06; repeat 5 yrs Morbid obesity ([facility] V24, [facility] V28) 11/19/2014 Migraine 11/28/2015 Depression Fibromyalgia Sleep apnea [...] Name Clin 1977 Term Onel Jung Delivery Location:[facility] Comments:Uncomplicated 1980 Term F Aguila stone Juliss a Delivery Location:[facility] Comments:Uncompl 1982 Term M Aguila Galindo Delivery Location:[facility] Comments:asthma attack s requiring hospitalization 1984 25w 0d F Decea sed Vaness a Delivery Location:[facility] Comments:Born early, l ived 22 days 1986 Term F Aguila Mclean Delivery Location:[facility] Comments:uncompl 1985 Term Onel Jung Delivery Location:[facility] Comments:uncomplicated Last Filed Vital Signs Vital Sign [...] Care Team (Late st Contact Info) Description 03/16/2025 9:30 AM EDT Office Visit Adult Medicine [facility] [address] [place] [address] Donya Ricardo MD [address] [place] [address] 05/23/2025 10:00 AM EDT Ancillary Procedure [facility] [address] [place] [address] 06/27/2025 10:20 AM EDT Office Visit [facility] - [address] [place] [address] Sivakumar Tijerina MD [address] [place] [address] [address] [place] [address] 09/15/2025 2:30 PM EST Office Visit Pulmonolgy - [place] [address] [place] [address] Inderjit Paez MD [address] [place] [address] Health Maintenance Due Date Last Done Comments [...] years 1-dose series) 2023 COVID-19 Vaccine ( - season) 2024 Hypertension/CHF/CAD Annual BMP Blood Test [...] Procedure Name Priority Date/Time Associated Diagnosis Comments VAS US DUPLEX LOWER EXT VENOUS RIGHT Routine 02/15/2025 9:15 AM EDT [id number], RSV, FLU A AND B QUALITATIVE RT-PCR, LOCAL REFERENCE LAB Routine 01/17/2025 10:09 AM EDT Acute suppurative otitis media of left ear without spontaneous rupture of tympanic membrane, recurrence not specified MG MAMMO DIGITAL SCREENING W RUBEN BILAT Routine 11/21/2024 10:11 AM EST Encounter for well woman exam with routine gynecological exam Screening breast examination COLONOSCOPY Routine 09/28/2024 3:57 PM EST Family hx of colon cancer GERD (gastroesophageal reflux disease) RUQ pain BASIC METABOLIC PANEL Routine 09/05/2024 2:26 PM EST Blurred vision HEPATITIS C SCREENING Routine 04/17/2022 LIPID PANEL Routine 09/23/2021 HIV SCREENING Routine 08/28/2017 from Last 3 Months or Most Recently Relevant to Health Maintenance Results * Vascular US duplex lower extremity venous right (02/15/2025 9:15 AM EDT) Anatomical Region Laterality Modality Vascular, Abdomen Ultrasound Historical Provider CV VASCULAR PROCEDURES Fi nal Result * [id number], RSV, Influenza A and B qualitative RT-PCR (01/17/2025 10:09 AM EDT) SARS COV-2 Not Detected Not Detected LAB MOLECULAR DIAGNOSTICS METHOD 01/18/2025 12:[address] [facility] Comment: Disclaimer: The manner in which this information is used to guide patient care is the responsibility of the healthcare provider. Testing was performed using the Yob[employer] Alinity m SARS-CoV-2 test. This test has [...] for Healthcare Providers can be found at: https://www.fda.gov/media/382384/download Fact sheet for Patients can be found at: https://www.fda.gov/media/232728/download Influenza A PCR Not Detected Not Detected LAB MOLECULAR DIAGNOSTICS METHOD 01/18/2025 12:05 AM EDT [facility] Influenza B PCR Not Detected Not Detected LAB MOLECULAR DIAGNOSTICS METHOD 01/18/2025 12:05 AM EDT [facility] RSV PCR Not Detected Not Detected LAB MOLECULAR DIAGNOSTICS METHOD 01/18/2025 12:05 AM EDT [facility] Swab Nasopharyngeal structure / Unknown Non-blood Collection / Unknown 01/17/2025 10:09 AM EDT 01/17/2025 10:09 AM EDT Barb JOSE LAB MICROBIOLOGY - GENERAL OR DERABLES Final Result [facility] [address] [place] [address], * MG Mammo Digital Screening w Ruben bilat (11/21/2024 10:11 AM EST) Anatomical Region Laterality Modality Breast Bilateral Mammography 11/21/2024 7:28 PM EST Impressions 11/21/2024 7:31 PM EST 1. No mammographic evidence of malignancy 2. Scattered fibroglandular tissue BI-RADS CATEGORY: 2 - BENIGN RECOMMENDATION: Screening bilateral mammogram is recommended in 1 year. Mammo Location: [facility], [address] [place] [address], [address], . -------- FINAL REPORT -------- Dictated By: Sabiha Conroy Dictated Date: 11/21/2024 19:28 ET Assigned Physician: Sabiha Conroy Reviewed and Electronically Signed By: Sabiha Conroy Signed Date: 11/21/2024 19:31 ET Workstation ID: [id number] Transcribed By: Self Edit Transcribed Date: 11/21/2024 [...] is recommended in 1 year. Mammo Location: [facility], [address] [place] [address], [address], . -------- FINAL REPORT -------- Dictated By: Sabiha Conroy Dictated Date: 11/21/2024 19:28 ET Assigned Physician: Sabiha Conroy Reviewed and Electronically Signed By: Sabiha Conroy Signed Date: 11/21/2024 19:31 ET Workstation ID: [id number] Transcribed By: Self Edit Transcribed Date: 11/21/2024 19:28 ET Martha Garcia CNM IMG BI PROCEDURES Final Resul t * COLONOSCOPY Anesthesia - MAC; [facility] ENDOSCOPY [...] ? Metamucil. Narrative 09/28/2024 4:00 PM EST [facility] Patient Name: Shweta Mcclain Procedure Date: 09/28/2024 3:26 PM Date of [...] Procedure Code(s): ? --- Professional --- ? 83322, Colonoscopy, flexible; with removal of ? tumor(s), polyp(s), or other lesion(s) by snare ? technique Diagnosis Code(s): ? --- Professional --- ? Z86.010, Personal history of colonic polyps ? K64.0, First degree hemorrhoids ? D12.4, Benign neoplasm of descending colon ? K57.30, Diverticulosis of large intestine without ? perforation or abscess without bleeding CPT copyright 2020 [employer]. All rights reserved. The codes documented in this report are preliminary and upon tower dragline operator review may be revised to meet current compliance requirements. Kai Nj MD 09/28/2024 4:00:13 PM This report has been signed electronically.Kai Nj MD Number of Addenda: 0 Note Initiated On: 09/28/2024 3:26 PM Scope In: Scope Out: ? Endoscopy Department at [facility] - [address] [place] [address], ? [place] [address] Procedure Note Kai Nj MD - 09/28/2024 [facility] Patient Name: Shweta Mcclain Procedure Date: 09/28/2024 3:26 PM Date of [...] was minimal. Procedure Code(s): --- Professional --- 30080, Colonoscopy, flexible; with removal of tumor(s), polyp(s), or other lesion(s) by snare technique Diagnosis Code(s): --- Professional --- Z86.010, Personal history of colonic polyps K64.0, First degree hemorrhoids D12.4, Benign neoplasm of descending colon K57.30, Diverticulosis of large intestine without perforation or abscess without bleeding CPT copyright 2020 [employer]. All rights reserved. The codes documented in this report are preliminary and upon tower dragline operator reviewmay be revised to meet current compliance requirements. Kai Nj MD 09/28/2024 4:00:13 PM This report has been signed electronically.Kai Nj MD Number of Addenda: 0 Note Initiated On: 09/28/2024 3:26 PM Scope In: Scope Out: Endoscopy Department at [facility] - [address] [place] [phone] IMPRESSION: - Diverticulosis in the sigmoid colon. [...] mmol/L LAB CHEMISTRY METHOD 09/05/2024 4:56 PM EST [facility] Potassium 4.7 3.5 - 5.5 mmol/L LAB CHEMISTRY METHOD 09/05/2024 4:56 PM EST [facility] Chloride 106 96 - 110 mmol/L LAB CHEMISTRY METHOD 09/05/2024 4:56 PM EST [facility] CO2 27 21 - 32 mmol/L LAB CHEMISTRY METHOD 09/05/2024 4:56 PM [facility] Anion Gap 7 3 - 11 LAB CHEMISTRY METHOD 09/05/2024 4:56 PM [facility] Glucose 88 70 - 100 mg/dL LAB CHEMISTRY METHOD 09/05/2024 4:56 PM [facility] BUN 21 5 - 25 mg/dL LAB CHEMISTRY METHOD 09/05/2024 4:56 PM [facility] Creatinine 1.06 0.50 - 1.10 mg/dL LAB CHEMISTRY METHOD 09/05/2024 4:56 PM [facility] eGFR 60 >=60 mL/min/1. 73m2 LAB CHEMISTRY METHOD 09/05/2024 4:56 PM [facility] Comment:Calculation based on the??Chronic Kidney Disease Epidemiology Collaboration (CKD-EPI) equation refit??without adjustment for race. BUN/Creatinine Ratio 19.8 LAB CHEMISTRY METHOD 09/05/2024 4:56 PM [facility] Calcium 10.1 8.5 - 10.5 mg/dL LAB CHEMISTRY METHOD 09/05/2024 4:56 PM [facility] Blood Venous blood specimen / Unknown Venipuncture / Unknown 09/05/2024 2:26 PM EST 09/05/2024 2:26 PM EST Jak Hinojosa MD LAB BLOOD ORDERABLES Final Resu lt [facility] [address] [place] [address], * Hepatitis C Screening (04/17/2022) Pathologist [facility] Hepatitis C Screening Abstracted Historical Provider HEALTH MAINTENANCE Final Result * (ABNORMAL) Lipid panel (09/23/2021) Pathologist [facility] LDL/HDL Ratio 4 0 - 4 Triglycerides 158(A) 0 - 150 mg/dL Cholesterol 217(A) 0 - 200 mg/dL HDL 51 >=40 mg/dL LDL Cholesterol 135(A) 0 - 100 mg/dL Blood Venous blood specimen / Unknown Historical Provider LAB BLOOD ORDERABLES [place] l Result * HIV Screening (08/28/2017) Pathologist [facility] HIV Screening Abstracted Historical Provider HEALTH MAINTENANCE Final Result from Last 3 Months or Most Recently Relevant to Health Maintenance Insurance 09-[address] [place] [address] [facility] Care Teams [employer] Core Transformer Assembler Relationship Specialty Start Date End Date Jak Hinojosa MD [address] [place] [id number] PCP - General Internal Medicine 10/04/14
== END 2025-03-14 09:43 | disposition home or self-care (01) ==
LOC: HO.RHE 09:08
PROVIDERS: PCP Internal Medicine; Visit Provider Student in an Organized Health Care Education/Training Program
DX: M1A.09X0 Idiopathic chronic gout, multiple sites, without tophus (tophi) (principal)
CPT/HCPCS: 99214; G2211

== ENCOUNTER 2025-03-17 10:03 | Outpatient (AMB) | payer OTHER, SELFPAY ==
--- NOTE | 2025-03-17 10:13 | MHC.OFFVIS ---
Vital Signs 03/17/25 10:23 Height 4 ft 11 in Weight 254 lb 10.142 oz BMI 51.4 BP 134/82 Blood Pressure Location Rt brachial Position Sitting Pulse 98 Pulse Source Pulse Oximeter Pulse Oximetry (%) 98 Oxygen Delivery Method Room Air Intake Visit Reasons: follow up/ booked per MD req Intake Note: Patient presents for Gout follow up. Allergies azithromycin [AZITHROMYCIN] Allergy (Unknown, Verified 03/17/25 10:22) UNKNOWN Penicillins [PENICILLINS] Allergy (Unknown, Verified 03/17/25 10:22) SEIZURE Medication List - Last Reconciled 03/17/25 by Emely Estes MD acetaminophen (Tylenol Extra Strength) 500 mg PO Q6H PRN albuterol sulfate 90 mcg/actuation (ProAir HFA) 2 puffs inhalation Q6H PRN albuterol sulfate mg inhalation allopurinol 300 mg PO BID 90 days cetirizine 10 mg PO DAILY citalopram 40 mg PO DAILY clonazepam 1 mg PO BEDTIME PRN diclofenac sodium 1% 4 grams topical QID fluticasone propion-salmeterol 115-21 mcg/actuation (Advair HFA) 2 puffs inhalation BID fluticasone propionate 50 mcg/actuation 2 sprays intranasal DAILY leg brace (Knee Brace Large-XLarge) Apply to knee, especially right during prolong activities such as walking. levothyroxine 75 mcg PO DAILY lisinopril 10 mg PO DAILY Magic Mouthwash Diphen/Lido/Antacid 1:1:1 10 mL PO BID omeprazole 20 mg PO DAILY prednisone 5 mg PO DAILY quetiapine 50 mg PO BEDTIME rizatriptan mg PO zolpidem 10 mg PO BEDTIME PRN HPI Comments Details: Patient is a 59-year-old morbidly obese female with non crystal proven gout, hypertension, hypothyroidism and polyarticular osteoarthritis (knees, hands) who presents today for urgent visit for left foot pain Interval History: Patient last seen 03/14/2025 with me. At that time she was here for an urgent visit for left foot pain. Exam was consistent with gout. She was given an IM injection of 60 mg of Kenalog due to stomach upset from doses of steroids given in the emergency department. Her uric acid was also not at goal and so she was increased from allopurinol 300 mg daily to 300 mg twice a day Today she is here for follow up, Doing better overall but still having some difficulty at the base of the 3rd metatarsal Rheumatologic History: Non crystal proven gout Polyarticular osteoarthritis involving knees and hands Current Rheumatology Medication(s): Allopurinol 300 mg bid Prednisone not taking due to GI upset [facility] Medical History (Updated 03/17/25 @ 11:18 by Emely Estes MD) Current use of steroid medication Trigger finger of all digits of both hands Carpal tunnel syndrome on both sides Surgical History History of cholecystectomy History of hysterectomy History of appendectomy Social History Household Members Other:: lives alone Housing: Apartment Are you a primary patient centered care specialist to a significant other at home: No Do you presently have visiting nurse or other home services: No 75 years or older and lives alone: No Alcohol intake: never Patient Tobacco Use Status: Never used Tobacco e-Cigarette/Vaping Use: Never Used service: No Current occupational status: disabled Cognitive needs: No Hearing needs: No Vision needs: Yes Review of Systems Const Details: Review of Systems Constitutional: Denies fever, chills, weight loss ENT: Denies vision changes, eye pain or eye redness, dental caries, dry mouth GI: Denies nausea, vomiting, diarrhea, abdominal pain, change in BM Pulm: Denies SOB, LOPEZ, hemoptysis, wheezing Cards: Denies chest pain, palpitations Skin: Denies Raynaud's, rash, nail changes, photosensitivity, BIODIESEL PROCESS CONTROL TECHNICIAN: Denies headaches, weakness, paresthesias, recurrent falls MSK: as per HPI All other systems reviewed and are unremarkable except noted above Physical Exam Vital Signs: Last Vital Signs Pulse 98 03/17/25 10:23 BP 134/82 03/17/25 10:23 Pulse Ox 98 03/17/25 10:23 Oxygen Delivery Method Room Air 03/17/25 10:23 BMI result Body Mass Index 51.4 MSK The foot swelling improved but tenderness to palpation at the base of the 3rd metatarsal Results Reviewed Results Reviewed: Laboratory Tests 12/06/24 03/14/25 15:17 10:06 WBC 7.6 RBC 4.68 Hgb 13.8 Hct 43.0 Plt Count 302 D ESR 37 H Sodium 138 Potassium 5.2 H Chloride 105 Carbon Dioxide 28 BUN 18 H Creatinine 0.93 Uric Acid 6.6 H 6.3 H Calcium 10.0 D AST 19 ALT 21 Alkaline Phosphatase 89 C-Reactive Protein 1.80 H Total Protein 8.1 H Assessment & Plan Assessment & Plan (1) Gout: Comment: Allopurinol therapy - stopped due oral ulcers Colchicine - stopped due to diarrhea Code(s): M10.9 - Gout, unspecified Category: Medical Qualifiers: Gout site: multiple sites Gout etiology: idiopathic Chronicity: chronic Presence of tophus: without tophus Qualified Code(s): M1A.09X0 - Idiopathic chronic gout, multiple sites, without tophus (tophi) Plan: #Non crystal proven gout Patient is a 59-year-old female with non crystal proven gout here today for follow up for left foot pain after Kenalog IM injection. Patient is doing better today. I expect that she will continue to improve over the next several days. Her primary stopped her hydrochlorothiazide which could definitely be contributing to her gout Plan - allopurinol 300mg bid - prednisone 5mg daily for prolphylaxis - RTC 3 months - Labs before visit: CBC, CMP, ESR, CRP, UA (2) Encounter for monitoring allopurinol therapy: Code(s): Z51.81 - Encounter for therapeutic drug level monitoring; Z79.899 - Other jail (current) drug therapy Plan: #Long-term Current Use of Allopurinol Risks and benefits of allopurinol discussed with patient Benefits include decreased gout flares, remission of gout and reduction of tophi Risks include allopurinol hypersensitivity syndrome which is a severe cutaneous adverse reaction associated with allopurinol use particularly in patients who are HLA B*5801 positive, increased transaminases, GI upset including diarrhea, nausea and vomiting, and other dermatologic manifestations. (3) senior living current use of systemic steroids: Code(s): Z79.52 - senior living (current) use of systemic steroids Plan: #Long-term Use of Steroids Discussed with patient the risks and benefits of steroid for managing the rheumatic condition Benefits include: - Reduced pain, improved mobility, increased participation in activities, and decreased progression of disease Risks include: - GI upset, potential ultrasound worsening or formation (especially in patients > 65 years old), elevated blood pressure/worsening hypertension, elevated blood sugar/worsening diabetes control, worsening of bone density, elevated lipids/worsening triglycerides, cataract formation, weight gain Recommended using proton pump inhibitors (PPIs) for the duration of steroid use to reduce the risk of gastric ulcers and vitamin-D daily to reduce the risk of osteoporosis Labs checked: ?A1c, T spot, hepatitis-B and C serologies Pneumocystis jiroveci prophylaxis: ?Patient with risk factors including steroids greater than 50 mg for more than 30 days, age greater than 60 years, and lung involvement from underlying rheumatic disease requires prophylaxis and will be given so Plan I spent 20 minutes reviewing the record and labs, taking a history, examining the patient, discussing the treatment plan, ordering diagnostic work up and documenting in the medical record Orders: Orders Complete Blood Count Auto Diff 3 Months M1A.09X0 - Idiopathic chronic gout, multiple sites, without tophus (tophi) C Reactive Protein 3 Months M1A.09X0 - Idiopathic chronic gout, multiple sites, without tophus (tophi) Erythrocyte Sedimentation Rate 3 Months M1A.09X0 - Idiopathic chronic gout, multiple sites, without tophus (tophi) Comprehensive Met. Panel 3 Months M1A.09X0 - Idiopathic chronic gout, multiple sites, without tophus (tophi) Uric Acid 3 Months M1A.09X0 - Idiopathic chronic gout, multiple sites, without tophus (tophi) Medications: Changed From prednisone 2.5 mg PO DAILY 90 tabs 1RF M10.9 - Gout, unspecified To prednisone 5 mg PO DAILY 90 tabs 1RF M10.9 - Gout, unspecified Coding Level of Care Code Est Pt Level 3 (13213) Diagnoses Idiopathic chronic gout of multiple sites without tophus M1A.09X0 Gout site: multiple sites Gout etiology: idiopathic Chronicity: chronic Presence of tophus: without tophus Encounter for monitoring allopurinol therapy Z51.81; Z79.899 molded candles wicker current use of systemic steroids Z79.52
--- OUTSIDE RECORDS SUMMARY | 2025-03-17 10:18 | XMS_ITS | Encounter Summary ---
Author Organization [employer] Address [address] [place] [address] Care Team Providers Care Academic Counselor Name Role Phone Jak Hinojosa MD Primary Care Provider [phone] Reason for Referral * Consultation (Routine) - Pending Review Specialty Diagnoses / Procedures Referred By Breanna lofton Referred To Contact Allergy Diagnoses Allergic dermatitis Donya Ricardo MD [address] [place] [address] Phone: tel: fax: Referral ID Status Reason Start Date Expiration Date Visits Requested Visits Authorized [id number] Pending Review Specialty Services Required 03/16/2025 03/16/2026 1 1 Reason for Visit * Reason Comments Hospital Follow-up Hypertension Encounter Details Date Type Department Care Team (Late st Contact Info) Description 03/16/2025 9:15 AM EDT Office Visit Adult Medicine [address] [phone] Donya Ricardo MD [address] [place] [address] Acute gout of left foot, unspecified cause (Primary Dx); Primary hypertension; Oral aphthous ulcer; Allergic dermatitis Social History Tobacco Use Types Packs/Day Years [...] Sign Reading Time Taken Comments Blood Pressure 124/71 03/16/2025 9:17 AM EDT Pulse 66 03/16/2025 8:51 AM EDT Temperature 35.9 ??C (96.6 ??F) 03/16/2025 8:51 AM ED T Respiratory Rate 18 03/16/2025 8:51 AM EDT Oxygen Saturation 99% 03/16/2025 8:51 AM EDT Inhaled Oxygen Concentration - - Weight 117 kg (257 lb 4.8 oz) 03/16/2025 8:51 AM EDT Height 149.9 cm (4' 11 ) 03/16/2025 8:51 AM EDT Body Mass Index 51.97 03/16/2025 8:51 AM EDT documented in this encounter Ordered Prescriptions Prescription Sig Dispense Quantity Refills Last Filled Start Date End Date loratadine (CLARITIN) 10 mg tablet Take 1 tablet (10 mg total) by mouth 1 (one) time each day. 90 each 1 03/16/2025 gabapentin (NEURONTIN) 100 mg capsule Take 1 capsule (100 mg total) by mouth 3 (three) times a day. 90 capsule 1 03/16/2025 documented in this encounter Progress Notes * Donya Ricardo MD - 03/16/2025 9:15 AM EDT Chief Complaint: Chief Complaint Patient presents with Hospital Follow-up Hypertension IDENTIFIER: Shweta Alarcon is a 59 y.o. old female HPI She comes for post ER evaluation. She has hypertension, known gouty arthritis, GE reflux, hypothyroidism. She was seen at the ER on March 06 due to acute onset of pain in her left foot which was felt to be secondary to acute gout. She had a negative x-ray and was started on a prednisone taper. She was seen yesterday by rheumatology, was having GI upset secondary to the prednisone which was discontinued and she was given an injection of Kenalog, does have a recheck appointment tomorrow. She was supposed to be on febuxostat but has been taking allopurinol for the gout and she says she was told toincrease it to twice daily although this is not documented in the note. She is still having ongoingpain in her foot. She has had a rash on both arms, has been itchy and scratching, evidence of dermatographia some is seen. Her blood pressure today initially was elevated but improved with repeat testing. She has been taking ibuprofen for her foot pain, blood pressure has been controlled with lisinopril and hydrochlorothiazide. We did discuss hydrochlorothiazide could potentially be contributing somewhat to the gout and she will discontinue this. She states that she is continuing to have the aphthous ulcer in her mouth since her appointment in December, was referred to oral surgery but states she was not out reach to make an appointment. ROS: General: No malaise, significant weight loss or fever Respiratory: No cough, wheezing or shortness of breath Cardiovascular: No chest pain, palpitations, no orthopnea Musc as noted Past Medical History: Patient Active Problem List Diagnosis Date Noted Sinus tachycardia 01/24/2025 Palpitation 01/24/2025 Arthralgia 11/16/2024 Carpal tunnel syndrome 11/16/2024 Chronic constipation 11/16/2024 Costochondritis 11/16/2024 Cyst of ovary 11/16/2024 Gastritis due to Helicobacter species 11/16/2024 Genital herpes simplex 11/16/2024 Low back pain 11/16/2024 Mass of uterine adnexa 11/16/2024 Morbid obesity (CMS/[facility] V24, CMS/[facility] V28) 11/16/2024 Severe obesity (CMS/HCC V24, CMS/[facility] V28) 11/16/2024 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 11/16/2024 Synovial cyst of knee 11/16/2024 Tubular adenoma of colon 11/16/2024 Venous thrombosis 11/16/2024 Morbid obesity with BMI of 50.0-59.9, adult ([facility] V24, [facility] V28) 08/16/2024 Allergic rhinitis 01/30/2021 Prediabetes 03/30/2019 Gout 01/11/2019 Varicose veins with pain 09/27/2018 Hemorrhoids 10/23/2016 Fatty liver 10/22/2016 Fibromyalgia 12/24/2015 Migraine 11/28/2015 Hypothyroidism 08/13/2015 Depressive disorder 12/11/2014 Asthma 11/19/2014 Colon polyp 11/19/2014 GERD (gastroesophageal reflux disease) 11/19/2014 Hypertension 11/19/2014 Obstructive sleep apnea 11/19/2014 Bulimia nervosa 12/04/2010 Plantar fasciitis 01/19/2008 Surgical History: Past Surgical History: Procedure Laterality Date APPENDECTOMY CARPAL TUNNEL RELEASE : trigger finger release and CTS CHOLECYSTECTOMY COLONOSCOPY 11/12/2018 : negative HYSTERECTOMY OTHER SURGICAL HISTORY PROCEDURE: ---- HEMORRHOIDS ---- OTHER SURGICAL HISTORY : ID TENOLYSIS EXTENSOR TENDON HAND/FINGER EACH OTHER SURGICAL HISTORY oophrectomy, unilateral Family History: Family History Problem Relation Name Age of Onset Colon cancer Mother dx'd age 25 60s; arthritis, breast cancer Arthritis Father Colon cancer Brother 35 Breast cancer Mother's side 3 cousins, all maternal Breast cancer Other m. aunts x 3 Ovarian cancer Neg Hx Uterine cancer Neg Hx Social History: Social History Tobacco Use Smoking status: Never Smokeless tobacco: Never Substance Use Topics Alcohol use: No Allergies: Azithromycin, Penicillins, Levofloxacin, and Naproxen Medications: Outpatient Medications Marked as Taking for the 03/16/25 encounter (Office Visit) with Donya Ricardo MD Medication Sig Dispense Refill acetaminophen (TYLENOL) 500 mg tablet Take 1 Tab by mouth every 6 hours as needed for Pain for up to 14 days. albuterol 2.5 mg /3 mL (0.083 %) nebulizer solution Take 1 Vial by nebulization every 4 hours as needed for Wheezing for up to 30 days albuterol sulfate (ProAir RespiClick) 90 mcg/actuation aerosol powdr breath activated Inhale 180 mcg by mouth every 4 (four) hours. 1 each 3 allopurinoL (ZYLOPRIM) 300 mg tablet Take 1 tablet (300 mg total) by mouth 2 (two) times a day. citalopram (CeleXA) 40 mg tablet Take 1 tablet (40 mg total) by mouth 1 (one) time each day. clonazePAM (KlonoPIN) 0.5 mg tablet Take 1 tablet (0.5 mg total) by mouth 2 (two) times a day. diclofenac (VOLTAREN) 1 % topical gel APPLY 4 GRAMS TOPICALLY FOUR TIMES A DAY TO BILATERAL KNEES fluticasone propion-salmeteroL (ADVAIR HFA) 115-21 mcg/actuation inhaler Inhale 2 puffs by mouth 2 (two) times a day. Rinse mouth with water after use to reduce aftertaste and incidence of candidiasis. Do not swallow. fluticasone propionate (FLONASE) 50 mcg/actuation nasal spray Administer 2 sprays into each nostril1 (one) time each day. 16 g 1 gabapentin (NEURONTIN) 100 mg capsule Take 1 capsule (100 mg total) by mouth 3 (three) times a day.90 capsule 1 ibuprofen (ADVIL,MOTRIN) 600 mg tablet Take 1 Tablet by mouth 2 times daily for 7 days. levothyroxine (SYNTHROID, LEVOTHROID) 75 mcg tablet TAKE ONE TABLET BY MOUTH EVERY DAY BEFORE BREAKFAST 90 tablet 1 Lidocaine Pain Relief 4 % patch APPLY 1 PATCH TOPICALLY ONCE DAILY. DO NOT LEAVE PATCH ON FOR MORE THAN 12 HOURS AT A TIME lisinopriL (PRINIVIL,ZESTRIL) 10 mg tablet TAKE ONE TABLET BY MOUTH EVERY DAY 90 tablet 1 LORazepam (ATIVAN) 0.5 mg tablet Take 1 tablet (0.5 mg total) by mouth every 6 (six) hours if needed for anxiety. meclizine (ANTIVERT) 25 mg tablet Take 1 tablet (25 mg total) by mouth 3 (three) times a day if needed for dizziness. QUEtiapine (SEROquel) 50 mg tablet Take 1 tablet (50 mg total) by mouth at bedtime. Ventolin HFA 90 mcg/actuation inhaler Inhale 2 puffs by mouth every 4 (four) hours if needed for wheezing or shortness of breath. 18 g 3 zolpidem (AMBIEN) 10 mg tablet Take by mouth at bedtime as needed for sleep. [DISCONTINUED] allopurinoL (ZYLOPRIM) 300 mg tablet Take 400 mg by mouth 1 (one) time each day. [DISCONTINUED] gabapentin (NEURONTIN) 100 mg capsule TAKE ONE CAPSULE BY MOUTH THREE TIMES A DAY FOR 15 DAYS [DISCONTINUED] predniSONE (DELTASONE) 2.5 mg tablet Take 1 tablet (2.5 mg total) by mouth 1 (one) time each day. Medication Discontinued/Reordered: Medications Discontinued During This Encounter Medication Reason allopurinoL (ZYLOPRIM) 300 mg tablet predniSONE (DELTASONE) 2.5 mg tablet hydroCHLOROthiazide (HYDRODIURIL) 25 mg tablet gabapentin (NEURONTIN) 100 mg capsule Reorder Vitals: Blood pressure 124/71, pulse 66, temperature 35.9 ??C (96.6 ??F), temperature source Temporal, resp. rate 18, height 1.499 m (59 ), weight 117 kg (257 lb 4.8 oz), SpO2 99%. Body mass index is 51.97 kg/m??.Plan is deferred until next visit Physical Exam: General: patient is in no acute distress. Aphthous ulcer seen inside the right cheek. Neck supple without adenopathy, no thyromegaly. Lungs clear with auscultation. Heart: regular S1S2 without murmur, rub or gallop. Extremities without cyanosis, clubbing or edema. Her left foot is exquisitely tender across the dorsum of the foot, no erythema or swelling seen. Marked discomfort with movement of her toes. Dermatographia some seen on both arms. Labs: Rheumatology note, ER records reviewed Impression: 1. Acute gout of left foot, unspecified cause 2. Primary hypertension 3. Oral aphthous ulcer 4. Allergic dermatitis Assessment and Plan: She is given the oral surgery phone number, referral has been approved and she is asked to call them to schedule an appointment regarding the persistent ulcer. She does have dermatographia some and arm itching, likely allergic to something, possibly a medication, she will stop the hydrochlorothiazide given the gout and use lisinopril only for her blood pressure, to use Claritin for allergic symptoms and is referred as well to see allergy. She did get a cortisone injection yesterday through rheumatology and will be seeing them tomorrow for repeat evaluation of the gout and further management. She otherwise will be continuing on her baseline regimen. Continue to monitor her blood pressure andshe will work with rheumatology regarding medications for the gout. documented in this encounter Plan of Treatment Upcoming Encounters Date Type Department Care Team (Late st Contact Info) Description 05/23/2025 10:00 AM EDT Ancillary Procedure [facility] Cardiology [facility] [address] [place] [address] 06/27/2025 10:20 AM EDT Office Visit [facility] Cardiology [address] [place] [address] Sivakumar Tijerina MD [address] [place] [address] [address] [place] [address] 09/15/2025 2:30 PM EST Office Visit Pulmonolgy - [place] [address] [place] [address] Inderjit Paez MD [address] [place] [address] Scheduled Referrals Name Type Priority Associated Diagnoses Order Schedule Ambulatory referral to Allergy Outpatient Referral Routine Allergic dermatitis 1 Occurrences starting 03/16/2025 until 03/16/2026 documented as of this encounter Visit Diagnoses Diagnosis Acute gout of left foot, unspecified cause- Primary Primary hypertension Unspecified essential hypertension Oral aphthous ulcer Oral aphthae Allergic dermatitis Contact dermatitis and other eczema, due to unspecified cause documented in this encounter Discontinued Medications Medication Sig Discontinue Reason Start Date End Da te allopurinoL (ZYLOPRIM) 300 mg tablet Take 400 mg by mouth 1 (one) time each day. 03/16/2025 predniSONE (DELTASONE) 2.5 mg tablet Take 1 tablet (2.5 mg total) by mouth 1 (one) time each day. 09/02/2024 03/16/2025 hydroCHLOROthiazide (HYDRODIURIL) 25 mg tablet Take 1 tablet (25 mg total) by mouth 1 (one) time each day. 09/05/2024 03/16/2025 gabapentin (NEURONTIN) 100 mg capsule TAKE ONE CAPSULE BY MOUTH THREE TIMES A DAY FOR 15 DAYS Reorder 10/12/2024 03/16/2025 documented as of this encounter Historical Medications * This list may reflect changes made after this encounter. allopurinoL (ZYLOPRIM) 300 mg tablet Take 1 tablet (300 mg total) by mouth 2 (two) times a day. 03/16/2025 added in this encounter Care Teams Academic Counselor Relationship Specialty Start Date End Date Jak Hinojosa MD [address] [place] [id number] PCP - General Internal Medicine 10/04/14 documented as of this encounter
[2025-03-17 10:23] VITALS: BP 134/82; PULSE 98; O2SAT 98; BMI 51.4
== END 2025-03-17 10:57 | disposition home or self-care (01) ==
LOC: HO.RHE 10:04
PROVIDERS: PCP Internal Medicine; Visit Provider Student in an Organized Health Care Education/Training Program
DX: M1A.09X0 Idiopathic chronic gout, multiple sites, without tophus (tophi) (principal); Z51.81 Encounter for therapeutic drug level monitoring; Z79.899 Other long term (current) drug therapy; Z79.52 Long term (current) use of systemic steroids
CPT/HCPCS: 99213

== ENCOUNTER → 2025-03-17 10:03 | Outpatient (BNVA) | payer OTHER, SELFPAY | PROVIDERS: PCP Internal Medicine; Visit Provider Student in an Organized Health Care Education/Training Program | DX: M1A.09X0 Idiopathic chronic gout, multiple sites, without tophus (tophi) (principal); M15.9 Polyosteoarthritis, unspecified; E66.01 Morbid (severe) obesity due to excess calories; Z51.81 Encounter for therapeutic drug level monitoring; Z79.52 Long term (current) use of systemic steroids; Z68.43 Body mass index [BMI] 50.0-59.9, adult; Z79.899 Other long term (current) drug therapy | CPT/HCPCS: 99212 ==

== ENCOUNTER 2025-07-13 15:38 | Outpatient (AMB) | payer OTHER, SELFPAY ==
--- OUTSIDE RECORDS SUMMARY | 2025-07-10 16:15 | XMS_ITS | Encounter Summary ---
Author Organization [employer] Address [address] [place] [address] Care Team Providers Care Mosaicist Name Role Phone Jak Hinojosa MD Primary Care Provider [phone] Reason for Referral * Consultation (Urgent) - Authorized Specialty Diagnoses / Procedures Referred By Contact Referred To Contact Podiatry / Orthopaedic Surgery Diagnoses Mass of right foot Donya Ricardo MD [address] [place] [address] Phone: tel: fax: Orthopedic Surgery [facility] [address] [place] [phone] Phone: tel: fax: Referral ID Status Reason Start Date Expiration Date Visits Requested Visits Authorized [id number] Authorized Specialty Services Required 07/10/2025 07/10/2026 1 1 Reason for Visit * Reason Comments Hypertension Mass R foot Encounter Details Date Type Department Care Team ([facility] st Contact Info) Description 07/10/2025 4:15 PM EDT Office Visit Adult Medicine [address] [phone] Donya Ricardo MD [address] [place] [address] Mass of right foot (Primary Dx); Prediabetes; Primary hypertension; Hypothyroidism, unspecified type Social History Tobacco Use Types Packs/Day Years [...] Sign Reading Time Taken Comments Blood Pressure 146/80 07/10/2025 3:57 PM EDT Pulse 83 07/10/2025 3:57 PM EDT Temperature - - Respiratory Rate 18 07/10/2025 3:57 PM EDT Oxygen Saturation 98% 07/10/2025 3:57 PM EDT Inhaled Oxygen Concentration - - Weight 118 kg (260 lb 9.6 oz) 07/10/2025 3:57 PM EDT Height 149.9 cm (4' 11 ) 07/10/2025 3:57 PM EDT Body Mass Index 52.63 07/10/2025 3:57 PM EDT documented in this encounter Progress Notes * Donya Ricardo MD - 07/10/2025 4:15 PM EDT Chief Complaint: Chief Complaint Patient presents with Hypertension Mass R foot IDENTIFIER: Shweta Alarcon is a 60 y.o. old female HPI She comes for evaluation accompanied by her daughter complaining of a painful soft tissue mass on her right lateral foot. She notes it has been present for several years and has been getting increasingly painful over the last month. She was seen last month and felt to have an infected cyst, was treated with clindamycin which she states did help. She is not having any drainage, denies any injury to the area. She did have an x-ray last month showing mild arthritis. She has hypertension, prediabetes, her blood pressure is elevated today even with repeat testing. She is continuing on chronic anticoagulation and is able to use only Tylenol for discomfort. She is taking levothyroxine for her thyroid as well as blood pressure control with lisinopril and continues on albuterol inhaler, Ambien, Seroquel, gabapentin. ROS: General: No malaise, significant weight loss or fever Respiratory: No cough, wheezing or shortness of breath Cardiovascular: No chest pain, palpitations, no orthopnea Past Medical History: Patient Active Problem List Diagnosis Date Noted Primary osteoarthritis of right foot 05/26/2025 Palpitation 01/24/2025 Arthralgia 11/16/2024 Carpal tunnel syndrome 11/16/2024 Chronic constipation 11/16/2024 Costochondritis 11/16/2024 Cyst of ovary 11/16/2024 Gastritis due to Helicobacter species 11/16/2024 Genital herpes simplex 11/16/2024 Low back pain 11/16/2024 Mass of uterine adnexa 11/16/2024 Morbid obesity ([facility] V24, [facility] V28) 11/16/2024 Severe obesity (CMS/HCC V24, CMS/[facility] V28) 11/16/2024 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 11/16/2024 Synovial cyst of knee 11/16/2024 Tubular adenoma of colon 11/16/2024 Venous thrombosis 11/16/2024 Morbid obesity with BMI of 50.0-59.9, adult (CMS/[facility] V24, CMS/[facility] V28) 08/16/2024 Allergic rhinitis 01/30/2021 Prediabetes 03/30/2019 [...] ---- HEMORRHOIDS ---- OTHER SURGICAL HISTORY : [place] TENOLYSIS EXTENSOR TENDON HAND/FINGER EACH OTHER SURGICAL [...] Outpatient Medications Marked as Taking for the 07/10/25 encounter (Office Visit) with Donya Ricardo MD Medication Sig Dispense Refill acetaminophen (TYLENOL) 500 mg tablet Take 1 Tab by mouth every 6 hours as needed for Pain for up to 14 days. albuterol 2.5 mg /3 mL (0.083 %) nebulizer solution Take 3 mL (2.5 mg total) by nebulization every 4 (four) hours if needed for wheezing. Take 1 Vial by nebulization every 4 hours as needed for Wheezing for up to 30 days 300 mL 3 albuterol sulfate (ProAir RespiClick) 90 mcg/actuation aerosol powdr breath activated Inhale 180 mcg by mouth every 4 (four) hours. 1 each 3 allopurinoL (ZYLOPRIM) 300 mg tablet Take 1 tablet (300 mg total) by mouth 2 (two) times a day. apixaban (ELIQUIS) starter pack Take 2 tablets (10 mg total) by mouth 2 (two) times a day for 7 days. Then take 1 tablet (5 mg total) by mouth 2 (two) times a day. 74 tablet 0 cetirizine (ZyrTEC) 10 mg tablet [...] (three) times a day.90 capsule 1 ibuprofen (IBU) 600 mg tablet Take 1 tablet (600 mg total) by mouth 2 (two) times a day if needed for moderate pain. 30 tablet 0 levothyroxine (SYNTHROID, LEVOTHROID) 75 mcg tablet TAKE ONE TABLET BY MOUTH EVERY DAY BEFORE BREAKFAST 90 tablet 1 Lidocaine Pain Relief 4 % patch APPLY 1 PATCH TOPICALLY ONCE DAILY. DO NOT LEAVE PATCH ON FOR MORE THAN 12 HOURS AT A TIME lisinopriL (PRINIVIL,ZESTRIL) 10 mg tablet TAKE ONE TABLET BY MOUTH EVERY DAY 90 tablet 1 loratadine (CLARITIN) 10 mg tablet Take 1 [...] times a day if needed for dizziness. psyllium (Metamucil, with sugar,) 3.4 gram packet Take 1 packet by mouth 2 (two) times a day. Mix and drink with at least 8 ounces of water or juice. 60 packet 11 QUEtiapine (SEROquel) 50 mg tablet Take 1 tablet (50 mg total) by mouth at bedtime. Ventolin HFA 90 mcg/actuation inhaler Inhale 2 puffs by mouth every 4 (four) hours if needed for wheezing or shortness of breath. 18 g 3 zolpidem (AMBIEN) 10 mg tablet Take by mouth at bedtime as needed for sleep. Medication Discontinued/Reordered: There are no discontinued medications. Vitals: Blood pressure (!) 146/80, pulse 83, resp. rate 18, height 1.499 m (59 ), weight 118 kg (260 lb 9.6oz), SpO2 98%. Body mass index is 52.63 kg/m??.Plan is deferred until next visit Physical Exam: General: patient is in no acute distress. Neck supple without adenopathy, no thyromegaly. Lungs clear with auscultation. Heart: regular S1S2 without murmur, rub or gallop. Extremities without cyanosis, clubbing or edema. There is a tender soft tissue mass on the lateral right foot on the dorsum ofthe foot, it is not erythematous. Labs: Foot x-ray showed arthritis Impression: 1. Mass of right foot 2. Prediabetes 3. Primary hypertension 4. Hypothyroidism, unspecified type Assessment and Plan: She is referred to podiatry given the painful soft tissue mass on her foot, x- ray has already been done. She does have the prediabetes and hypertension, blood pressure remains elevated even with repeat testing, she will continue on her blood pressure regimen, to use Tylenol, warm soaks, does have the lidocaine patch and Voltaren to use for discomfort. We did discuss that pain can raise her blood pressure but she is asked to be very careful on a low-salt diet and return to be seen in her primarycare team in 1 to 2 weeks for repeat evaluation of her blood pressure and adjustment of her regimen. She is declining repeat course of antibiotics today. documented in this encounter Plan of Treatment Upcoming Encounters Date Type Department Care Team (Late st Contact Info) Description 07/21/2025 9:45 AM EDT Office Visit Orthopedic Surgery [facility] [address] [facility] [address] [place] [address] John Erazo DPOnel [address] [facility] 250 [place] [phone] 07/21/2025 2:00 PM EDT Office Visit Vascular Surgery - [place] [address] [place] [address] Vanita Santos PA [address] [facility] [address] [place] [address] 07/25/2025 3:00 PM EDT Office Visit Adult Medicine [facility] [address] [place] [address] Madison Bello NP [address] [place], [place] 08/07/2025 3:30 PM EDT Office Visit Pulmonolgy [facility] [address] [facility] 200 [place] [phone] Inderjit Paez MD 175 [facility] [address] [place] [address] Scheduled Referrals Name Type Priority Associated Diagnoses Order Schedule Ambulatory referral to Podiatry Outpatient Referral Routine Mass of right foot 1 Occurrences starting 07/10/2025 until 07/10/2026 documented as of this encounter Visit Diagnoses Diagnosis Mass of right foot- Primary Prediabetes Other abnormal glucose Primary hypertension Unspecified essential hypertension Hypothyroidism, unspecified type documented in this encounter Care Teams Mosaicist Relationship Specialty Start Date End Date Jak Hinojosa MD [address] [place] [phone] PCP - General Internal Medicine 10/04/14 documented as of this encounter
--- NOTE | 2025-07-13 15:46 | A.OFFVIS_ITS ---
Vital Signs 07/13/25 15:52 Height 4 ft 11 in Weight 259 lb 11.272 oz BMI 52.4 BP 142/80 H Blood Pressure Location Rt radial Position Sitting Pulse 96 Pulse Source Pulse Oximeter Pulse Oximetry (%) 98 Oxygen Delivery Method Room Air Intake Visit Reasons: follow up Intake Note: Patient presents for Gout follow up. Patient stated she is having a Gout flare on her RT toe. Allergies azithromycin (AZITHROMYCIN) Allergy (Unknown, Verified 07/13/25 15:50) UNKNOWN Penicillins (PENICILLINS) Allergy (Unknown, Verified 07/13/25 15:50) SEIZURE HPI Comments Details: Patient is a 60-year-old morbidly obese female with non crystal proven gout, hypertension, hypothyroidism and polyarticular osteoarthritis (knees, hands) who presents today for urgent visit for left foot pain Interval History: Patient last seen 03/17/2025 with me. - On Allopurinol 300mg bid - Not on prednisone due to GI upset - Doing better overall but still having some difficulty at the base of the 3rd metatarsal Today - On Allopurinol 300mg bid - Complaining of right foot lateral swelling, has appointment with podiatry - Right shoulder pain - No further gout flares Rheumatologic History: Non crystal proven gout Polyarticular osteoarthritis involving knees and hands Current Rheumatology Medication(s): Allopurinol 300 mg bid [facility] Medical History (Updated 07/13/25 @ 15:56 by Emely Estes MD) Current use of steroid medication Trigger finger of all digits of both hands Carpal tunnel syndrome on both sides Surgical History History of cholecystectomy History of hysterectomy History of appendectomy Social History Household Members Other:: lives alone Housing: Apartment Are you a primary healthcare business analyst to a significant other at home: No Do you presently have visiting nurse or other home services: No 75 years or older and lives alone: No Alcohol intake: never Patient Tobacco Use Status: Never used Tobacco e-Cigarette/Vaping Use: Never Used service: No Current occupational status: disabled Cognitive needs: No Hearing needs: No Vision needs: Yes Review of Systems Const Details: Review of Systems Constitutional: Denies fever, chills, weight loss ENT: Denies vision changes, eye pain or eye redness, dental caries, dry mouth GI: Denies nausea, vomiting, diarrhea, abdominal pain, change in BM Pulm: Denies SOB, LOPEZ, hemoptysis, wheezing Cards: Denies chest pain, palpitations Skin: Denies Raynaud's, rash, nail changes, photosensitivity, [employer]: Denies headaches, weakness, paresthesias, recurrent falls MSK: as per HPI All other systems reviewed and are unremarkable except noted above Physical Exam Exam Exam: Vital signs reviewed Physical Examination CONSTITUITIONAL Patient alert and cooperative. Well appearing and in no apparent painful distress MSK Hands * Right Hand: Able to make a fist. No swelling or tenderness to palpation of the MCPs, PIPs or DIPs. * Left Hand: Able to make a fist. No swelling or tenderness to palpation of the MCPs, PIPs or DIPs Wrists * Right Wrist: Full ROM to flexion and extension. No swelling or TTP * Left Wrist: Full ROM to flexion and extension. No swelling or TTP Elbows * Right Elbow: Full ROM. No swelling or TTP. No TTP of the medial epicondyle. No TTP of the lateral epicondyle * Left Elbow: Full ROM. No swelling or TTP. No TTP of the medial epicondyle. No TTP of the lateral epicondyle Shoulders * Right shoulder: Full ROM. No swelling noted. No TTP of the AC joint. TTP of the subacromial bursa. No TTP of the posterior shoulder * Left shoulder: Full ROM. No swelling noted. No TTP of the AC joint. No TTP of the subacromial bursa. No TTP of the posterior shoulder Knees * Right knee: Full ROM. No swelling noted. No TTP of the knee joint line. No TTP of pes anserine bursa * Left knee: Full ROM. No swelling noted. No TTP of the knee joint line. No TTP of pes anserine bursa. * Crepitations felt bilaterally Ankles * Right ankle: Good ankle dorsiflexion and plantar flexion. No swelling. No TTP of the ankle joint * Left ankle: Good ankle dorsiflexion and plantar flexion. No swelling. No TTP of the ankle joint Feet * Right foot: swelling noted to the lateral foot with swelling and erythema. There is some punctate lesions noted * Left foot: swelling noted to the lateral foot over the 5th MTP. No TTP Tender points? * No tenderness to palpation of the bilateral trapezius, supraspinatus, anterior costochondral junctions, bilateral suboccipital muscle insertions SKIN No rashes Vital Signs: Last Vital Signs Pulse 96 07/13/25 15:52 BP 142/80 H 07/13/25 15:52 Pulse Ox 98 07/13/25 15:52 Oxygen Delivery Method Room Air 07/13/25 15:52 BMI result Body Mass Index 52.4 Office Procedures AMB Joint Injection/Aspiration Joint Injection/Aspiration Details: Procedure was explained to the patient and informed consent was obtained. ? Risks associated with the procedure were discussed with the patient including but not limited to bleeding, infection, drug reactions and reactions to the topical anesthetic. Patient made aware of signs to look out for infectious complications. The area of interest was identified and confirmed with patient. ?This was subsequently cleaned with chlorhexidine x 2. ? The area was then anesthetized using ethyl chloride spray. 40 mg Kenalog with 1 cc 1% lidocaine was injected without issue. ?Minimal to no bleeding. ?Patient tolerated procedure. Primary Site: right shoulder (right subacromial bursa) Prep: site was prepped using aseptic technique and ethochloride spray was applied Injected: 40 mg of, Kenalog, with 1 mL of, 1% plain lidocaine and in the subcromial space Procedure: The patient tolerated the procedure well Coding 78699 - Glenohumeral/Tronchanteric Bursa/Intraarticular Procedure code (CPT) selection complete Office Meds lidocaine (PF) 10 mg/mL (1 %) injection solution Performing Provider: Emely Estes MD Performing Location: [facility] Administered by: Sidney Davis RN on 07/13/25 16:18 Dose Route Admin Location Dispensed Lot Number Expiration Date [facility] Wearing [employer] Shaker 1 mL Infiltration right subacromial bursa 2 mL [id number] 01/23/27 63 [phone] [employer] Total Dispensed Waste 2 mL 50 % Kenalog 40 mg/mL suspension for injection Performing Provider: Emely Estes MD Performing Location: [facility] Administered by: Sidney Davis RN on 07/13/25 16:18 Dose Route Admin Location Dispensed Lot Number Expiration Date [facility] Wearing [employer]arel Shaker 40 mg intrabursal right subacromial bursa 1 mL [id number] 04/24/27 70 [phone] [employer] Total Dispensed Waste 1 mL 0 % Results Reviewed Results Reviewed: 06/19/25 [facility] WBC 6.6 Hb 13.1 Plt 218 BUN 12 Cr 0.86 eGFR 77 AST 15 ALT 14 Uric Acid 4.4 ESR 41 H CRP 15 H Assessment & Plan Assessment & Plan (1) Gout: Comment: Allopurinol therapy - stopped due oral ulcers Restarted 10/2024 Colchicine - stopped due to diarrhea Code(s): M10.9 - Gout, unspecified Category: Medical Qualifiers: Chronicity: chronic Gout etiology: idiopathic Gout site: multiple sites Presence of tophus: without tophus Qualified Code(s): M1A.09X0 - Idiopathic chronic gout, multiple sites, without tophus (tophi) Plan: #Non crystal proven gout Patient is a 60-year-old female with non crystal proven gout here today for follow up No further gout flares, uric acid at goal Follow up podiatry visit Plan - Allopurinol 300mg bid - stop prednisone - RTC 6 months - Labs before visit: CBC, CMP, ESR, CRP, UA (2) Subacromial bursitis of right shoulder joint: Code(s): M75.51 - Bursitis of right shoulder Plan: #Subacromial bursitis S/p steroid injection to the right subacromial bursa (3) Encounter for monitoring allopurinol therapy: Code(s): Z51.81 - Encounter for therapeutic drug level monitoring; Z79.899 - Other half-way (current) drug therapy Plan: #Long-term Current Use of Allopurinol Risks and benefits of allopurinol discussed with patient Benefits include decreased gout flares, remission of gout and reduction of tophi Risks include allopurinol hypersensitivity syndrome which is a severe cutaneous adverse reaction associated with allopurinol use particularly in patients who are HLA [id number] positive, increased transaminases, GI upset including diarrhea, nausea and vomiting, and other dermatologic manifestations. Plan I spent 20 minutes reviewing the record and labs, taking a history, examining the patient, discussing the treatment plan, ordering diagnostic work up and documenting in the medical record Orders: Orders AMB Joint Injection/Aspiration Today M75.51 - Bursitis of right shoulder Coding Level of Care Code Est Pt Level 4 (01673) Complex EM visit Add On G2211 Diagnoses Idiopathic chronic gout of multiple sites without tophus M1A.09X0 Chronicity: chronic Gout etiology: idiopathic Gout site: multiple sites Presence of tophus: without tophus Subacromial bursitis of right shoulder joint M75.51 Encounter for monitoring allopurinol therapy Z51.81; Z79.899 CPT Codes Coding - Joint 7: 52751 - Glenohumeral/Tronchanteric Bursa/Intraarticular ([id number])
[2025-07-13 15:52] VITALS: BP 142/80; PULSE 96; O2SAT 98; BMI 52.4
--- OUTSIDE RECORDS SUMMARY | 2025-07-13 16:55 | XMS_ITS | Clinical Summary ---
Author Organization [facility] [employer] Address [address] [place] [address] Phone Care Team Providers Care Resource Conservation Manager Name Role Phone Jak Hinojosa MD Primary Care Provider [phone] Allergies Active Allergy Reactions Criticality Noted Date Comments Azithromycin Nausea And Vomiting,Rash High 5 Abdominal pain. Levofloxacin Swelling Medium 07/23/2018 Naproxen Swelling Low 05/20/2023 face Penicillins Seizures High 08/03/2024 Medications fluticasone propion-salmete roL (ADVAIR HFA) 115-21 mcg/actuation inhaler Inhale 2 puffs by mouth 2 (two) times a day. Rinse mouth with water after use to reduce aftertaste and incidence of candidiasis. Do not swallow. Active citalopram (CeleXA) 40 mg tablet Take [...] at bedtime as needed for sleep. Active diclofenac (VOLTAREN) 1 % topical gel APPLY 4 GRAMS TOPICALLY FOUR TIMES A DAY TO BILATERAL KNEES 4 Active Lidocaine Pain Relief 4 % patch APPLY 1 PATCH TOPICALLY ONCE DAILY. DO NOT LEAVE PATCH ON FOR MORE THAN 12 HOURS AT A TIME 4 Active meclizine (ANTIVERT) 25 mg tablet Take 1 tablet (25 mg total) by mouth 3 (three) times a day if needed for dizziness. 4 Active albuterol sulfate (ProAir RespiClick) 90 mcg/actuation aerosol powdr breath activated Inhale 180 mcg by mouth every 4 (four) hours. 1 each 3 5 12/20/19 26 Active Ventolin HFA 90 mcg/actuation inhaler Inhale 2 puffs by mouth every 4 (four) hours if needed for wheezing or shortness of breath. 18 g 3 5 12/22/19 26 Active fluticasone propionate (FLONASE) 50 mcg/actuation nasal spray Administer 2 sprays into each nostril 1 (one) time each day. 16 g 1 5 Active lisinopriL (PRINIVIL,ZESTR IL) 10 mg tablet TAKE ONE TABLET BY MOUTH EVERY DAY 90 tablet 1 5 Active allopurinoL (ZYLOPRIM) 300 mg tablet Take 1 tablet (300 mg total) by mouth 2 (two) times a day. 5 Active gabapentin (NEURONTIN) 100 mg capsule Take 1 capsule (100 mg total) by mouth 3 (three) times a day. 90 capsule 1 5 Active loratadine (CLARITIN) 10 mg tablet Take 1 tablet (10 mg total) by mouth 1 (one) time each day. 90 each 1 5 Active cetirizine (ZyrTEC) 10 mg tablet Take 1 tablet (10 mg total) by mouth 1 (one) time each day. 90 tablet 1 5 09/19/20 25 Active albuterol 2.5 mg /3 mL (0.083 %) nebulizer solution Take 3 mL (2.5 mg total) by nebulization every 4 (four) hours if needed for wheezing. Take 1 Vial by nebulization every 4 hours as needed for Wheezing for up to 30 days 300 mL 3 5 04/20/20 26 Active ibuprofen (IBU) 600 mg tabletIndicatio ns:Foot pain, right Take 1 tablet (600 mg total) by mouth 2 (two) times a day if needed for moderate pain. 30 tablet 5 Active apixaban (ELIQUIS) starter pack Take 2 tablets (10 mg total) by mouth 2 (two) times a day for 7 days. Then take 1 tablet (5 mg total) by mouth 2 (two) times a day. 74 tablet 5 Active psyllium (Metamucil, with sugar,) 3.4 gram packet Take 1 packet by mouth 2 (two) times a day. Mix and drink with at least 8 ounces of water or juice. 60 packet 11 5 06/07/20 26 Active levothyroxine (SYNTHROID, LEVOTHROID) 75 mcg tablet TAKE ONE TABLET BY MOUTH EVERY DAY BEFORE BREAKFAST 90 tablet 1 5 Active Active Problems Problem Noted Date Diagnosed Date Primary osteoarthritis of right foot 05/26/2025 Palpitation 01/24/2025 Arthralgia 11/16/2024 Carpal tunnel syndrome 11/16/2024 Chronic constipation 11/16/2024 Costochondritis 11/16/2024 Cyst of ovary 11/16/2024 Gastritis due to Helicobacter species 11/16/2024 Genital herpes simplex 11/16/2024 Low back pain 11/16/2024 Mass of uterine adnexa 11/16/2024 Morbid obesity (CMS/HCC V24, CMS/[facility] V28) 2024 Severe obesity (CMS/HCC V24, CMS/HCC V28) 2024 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 2024 Overview (11/16/2024): PPD -12 mm 02/19/2012 Synovial cyst of knee 11/16/2024 Tubular adenoma of colon 11/16/2024 Overview (11/16/2024): by colonoscopy 02/06 Venous thrombosis 11/16/2024 Morbid obesity with BMI of 5 0.0-59.9, adult ([facility] V24, [facility] V28) 08/16/2024 Allergic rhinitis 01/30/2021 Prediabetes 03/30/2019 Assessment & Plan (05/26/2025 11:45 AM EDT): Will update A1c Orders: Hemoglobin A1c; Future Gout 01/11/2019 Varicose veins with pain 09/27/2018 Hemorrhoids 10/23/2016 Overview (08/03/2024): s/p hemorrhoidectomy 02/06 at [facility] Fatty liver 10/22/2016 Overview (08/03/2024): Abdominal ultrasound 01/05;10/10 Fibromyalgia 12/24/2015 Migraine 11/28/2015 Hypothyroidism 08/13/2015 Depressive disorder 12/11/2014 Overview (08/16/2024): Depressive disorder, not elsewhere classified Asthma 11/19/2014 Assessment & Plan (05/26/2025 11:45 AM EDT): She will continue Advair twice daily and albuterol as needed. There is currently no evidence of asthma exacerbation at this time. X-rays ordered for evaluation of her pleuritic chest pain/dyspnea Orders: XR Chest 2 Views; Future Colon polyp 11/19/2014 Overview (08/03/2024): Tubular adenoma on 02/06 at [facility]; repeat in 5 years GERD (gastroesophageal reflux disease) 5 Hypertension 11/19/2014 Obstructive sleep apnea 11/19/2014 Overview (08/03/2024): [facility] [place] Polysomnogram: Date 12/29/2016; AHI 8, Unclassified [...] - CPAP @ 8 corrective. Bulimia nervosa ([facility] V28) 12/04/2010 Plantar fasciitis 01/19/2008 Resolved Problems Problem Noted Date Diagnosed Date Resolved Date Sinus tachycardia 01/24/2025 07/10/2025 Abdominal wall pain 11/16/2024 12/30/19 25 History of hysterectomy 11/16/2024/03/2025 Prolapse of vaginal vault after hysterectomy 12/29/2024 Cholecystitis 11/25/2021 12/28/2024 Overview (08/03/2024): S/p laparscopic cholecystetomy 11/23/21 [facility] ([place]) Breast pain 12/02/2011 12/29/2024 Encounters Date Type Department Care Team Description 07/10/2025 4:15 PM EDT Office Visit Adult Medicine [address] [phone] Donya Ricardo MD Mass of right foot (Primary Dx); Prediabetes; Primary hypertension; Hypothyroidism, unspecified type 07/10/2025 Telephone Adult Medicine [address] [phone] Jak Hinojosa MD 06/27/2025 Telephone [facility] [address] [place] [address] Jak Hinojosa MD 06/07/2025 11:00 AM EDT Office Visit Adult Medicine [address] [phone] Madison Bello NP SOB (shortness of breath) (Primary Dx); Acute deep vein thrombosis (DVT) of femoral vein of right lower extremity ([facility] V24, [facility] V28); Mild persistent asthma without complication; OLIVER on CPAP; Chronic constipation 05/29/2025 Telephone Adult Medicine [address] [phone] Jak Hinojosa MD 05/26/2025 1:45 PM EDT - 05/26/2025 7:36 PM EDT Emergency [facility] Emergency [address] [place] [address] Greg Moraes MD Goebel, Mathew, MD Wire, Jessica, MD Shortness of breath (Primary Dx); Acute deep vein thrombosis (DVT) of proximal vein of lower extremity, unspecified laterality ([facility] V24, [facility] V28) Discharge Disposition: Home or Self Care 05/26/2025 10:15 AM EDT - 05/26/2025 11:59 PM EDT Hospital Encounter [address] [phone] Mild persistent asthma with acute exacerbation; Dyspnea, unspecified type Discharge Disposition: Home or Self Care 05/26/2025 10:15 AM EDT - 05/26/2025 11:59 PM EDT Hospital Encounter [address] [phone] Foot pain, right Discharge Disposition: Home or Self Care 05/26/2025 9:30 AM EDT Office Visit Adult Medicine [address] [phone] Litzy Hernandez MD Foot pain, right (Primary Dx); Numbness and tingling of foot; Infected wound; Mild persistent asthma without complication; Dyspnea, unspecified type; Prediabetes; Leg vein thromboembolism, superficial, right 05/26/2025 Telephone [facility] [place] [facility] [place] [address] [place] [address] Litzy Hernandez MD 05/25/2025 Telephone Adult Medicine [facility] [address] [place] [address] Edward Amelia TERESA 05/23/2025 10:00 AM EDT Ancillary Procedure [facility] [address] [facility] [address] [place] [address] Varicose veins of both lower extremities with pain from Last 3 Months Immunizations Name Administration [...] release and CTS OTHER SURGICAL HISTORY : ME TENOLYSIS EXTENSOR TENDON HAND/FINGER EACH COLONOSCOPY 11/12/2018 : negative CHOLECYSTECTOMY OTHER SURGICAL HISTORY oophrectomy, unilateral Medical History Medical History Date Comments Hypertension 11/19/2014 Asthma 11/19/2014 GERD (gastroesophageal reflu x disease) 11/19/2014 Colon polyp 11/19/2014, 2022 Tubular adenoma 02/06; repeat 5 yrs Morbid obesity ([facility] V24, [facility] V28) 11/19/2014 Migraine 11/28/2015 Depression Fibromyalgia Sleep [...] Name Clin 1979 Term Onel Jung Delivery Location:[facility] o Comments:Uncomplicated 1980 Term F Aguila g Juliss a Delivery Location:[facility] Comments:Uncompl 1982 Term M Aguila stone Mateo Delivery Location:[facility] Comments:asthma attack s requiring hospitalization 1983 25w 0d F Decea sed Vaness a Delivery Location:[facility] Comments:Born early, l ived 22 days 1984 Term F Aguila stone Caridad Delivery Location:[facility] Comments:uncompl 1985 Term M Aguila stone Erich Delivery Location:[facility] Comments:uncomplicated Last Filed Vital Signs Vital Sign Reading Time Taken Comments Blood Pressure 146/80 07/10/2025 3:57 PM EDT Pulse 83 07/10/2025 3:57 PM EDT Temperature 35.9 C (96.7 F) 06/07/2025 10:10 AM EDT Respiratory Rate 18 07/10/2025 3:57 PM EDT Oxygen Saturation 98% 07/10/2025 3:57 PM EDT Inhaled Oxygen Concentration - - Weight 118 kg (260 lb 9.6 oz) 07/10/2025 3:57 PM EDT Height 149.9 cm (4' 11 ) 07/10/2025 3:57 PM EDT Body Mass Index 52.63 07/10/2025 3:57 PM EDT Plan of Treatment Upcoming Encounters Date Type Department Care Team (Late st Contact Info) Description 07/21/2025 9:45 AM EDT Office Visit Orthopedic Surgery [facility] [address] [facility] [address] [place] [phone] John Erazo DPOnel 175 [facility] [address] [place] [address] 07/21/2025 2:00 PM EDT Office Visit Vascular Surgery [facility] 300 [facility] [address] [place] [address] Vanita Santos PA 300 [facility] [address] [place] [address] 07/25/2025 3:00 PM EDT Office Visit Adult Medicine [facility] [address] [place] [phone] Madison Bello, CORINNA [address] [place] [address] 08/07/2025 3:30 PM EDT Office Visit Pulmonolgy [facility] 175 [facility] [address] [place] [phone] Inderjit Paez MD 175 [facility] [address] [place] [address] Health Maintenance Due Date Last Done Comments Pneumococcal Vaccine: 50+ Years (1 of 2 - PCV) 1982 Cervical Cancer Screening: Pap Smear 1984 Zoster Vaccines (1 of 2) 2013 Social Influencers of Health Screening 10/04/2022 RSV Immunization Adult Patients (1 - Risk 60-74 years 1-dose series) 2023 Depression Screening 10/26/2024 COVID-19 Vaccine ( - 2023- season) 2025 Hypertension/CHF/CAD Annual BMP Blood Test 05/26/2026 05/26/2025, 09/05/2024, 06/03/2024, Additional history exists Cholesterol Screening (Lipid Panel) 09/23/2026 09/23/2021 Breast Cancer Screening 11/21/2026 11/21/2024, 12/25 DTaP,Tdap,and Td Vaccines (3 - Td or Tdap) 09/23/2031 09/23/2021, 11/27/2009 Colorectal Cancer Screening: Colonoscopy 09/28/2034 09/28/2024, 11/12/2018 HIV Screening Completed 08/28/2017 Hepatitis C Screening Completed 04/17/2022 Influenza Vaccine Completed 07/04/2025, , 09/16/2023, Additional history exists HIB Vaccines Aged Out [...] Procedure Name Priority Date/Time Associated Diagnosis Comments ECG ANNOTATED 05/27/2025 TROPONIN I HIGH SENSITIVITY STAT 05/26/2025 5:[address] ANGIO CHEST WO AND/OR W CONTRAST STAT 05/26/2025 3:55 PM EDT Shortness of breath Acute deep vein thrombosis (DVT) of proximal vein of lower extremity, unspecified laterality (CMS/HCC V24, CMS/HCC V28) [id number], RSV, FLU A AND B QUALITATIVE RT-PCR, INTERNAL LAB STAT 05/26/2025 2:22 PM EDT ECG 12-LEAD STAT 05/26/2025 1:30 PM EDT CBC WITH AUTO DIFFERENTIAL STAT 05/26/2025 1:27 PM EDT PROTHROMBIN TIME WITH INR STAT 05/26/2025 1:27 PM EDT COMPREHENSIVE METABOLIC PANEL STAT 05/26/2025 1:27 PM EDT CBC AND DIFFERENTIAL STAT 05/26/2025 1:27 PM EDT CBC WITH AUTO DIFFERENTIAL Routine 05/26/2025 10:40 AM EDT Dyspnea, unspecified type D-DIMER Routine 05/26/2025 10:40 AM EDT Dyspnea, unspecified type B-TYPE NATRIURETIC PEPTIDE Routine 05/26/2025 10:40 AM EDT Dyspnea, unspecified type CBC AND DIFFERENTIAL Routine 05/26/2025 10:40 AM EDT Dyspnea, unspecified type HEMOGLOBIN A1C Routine 05/26/2025 10:40 AM EDT Prediabetes VITAMIN B12 Routine 05/26/2025 10:40 AM EDT Numbness and tingling of foot FOLATE Routine 05/26/2025 10:40 AM EDT Numbness and tingling of foot THYROID STIMULATING HORMONE WITH REFLEX TO FREE T4 AND FREE T3 Routine 05/26/2025 10:40 AM EDT Numbness and tingling of foot XR FOOT 3+ VIEWS RIGHT Routine 05/26/2025 10:27 AM EDT Foot pain, right XR CHEST 2 VIEWS Routine 05/26/2025 10:2 7 AM EDT Mild persistent asthma with acute exacerbation Dyspnea, unspecified type VAS US DUPLEX LOWER EXT VENOUS INSUFFICIENCY BILATERAL Routine 05/23/2025 10:03 AM EDT Varicose veins of both lower extremities with pain MG MAMMO DIGITAL SCREENING W RUBEN BILAT Routine 11/21/2024 10:11 AM EST Encounter for well woman exam with routine gynecological exam Screening breast examination COLONOSCOPY Routine 09/28/2024 3:57 PM EST Family hx of colon cancer GERD (gastroesophageal reflux disease) RUQ pain HEPATITIS C SCREENING Routine 04/17/2022 LIPID PANEL Routine 09/23/2021 HIV SCREENING Routine 08/28/2017 from Last 3 Months or Most Recently Relevant to Health Maintenance Results * ECG-Annotated (05/27/2025) us Provider Onbase MD ECG ORDERABLES Final Result * Troponin I High Sensitivity (05/26/2025 5:47 PM EDT) High Sensitivity Troponin I 4 <=54 ng/L LAB CHEMISTRY METHOD 05/26/2025 6:36 PM EDT [facility] Blood Venous blood specimen / Unknown Venipuncture / Unknown 05/26/2025 5:47 PM EDT 05/26/2025 5:58 PM EDT Narrative [facility] [place] ([facility]) [facility] - 05/26/2025 6:36 PM EDT High levels of biotin in samples may falsely decrease hsTroponin values. Use caution when interpreting hsTroponin results in patients taking biotin who exhibit renal impairment (eGFR <60) or in patients taking more than 20 mg/day of biotin. us Jose L Ceron MD LAB BLOOD ORDERABLES Final Resu lt [facility] ([facility]) [facility] [address] [place] [address], [place] [phone] * CT Angio Chest wo and/or w Contrast (05/26/2025 3:55 PM EDT) Anatomical Region Laterality Modality Body Computed Tomogra phy 05/26/2025 4:17 PM EDT Impressions 05/26/2025 4:19 PM EDT No acute findings. -------- FINAL REPORT -------- Dictated By: Ruslan Payton Dictated Date: 05/26/2025 16:17 ET Assigned Physician: Ruslan Payton Reviewed and Electronically Signed By: Ruslan Payton Signed Date: 05/26/2025 16:19 ET Workstation ID: [id number] Transcribed By: Self Edit Transcribed Date: 05/26/2025 16:17 ET Narrative 05/26/2025 4:19 PM EDT PROCEDURE: CT ANGIO CHEST INDICATION: PE suspected, high prob COMPARISON: None. TECHNIQUE: CT pulmonary angiogram performed following uneventful IV administration of ISOVUE contrast material with bolus timing technique from the thoracic inlet through the lung bases. 3-D multiplanar reformations were obtained by the technologist on an independent workstation. ALENTY VCT dose reduction utilizing iterative reconstruction. Total exam DLP 870 (mGy-cm) FINDINGS: No acute pulmonary embolism. The heart is within normal limits in size. There is no pericardial effusion. The thoracic aorta is normal in caliber. There is no evidence for mediastinal or hilar lymphadenopathy. No consolidation There are no pleural effusions. The visualized portion of the upper abdomen demonstrates no acute findings however technique was not optimized for evaluation for more subtle lesions. Cholecystectomy. The included skeletal structures are within normal limits for technique. Procedure Note Ruslan Payton MD - 05/26/2025 PROCEDURE: CT ANGIO CHEST INDICATION: PE suspected, high prob COMPARISON: None. TECHNIQUE: CT pulmonary angiogram performed following uneventful IVadministration of ISOVUE contrast material with bolus timing techniquefrom the thoracic inlet through the lung bases. 3-D multiplanar reformations were obtained by the technologist on anindependent workstation. ALENTY VCT dose reduction utilizing iterative reconstruction. Total exam DLP 870 (mGy-cm) FINDINGS: No acute pulmonary embolism. The heart is within normal limits in size. There is no pericardialeffusion. The thoracic aorta is normal in caliber. There is no evidence for mediastinal or hilar lymphadenopathy. No consolidation There are no pleural effusions. The visualized portion of the upper abdomen demonstrates no acute findingshowever technique was not optimized for evaluation for more subtlelesions. Cholecystectomy. The included skeletal structures are within normal limits for technique. IMPRESSION: No acute findings. -------- FINAL REPORT -------- Dictated By: Ruslan Payton Dictated Date: 05/26/2025 16:17 ET Assigned Physician: Ruslan Payton Reviewed and Electronically Signed By: Ruslan Payton Signed Date: 05/26/2025 16:19 ET Workstation ID: [id number] Transcribed By: Self Edit Transcribed Date: 05/26/2025 16:17 ET Jose L Ceron MD [facility] CT PROCEDURES Final Result * [id number], RSV, Influenza A and B qualitative RT-PCR (05/26/2025 2:22 PM EDT) Influenza A PCR Not Detected Not Detected LAB MICROBIOLOGY METHOD 05/26/2025 4:01 PM EDT [facility] Influenza B PCR Not Detected Not Detected LAB MICROBIOLOGY METHOD 05/26/2025 4:01 PM EDT [facility] RSV PCR Not Detected Not Detected LAB MICROBIOLOGY METHOD 05/26/2025 4:01 PM EDT [facility] SARS COV-2 Not Detected Not Detected LAB MICROBIOLOGY METHOD 05/26/2025 4:01 PM EDT [facility] Swab Both anterior nares / Unknown Non-blood Collection / Unknown 05/26/2025 2:22 PM EDT 05/26/2025 2:58 PM EDT Narrative [facility] - 05/26/2025 4:01 PM EDT Disclaimer: Testing was performed using the [employer] GeneXpert Xpress SARS-CoV-2 _Flu_RSV PLUS PCR assay. The manner in which this information is used to guide patient care is the responsibility of the healthcare provider. Results should be correlated with the clinical history, epidemiological data, and other data available to the clinician evaluating the patient. Negative results do not preclude infection. This test has been authorized by the FDA under an Emergency Use Authorization (EUA). This test is only authorized for the duration of time the declaration that circumstances exist justifying the authorization of the emergency use of in vitro diagnostic tests for detection of SARS-CoV-2 virus and/or diagnosis of COVID-19 infection under section 564 (b) (1) of the Act, 21 U.S.C 360bbb-3 (b) (1), unless the authorization is terminated or revoked sooner. Reference Range: Not Detected Fact sheet for Healthcare providers can be found at https://www.fda.gov/media/914824/download. Fact sheet for Healthcare patients can be found at https://www.fda.gov/media/136795/download. us Jose L Ceron MD LAB MICROBIOLOGY - GENERAL CARLA YAÑEZ Final Result [facility] [address] [place] [address], * ECG 12 lead (05/26/2025 1:30 PM EDT) Ventricular Rate ECG 78 BPM GEMUSE Atrial Rate 78 BPM GEMUSE P-R Interval 162 ms GEMUSE QRS Duration 80 ms GEMUSE Q-T Interval 372 ms GEMUSE QTc 424 ms GEMUSE P Wave Avery 43 degrees GEMUSE R Avery 28 degrees GEMUSE T Avery 15 degrees GEMUSE ECG Interpretation Normal sinus rhythm Normal ECG When compared with ECG of 16-MAR-2023 16:05, No significant change was found Confirmed by Steve PEGUERO YUFENG ([id number]) on 05/26/2025 4:00:26 PM GEMUSE 05/26/2025 1:30 PM EDT 05/26/2025 4:00 PM EDT us Greg Moraes MD ECG ORDERABLES Final Result GEMUSE * (ABNORMAL) CBC auto differential (05/26/2025 1:27 PM EDT) Only the most recent of2 resultswithin the time period is included. WBC 7.8 4.8 - 10.8 K/mcL LAB HEMETOLOGY METHOD 05/26/2025 1:49 PM EDT [facility] RBC 4.50 3.80 - 4.80 M/mcL LAB HEMETOLOGY METHOD 05/26/2025 1:49 PM EDT [facility] Hemoglobin 13.3 11.5 - 16.0 g/dL LAB HEMETOLOGY METHOD 05/26/2025 1:49 PM EDT [facility] Hematocrit 42.2 35.0 - 47.0 % LAB HEMETOLOGY METHOD 05/26/2025 1:49 PM EDT [facility] MCV 93.0 79.0 - 98.0 FL LAB HEMETOLOGY METHOD 05/26/2025 1:49 PM EDT [facility] MCH 29.3 27.0 - 32.0 pcg LAB HEMETOLOGY METHOD 05/26/2025 1:49 PM EDT [facility] MCHC 31.5(L) 32.0 - 37.0 g/dL LAB HEMETOLOGY METHOD 05/26/2025 1:49 PM EDT [facility] RDW 14.6 11.0 - 15.0 % LAB HEMETOLOGY [facility]26[facility]2025 [facility] Platelets 238 130 - 400 K/mcL LAB HEMETOLOGY METHOD 05/26/2025 1:49 PM [facility] MPV 11.1(H) 7.0 - 11.0 FL LAB HEMETOLOGY METHOD 05/26/2025 1:49 PM EDT [facility] NRBC 0.0 <1.0 % LAB HEMETOLOGY METHOD 05/26/2025 1:49 PM [facility] NRBC Absolute 0.00 <0.10 K/mcL LAB HEMETOLOGY METHOD 05/26/2025 1:49 PM [facility] Neutrophils Relative 68.6 % LAB HEMETOLOGY METHOD 05/26/2025 1:49 PM [facility] Lymphocytes Relative 22.6 % LAB HEMETOLOGY METHOD 05/26/2025 1:49 PM [facility] Monocytes Relative 6.6 % LAB HEMETOLOGY METHOD 05/26/2025 1:49 PM [facility] Eosinophils Relative 1.4 % LAB HEMETOLOGY METHOD 05/26/2025 1:49 PM [facility] Basophils Relative 0.3 % LAB HEMETOLOGY METHOD 05/26/2025 1:49 PM [facility] Immature Granulocytes Relative 0.5 % LAB HEMETOLOGY METHOD 05/26[facility]2025 1:[facility] Neutrophils Absolute 5.38 1.50 - 7.00 K/mcL LAB HEMETOLOGY METHOD 05/26/2025 1:49 PM [facility] Lymphocytes Absolute 1.77 1.00 - 5.00 K/mcL LAB HEMETOLOGY METHOD 05/26/2025 1:49 PM EDT [facility] Monocytes Absolute 0.52 0.20 - 1.00 K/[facility] LAB HEMETOLOGY METHOD 05/26/2025 1:49 PM EDT [facility] Eosinophils Absolute 0.11 0.00 - 0.50 K/[facility] LAB HEMETOLOGY METHOD 05/26/2025 1:49 PM EDT [facility] Basophils Absolute 0.02 0.00 - 0.20 K/[facility] LAB HEMETOLOGY METHOD 05/26/2025 1:49 PM EDT [facility] Immature Granulocytes Absolute 0.04(H) 0.00 - 0.03 K/[facility] LAB HEMETOLOGY METHOD 05/26/2025 1:49 PM EDT [facility] Blood Venous blood specimen / Unknown Venipuncture / Unknown 05/26/2025 1:27 PM EDT 05/26/2025 1:41 PM EDT us Greg Moraes MD LAB BLOOD ORDERABLES Final Resul t Performing Organization Address City/[facility]/ZIP Co de Phone Number [facility] [address] [place] [address], [place] [phone] * Prothrombin time with INR (05/26/2025 1:27 PM EDT) Protime 11.0 10.6 - 13.9 sec LAB COAGULATION METHOD 05/26/2025 1:57 PM EDT [facility] INR 0.9 LAB COAGULATION METHOD 05/26/2025 1:57 PM EDT [facility] Blood Venous blood specimen / Unknown Venipuncture / Unknown 05/26/2025 1:27 PM EDT 05/26/2025 1:41 PM EDT us Greg Moraes MD LAB BLOOD ORDERABLES Final Resul t [facility] [address] [place] [address], * Comprehensive metabolic panel (05/26/2025 1:27 PM EDT) Sodium 138 133 - 145 mmol/L LAB CHEMISTRY METHOD 05/26/2025 2:18 PM EDT [facility] Potassium 4.7 3.5 - 5.5 mmol/L LAB CHEMISTRY METHOD 05/26/2025 2:18 PM T [facility] Chloride 105 96 - 110 mmol/L LAB CHEMISTRY METHOD 05/26/2025 2:18 PM [facility] CO2 30 21 - 32 mmol/L LAB CHEMISTRY METHOD 05/26/2025 2:18 PM [facility] Anion Gap 3 3 - 11 LAB CHEMISTRY METHOD 05/26/2025 2:18 PM [facility] Glucose 96 70 - 100 mg/dL LAB CHEMISTRY METHOD 05/26/2025 2:18 PM [facility] BUN 15 5 - 25 mg/dL LAB CHEMISTRY METHOD 05/26/2025 2:18 PM [facility] Creatinine 1.03 0.50 - 1.10 mg/dL LAB CHEMISTRY METHOD 05/26/2025 2:18 PM [facility] eGFR 62 >=60 mL/min/1. 73m2 LAB CHEMISTRY METHOD 05/26/2025 2:18 PM [facility] Comment:Calculation based on the Chronic Kidney Disease Epidemiology Collaboration (CKD-EPI) equation refit without adjustment for race. BUN/Creatinine Ratio 14.6 LAB CHEMISTRY METHOD 05/26/2025 2:18 PM [facility] Calcium 9.9 8.5 - 10.5 mg/dL LAB CHEMISTRY METHOD 05/26/2025 2:18 PM [facility] AST (SGOT) 16 10 - 42 unit/L LAB CHEMISTRY METHOD 05/26/2025 2:18 PM EDT [facility] ALT (SGPT) 28 10 - 60 unit/L LAB CHEMISTRY METHOD 05/26/2025 2:18 PM EDT [facility] Alkaline Phosphatase 102 42 - 121 unit/L LAB CHEMISTRY METHOD 05/26/2025 2:18 PM EDT [facility] Total Protein 7.7 6.0 - 8.0 g/dL LAB CHEMISTRY METHOD 05/26/2025 2:18 PM EDT [facility] Albumin 3.9 3.2 - 5.0 g/dL LAB CHEMISTRY METHOD 05/26/2025 2:18 PM EDT [facility] Total Bilirubin 0.3 0.0 - 1.4 mg/dL LAB CHEMISTRY METHOD 05/26/2025 2:18 PM EDT [facility] Blood Venous blood specimen / Unknown Venipuncture / Unknown 05/26/2025 1:27 PM EDT 05/26/2025 1:41 PM EDT Greg Moraes MD LAB BLOOD ORDERABLES Final Resul t Performing Organization Address City/[facility]/ZIP Co de Phone Number [facility] [address] [place] [address], [place] [phone] * Thyroid stimulating hormone with reflex to free t4 and free t3 (05/26/2025 10:40 AM EDT) TSH 2.73 0.40 - 4.00 mcIU/mL LAB CHEMISTRY METHOD 05/26/2025 4:11 PM EDT [facility] Blood Venous blood specimen / Unknown Venipuncture / Unknown 05/26/2025 10:40 AM EDT 05/26/2025 10:40 AM EDT Litzy Hernandez MD LAB BLOOD ORDERA BLES Final Result [facility] [address] [place] [address], [place] [phone] * (ABNORMAL) D-Dimer (05/26/2025 10:40 AM EDT) [facility] D-Dimer, Quant (D-DU) 1,029(H) <=230 ng/mL DDU LAB COAGULATION METHOD 05/26/2025 12:22 PM EDT [facility] Blood Venous blood specimen / Unknown Venipuncture / Unknown 05/26/2025 10:40 AM EDT 05/26/2025 10:40 AM EDT Narrative [facility] - 05/26/2025 12:22 PM EDT D-Dimer <230 ng/mL (D-Dimer units) is the threshold for exclusion of DVT/PE. D-Dimer may be elevated in: Critically ill, severely infected, trauma patients, DIC, acute CVA, acute [place], unstable angina, AF, old age, , and smoking. D-Dimer may be decreased with: Initiation of heparin therapy and oral anticoagulants. Litzy Hernandez MD LAB BLOOD ORDERA BLES Final Result Performing Organization Address City/[facility]/ZIP Co de Phone Number [facility] [address] [place] [address], [place] [phone] * B-type natriuretic peptide (05/26/2025 10:40 AM EDT) [facility] BNP 19 <=100 pcg/mL LAB CHEMISTRY METHOD 05/26/2025 1:09 PM EDT [facility] Blood Venous blood specimen / Unknown Venipuncture / Unknown 05/26/2025 10:40 AM EDT 05/26/2025 10:40 AM EDT Litzy Hernandez MD LAB BLOOD ORDERA BLES Final Result [facility] [address] [place] [address], [place] [phone] * Hemoglobin A1c (05/26/2025 10:40 AM EDT) [facility] Hemoglobin A1C 6.0 <6.5 % LAB CHEMISTRY METHOD 05/26/2025 11:01 PM EDT [facility] Mean Bld Glu Estim. 126 mg/dL LAB CHEMISTRY METHOD 05/26/2025 11:01 PM EDT [facility] Blood Venous blood specimen / Unknown Venipuncture / Unknown 05/26/2025 10:40 AM EDT 05/26/2025 10:40 AM EDT Litzy Hernandez MD LAB BLOOD ORDERA BLES Final Result [facility] [address] [place] [address], [place] [phone] * Folate (05/26/2025 10:40 AM EDT) [facility] Folate 7.8 2.8 - 17.0 ng/ml LAB CHEMISTRY METHOD 05/26/2025 5:14 PM EDT [facility] Blood Venous blood specimen / Unknown Venipuncture / Unknown 05/26/2025 10:40 AM EDT 05/26/2025 10:40 AM EDT Litzy Hernandez MD LAB BLOOD ORDERA BLES Final Result [facility] [address] [place] [address], [place] [phone] * (ABNORMAL) Vitamin B12 (05/26/2025 10:40 AM EDT) [facility] Vitamin B-12 154(L) 250 - 900 pcg/mL LAB CHEMISTRY METHOD 05/26/2025 5:14 PM EDT [facility] Blood Venous blood specimen / Unknown Venipuncture / Unknown 05/26/2025 10:40 AM EDT 05/26/2025 10:40 AM EDT Litzy Hernandez MD LAB BLOOD ORDERA BLES Final Result [facility] ([facility]) [facility] [address] [place] [address], [place] [phone] * XR Foot 3+ Views Right (05/26/2025 10:27 AM EDT) Anatomical Region Laterality Modality Lower Extremities, Foot Right Radiogra phic Imaging 05/26/2025 11:3 9 AM EDT Impressions 05/26/2025 11:44 AM EDT Minimal degenerative changes. Progressive calcaneal spurring. POS - [id number] -------- FINAL REPORT -------- Dictated By: Gisell Erickson Dictated Date: 05/26/2025 11:39 ET Assigned Physician: Gisell Erickson Reviewed and Electronically Signed By: Gisell Erickson Signed Date: 05/26/2025 11:44 ET Workstation ID: [id number] Transcribed By: Self Edit Transcribed Date: 05/26/2025 11:39 ET Narrative 05/26/2025 11:44 AM EDT EXAM: Right foot x-ray HISTORY: Right foot pain. COMPARISON: 03/29/2020 FINDINGS: 3 views were performed. Minimal degenerative changes at the first MTP joint. Minimal spurring at the dorsal aspect of the midfoot. No acute fracture or malalignment detected. No destructive bone lesion. Enlarging small to medium-sized posterior and plantar calcaneal spurs. Procedure Note Gisell Erickson MD - 05/26/2025 EXAM: Right foot x-ray HISTORY: Right foot pain. COMPARISON: 03/29/2020 FINDINGS: 3 views were performed. Minimal degenerative changes at the first MTP joint. Minimal spurring atthe dorsal aspect of the midfoot. No acute fracture or malalignmentdetected. No destructive bone lesion. Enlarging small to medium-sizedposterior and plantar calcaneal spurs. IMPRESSION: Minimal degenerative changes. Progressive calcaneal spurring. POS - [id number] -------- FINAL REPORT -------- Dictated By: Gisell Erickson Dictated Date: 05/26/2025 11:39 ET Assigned Physician: Gisell Erickson Reviewed and Electronically Signed By: Gisell Erickson Signed Date: 05/26/2025 11:44 ET Workstation ID: [id number] Transcribed By: Self Edit Transcribed Date: 05/26/2025 11:39 ET Litzy Hernandez MD IMG XR PROCEDURE S Final Result * XR Chest 2 Views (05/26/2025 10:27 AM EDT) Anatomical Region Laterality Modality Body Radiographic Chanda ging 05/26/2025 11:3 5 AM EDT Impressions 05/26/2025 11:39 AM EDT No evidence of an acute chest process. POS - [id number] -------- FINAL REPORT -------- Dictated By: Gisell Erickson Dictated Date: 05/26/2025 11:35 ET Assigned Physician: Gisell Erickson Reviewed and Electronically Signed By: Gisell Erickson Signed Date: 05/26/2025 11:39 ET Workstation ID: [id number] Transcribed By: Self Edit Transcribed Date: 05/26/2025 11:35 ET Narrative 05/26/2025 11:39 AM EDT EXAM: Chest x-ray HISTORY: Dyspnea. COMPARISON: 04/07/2015, 11/03/2023, and 06/03/2023 FINDINGS: PA and lateral views of the chest were performed. No focal infiltrate, pleural effusion, or evidence of pulmonary edema. No pneumothorax. Heart is not enlarged. Mediastinal contours are stable. Mild degenerative changes in the spine. Surgical clips in the right upper quadrant. Procedure Note Gisell Erickson MD - 05/26/2025 EXAM: Chest x-ray HISTORY: Dyspnea. COMPARISON: 04/07/2015, 11/03/2023, and 06/03/2023 FINDINGS: PA and lateral views of the chest were performed. No focal infiltrate, pleural effusion, or evidence of pulmonary edema. Nopneumothorax. Heart is not enlarged. Mediastinal contours are stable. Milddegenerative changes in the spine. Surgical clips in the right upperquadrant. IMPRESSION: No evidence of an acute chest process. POS - [id number] -------- FINAL REPORT -------- Dictated By: Gisell Erickson Dictated Date: 05/26/2025 11:35 ET Assigned Physician: Gisell Erickson Reviewed and Electronically Signed By: Gisell Erickson Signed Date: 05/26/2025 11:39 ET Workstation ID: [id number] Transcribed By: Self Edit Transcribed Date: 05/26/2025 11:35 ET us Litzy Hernandez MD IMG XR PROCEDURE S Final Result * Vascular US duplex lower extremity venous insufficiency bilateral (05/23/2025 10:03 AM EDT) Left GSK romeo 0.29 cm CV VAS LAB Left GSDC romeo 0.23 cm CV VAS LAB Left GSMT romeo 0.47 cm CV VAS LAB Left GSPC romeo 0.30 cm CV VAS LAB Left GSPT romeo 0.43 cm CV VAS LAB Left SFJ Diameter 0.59 cm CV VAS LAB Right GSK romeo 0.43 cm CV VAS LAB Right GSDC romeo 0.15 cm CV VAS LAB Right GSMT romeo 0.54 cm CV VAS LAB Right GSPC romeo 0.17 cm CV VAS LAB Right GSPT romeo 0.39 cm CV VAS LAB Right SFJ Diameter 0.70 cm CV VAS LAB Right SSMC romeo 0.10 cm CV VAS LAB Right SSPC romeo 0.15 cm CV VAS LAB Right GSPT reflux 4,500 ms CV VAS LAB Right GSMT reflux 4,495 ms CV VAS LAB Right AAS romeo 0.28 cm CV VAS LAB Left GSPC reflux 4,511 ms CV VAS LAB Left GSDC reflux 767 ms CV VAS LAB Anatomical Region Laterality Modality Vascular, Abdomen Ultrasound Narrative 05/23/2025 7:55 PM EDT Technically difficult study. RIGHT: 1. There is no evidence of a DVT in the right lower extremity 2. There is evidence of a nonocclusive superficial vein thrombosis in the right GSV at the thigh and knee level. Of note, a superficial vein thrombosis of the GSV at the knee level was also described in the report of a right lower extremity venous ultrasound done on 02/13/2025 at [facility]. As such, the noted superficial vein thrombosis of the GSV may be chronic in nature. However, unable to evaluate if there has been any change/propagation of the superficial vein thrombosis on serial studies given absence of images of the previous study in order to make a direct comparison. 3. The SFJ, femoral vein, popliteal vein and SSV are competent 4. The GSV has clinically significant reflux as described below. 5. There is a branch of the GSV/varicose vein at the knee level with clinically significant reflux as described below. 6. The Right saphenopopliteal junction was not identified. LEFT: 1. There is no evidence of a DVT in the left lower extremity. 2. The SFJ, femoral vein, popliteal vein are competent 3. The GSV has clinically significant reflux as described below. 4. The Left small saphenous vein and saphenopopliteal junction were not identified. Right Lower Venous Known non-occlusive thrombus in the right great saphenous vein from upper thigh down to knee. No evidence of deep vein thrombosis in the common femoral, deep femoral, proximal femoral, mid femoral, distal femoral, popliteal, small saphenous, posterior tibial and peroneal veins of the right leg. The vessels showed compressibility. Interrogation showed phasic and spontaneous Doppler signals. Right Venous Insufficiency Duplex The exam was performed with the patient in reverse Trendelenburg. Right saphenopopliteal junction was not identified. GSV branches/varicose veins refluxing at: Knee: 4.5 sec (0.38 cm), originating off from GSV at knee. Left Lower Venous No evidence of deep vein thrombosis in the common femoral, deep femoral, proximal femoral, mid femoral, distal femoral, popliteal, greater saphenous, small saphenous, posterior tibial and peroneal veins of the left leg. The vessels showed compressibility. Interrogation showed phasic and spontaneous Doppler signals. Left Venous Insufficiency Duplex The exam was performed with the patient in reverse trendelenburg. Left small saphenous vein and saphenopopliteal junction were not identified. Bar Assistant Details A pickett scale, color and doppler analysis ultrasound was performed. During the study longitudinal and transverse views were obtained. Continuous wave doppler and pulsed wave doppler was performed. Overall the study quality was poorly visualized and technically difficult. Study was technically difficult due to: body habitus. us Palma JOSE CV VASCULAR PROCEDURES Final Result * MG Mammo Digital Screening w Ruben bilat (11/21/2024 10:11 AM EST) Anatomical Region Laterality Modality Breast Bilateral Mammography 11/21/2024 7:28 PM EST Impressions 11/21/2024 7:31 PM EST 1. No mammographic evidence of malignancy 2. Scattered fibroglandular tissue BI-RADS CATEGORY: 2 - BENIGN RECOMMENDATION: Screening bilateral mammogram is recommended in 1 year. Mammo Location: [facility], [address] [place] [address], [id number], . -------- FINAL REPORT -------- Dictated By: Sabiha Conroy Dictated Date: 11/21/2024 19:28 ET Assigned Physician: Sabiha Conroy Reviewed and Electronically Signed By: Sabiha Conroy Signed Date: 11/21/2024 19:31 ET Workstation ID: [id number] Transcribed By: Self Edit Transcribed Date: 11/21/2024 19:28 ET Narrative 11/21/2024 7:31 PM EST A BILATERAL DIGITAL 3D SCREENING MAMMOGRAPHY HISTORY: Routine screening. Family history of breast cancer in mother. COMPARISON: Mammogram from 12/25/2020 Technique: Bilateral full field digital mammography (3D) was performed using standard CC and MLO projections CAD was [...] is recommended in 1 year. Mammo Location: [facility], [address] [place] [address], [address], . -------- FINAL REPORT -------- Dictated By: Sabiha Conroy Dictated Date: 11/21/2024 19:28 ET Assigned Physician: Sabiha Conroy Reviewed and Electronically Signed By: Sabiha Conroy Signed Date: 11/21/2024 19:31 ET Workstation ID: [id number] Transcribed By: Self Edit Transcribed Date: 11/21/2024 19:28 ET [facility]ED[facility] Final Resul t * COLONOSCOPY Anesthesia - MAC; [facility] ENDOSCOPY (09/28/2024 3:57 PM EST) Anatomical Region Laterality Modality Other 09/28/2024 3:26 PM EST Impressions 09/28/2024 4:00 PM EST - Diverticulosis in the sigmoid colon. - Internal hemorrhoids. - One 4 mm polyp in the descending colon, removed with a cold snare. Resected and retrieved. Recommendation: - Repeat colonoscopy in 5 years for surveillance. - Await pathology results. - Use fiber, for example Citrucel, Fibercon, Konsyl or Metamucil. Narrative 09/28/2024 4:00 PM EST [facility] GI Patient Name: Shweta Mcclain Procedure Date: 09/28/2024 3:26 PM Date of : 1965 Age: 59 Gender: Female Note Status: Finalized Attending MD: Kai Nj MD, Procedure Date No Time: 09/28/2024 Procedure: Colonoscopy Indications: High risk colon cancer surveillance: Personal history of colonic polyps Providers: Kai Nj MD Referring MD: Kai Nj MD Medicines: Propofol per Anesthesia Complications: No immediate complications. Estimated Blood Loss: Estimated blood loss was minimal. Procedure: Pre-Anesthesia Assessment: - ASA Grade Assessment: II - A patient with mild systemic disease. After I obtained informed consent, the scope was passed under direct vision. Throughout the procedure, the patient's blood pressure, pulse, and oxygen saturations were monitored continuously.The Olympus Pediatric Colonoscope was introduced through the anus and advanced to the cecum, identified by appendiceal orifice and ileocecal valve. The colonoscopy was performed without difficulty. The patient tolerated the procedure well. The quality of the bowel preparation was excellent. Findings: The perianal and digital rectal examinations were normal. A few diverticula were found in the sigmoid colon. Internal hemorrhoids were found during endoscopy. The hemorrhoids were Grade I (internal hemorrhoids that do not prolapse). A 4 mm polyp was found in the descending colon. The polyp was sessile. The polyp was removed with a cold snare. Resection and retrieval were complete. Estimated blood loss was minimal. Procedure Code(s): --- Professional --- 52348, Colonoscopy, flexible; with removal of tumor(s), polyp(s), or other lesion(s) by snare technique Diagnosis Code(s): --- Professional --- Z86.010, Personal history of colonic polyps K64.0, First degree hemorrhoids D12.4, Benign neoplasm of descending colon K57.30, Diverticulosis of large intestine without perforation or abscess without bleeding CPT copyright 2020 [employer]. All rights reserved. The codes documented in this report are preliminary and upon bonding and composite fabricator review may be revised to meet current compliance requirements. Kai Nj MD 09/28/2024 4:00:13 PM This report has been signed electronically.Kai Nj MD Number of Addenda: 0 Note Initiated On: 09/28/2024 3:26 PM Scope In: Scope Out: Endoscopy Department at [facility] - [address] [place] [id number] Procedure Note Kai Nj MD - 09/28/2024 [facility] GI Patient Name: Shweta Mcclain Procedure Date: 09/28/2024 3:26 PM Date of : 1965 Age: 59 Gender: Female Note Status: Finalized Attending MD: Kai Nj MD, Procedure Date No Time: 09/28/2024 Procedure: Colonoscopy Indications: High risk colon cancer surveillance: Personalhistory of colonic polyps Providers: Kai jN MD Referring MD: Kai Nj MD Medicines: [...] was minimal. Procedure Code(s): --- Professional --- 23573, Colonoscopy, flexible; with removal of tumor(s), polyp(s), or other lesion(s) by snare technique Diagnosis Code(s): --- Professional --- Z86.010, Personal history of colonic polyps K64.0, First degree hemorrhoids D12.4, Benign neoplasm of descending colon K57.30, Diverticulosis of large intestine without perforation or abscess without bleeding CPT copyright 2020 [employer]. All rights reserved. The codes documented in this report are preliminary and upon bonding and composite fabricator reviewmay be revised to meet current compliance requirements. Kia Nj MD 09/28/2024 4:00:13 PM This report has been signed electronically.Kai Nj MD Number of Addenda: 0 Note Initiated On: 09/28/2024 3:26 PM Scope In: Scope Out: Endoscopy Department at [facility] - [address] [place] [phone] IMPRESSION: - Diverticulosis in the sigmoid colon. - Internal hemorrhoids. - One 4 mm polyp in the descending colon, removedwith a cold snare. Resected and retrieved. Recommendation: - Repeat colonoscopy in 5 years for surveillance. - Await pathology results. - Use fiber, for example Citrucel, Fibercon, Konsylor Metamucil. Kai Nj MD GI~PROCEDURE ORDERABLES Final Re sult * Hepatitis C Screening (04/17/2022) [facility] Hepatitis C Screening Abstracted Result [facility] Historical Provider HEALTH MAINTENANCE Final Result * (ABNORMAL) Lipid panel (09/23/2021) [facility] LDL/HDL Ratio 4 0 - 4 Triglycerides 158(A) 0 - 150 mg/dL Cholesterol 217(A) 0 - 200 mg/dL HDL 51 >=40 mg/dL LDL Cholesterol 135(A) 0 - 100 mg/dL Blood Venous blood specimen / Unknown Result [facility] Historical Provider LAB BLOOD ORDERABLES Conchis l Result * HIV Screening (08/28/2017) [facility] HIV Screening Abstracted Historical Provider HEALTH MAINTENANCE Final Result from Last 3 Months or Most Recently Relevant to Health Maintenance Insurance [facility] PLAN Care Teams Resource Conservation Manager Relationship Specialty Start Date End Date Jak Hinojosa MD [address] [place] [phone] PCP - General Internal Medicine 10/04/14
--- OUTSIDE RECORDS SUMMARY | 2025-07-13 16:55 | XMS_ITS ---
[facility] Care Team Organization Name Specialty Phone Email Start Date End Da te [facility]UT GRIGSBY Primary Care 09/02/2022 4
--- OUTSIDE RECORDS SUMMARY | 2025-07-13 16:55 | XMS_ITS | Encounter Summary ---
Author Organization [employer] Address [address] [place] [address] Care Team Providers Care Circuit Rider Name Role Phone Jak Hinojosa MD Primary Care Provider [phone] Reason for Visit * Reason Onset Date Comments [place] 07/10/2025 Encounter Details Date Type Department Care Team (Late st Contact Info) Description 07/10/2025 Telephone Adult Medicine [address] [phone] Jak Hinojosa MD [address] [place] [address] Social History Tobacco Use Types Packs/Day Years [...] as of this encounter Progress Notes * Soniya Bennett RN - 07/10/2025 3:11 PM EDT She states her foot is red and painful. She had a fever last night of 101.3 degrees. She is taking Tylenol for the fever. An appointment was made for her to be seen in the office today at 4:[address] Ricardo and she isin agreement with this plan. * Jessica Jauregui - 07/10/2025 2:33 PM EDT Patient call requires triage: Symptoms patient is presenting: Emani (Screen Tender) is calling on behalf of the patient forthe lump on the top of her right foot. Patient states it is still hurting. Has gotten bigger in size. How long has patient had these symptoms?: 05/25/25 For ALL patients calling to schedule any [...] traveled recently to another state outside of [place], [place], [place], [place], [place], [place], [place]? no o If yes, did you quarantine [...] of accident/Injury: No If yes, gather 3rd libertarian insurance information Third Green Party Information: not applicable PCP: Jak Hinojosa MD Payor: [employer] PLAN / Plan: [employer] MEDICAID / Product Type: *No Product type* / documented in this encounter Plan of Treatment Upcoming Encounters Date Type Department Care Team (Late st Contact Info) Description 07/21/2025 9:45 AM EDT Office Visit Orthopedic Surgery - [place] [address] [facility] [address] [place] [phone] John Erazo DPM 175 [facility] [address] [place] [address] 07/21/2025 2:00 PM EDT Office Visit Vascular Surgery - [place] 300 [facility] [address] [place] [phone] Vanita Santos PA 300 [facility] [address] [place] [address] 07/25/2025 3:00 PM EDT Office Visit Adult Medicine [facility] [address] [place], [place] [phone] Madison Bello, ASSOCIATE PUBLISHER [address] [place], [place] 08/07/2025 3:30 PM EDT Office Visit Pulmonolgy - [place] [address] [facility] [address] [place] [phone] Inderjit Paez MD 175 [facility] [address] [place] [address] documented as of this encounter Visit Diagnoses Not on filedocumented in this encounter Care Teams Circuit Rider Relationship Specialty Start Date End Date Jak Hinojosa MD [address] [place] [address] PCP - General Internal Medicine 10/04/14 documented as of this encounter
== END 2025-07-13 16:15 | disposition home or self-care (01) ==
LOC: HO.RHES 15:38
PROVIDERS: PCP Internal Medicine; Visit Provider Student in an Organized Health Care Education/Training Program
DX: M1A.09X0 Idiopathic chronic gout, multiple sites, without tophus (tophi) (principal); M75.51 Bursitis of right shoulder; Z51.81 Encounter for therapeutic drug level monitoring; Z79.899 Other long term (current) drug therapy
CPT/HCPCS: 20610; 99213

== ENCOUNTER → 2025-07-13 15:38 | Outpatient (BNVA) | payer OTHER, SELFPAY | PROVIDERS: PCP Internal Medicine; Visit Provider Student in an Organized Health Care Education/Training Program | DX: M75.51 Bursitis of right shoulder (principal); Z51.81 Encounter for therapeutic drug level monitoring; Z79.52 Long term (current) use of systemic steroids; Z79.899 Other long term (current) drug therapy | CPT/HCPCS: 20610; 99212; J2003; J3301 ==